=== PATIENT | male | born 1935 | race Caucasian/White ===

== ENCOUNTER → 2017-10-02 09:18 | Outpatient (CLI) | payer MEDICARE, BC, SELFPAY ==
--- NOTE | 2017-10-02 | CI_ITS ---
Cerebrovascular Exam Indications: Follow-up carotid 433.10. Occlusion noted on NATALIO for several years. IMPRESSIONS 1. The bilateral vertebral arteries are patent with normal antegrade flow. 2. Study suggests occlusion involving the right internal carotid artery. 3. Study suggests 50-69% stenosis involving the left internal carotid artery. Labs, prior tests, procedures, and surgery: Left endarterectomy (1993). Labs, prior tests, procedures, and surgery: Left endarterectomy (1993). Carotid duplex study. Complete study and Doppler flow study including spectral analysis, color and locke scale imaging. Height: Height: 175.3cm. Height: 69in. Weight: Weight: 74.8kg. Weight: 164.7lb. Body mass index: BMI: 24.4kg/m^2. Body surface area: BSA: 1.92m^2. Location: Vascular laboratory. Patient status: Outpatient. Tables: Arterial flow: + +--------+--------+ Location V sys V ed + +--------+--------+ Right CCA - proximal 136cm/s 0cm/s + +--------+--------+ Right CCA - distal 95.9cm/s 0.8cm/s + +--------+--------+ Right ECA 422cm/s -------- + +--------+--------+ Right vertebral 98.2cm/s -------- + +--------+--------+ Left CCA - proximal 146cm/s 21.3cm/s + +--------+--------+ Left CCA - distal 101cm/s 20.2cm/s + +--------+--------+ Left ECA 149cm/s -------- + +--------+--------+ Left ICA - proximal 275cm/s 56.6cm/s + +--------+--------+ Left ICA - mid 186cm/s 27.7cm/s + +--------+--------+ Left ICA - distal 155cm/s 39cm/s + +--------+--------+ Left vertebral 33.5cm/s -------- + +--------+--------+ Velocity ratios: + + + + Left, V sys Left, V ed + + + + Max ICA/dist CCA 2.72 2.8 + + + + (Report amended ) Electronically signed by: Romel Ball [id number]
== END ==
PROVIDERS: Family Provider Family Medicine; PCP Family Medicine; Visit Provider Thoracic Surgery (Cardiothoracic Vascular Surgery)
DX: I65.23 Occlusion and stenosis of bilateral carotid arteries (principal)
CPT/HCPCS: 93880

== ENCOUNTER → 2018-11-07 12:47 | Outpatient (CLI) | payer MEDICARE, BC, SELFPAY ==
--- NOTE | 2018-11-07 12:49 | CA_ITS ---
APPROVED REPORT Bracelet Form Coverer: DARIANA Laterality: Bilateral Study Quality: Good Indications: Carotid stenosis Risk Factors Hypertension: Hyperlipidemia Doppler Spectral Velocity Analysis ECA (R) 458.00/28.10 cm/s ECA (L) 147.00/10.60 cm/s dCCA (R) 33.60/6.62 cm/s dICA (L) 103.00/20.40 cm/s pCCA (R) 71.50/12.60 cm/s Rach (L) 204.00/29.10 cm/s pICA (L) 277.00/32.80 cm/s Vert (R) 82.90/19.70 cm/s dCCA (L) 92.70/15.70 cm/s pCCA (L) 124.00/19.70 cm/s Vert (L) 40.90/8.90 cm/s ICA/CCA 2.68 Findings Study suggests 100% occlusion involving the right internal carotid artery unchanged from the 10/02/17 study. Study suggests 50-69% stenosis involving the left internal carotid artery unchanged from the 10/02/17 study. Antegrade flow seen bilateral vertebral arteries. Conclusion Study suggests 100% occlusion involving the right internal carotid artery unchanged from the 10/02/17 study. Study suggests 50-69% stenosis involving the left internal carotid artery unchanged from the 10/02/17 study. Antegrade flow seen bilateral vertebral arteries. Electronically signed by : Romel Ball MD 11/07/2018 20:14:18
== END ==
PROVIDERS: PCP Family Medicine; Visit Provider Thoracic Surgery (Cardiothoracic Vascular Surgery)
DX: I65.23 Occlusion and stenosis of bilateral carotid arteries (principal)
CPT/HCPCS: 93880

== ENCOUNTER → 2020-03-23 09:18 | Outpatient (CLI) | payer MEDICARE, BC, SELFPAY ==
--- NOTE | 2020-03-23 09:22 | CA_ITS ---
APPROVED REPORT Casing Sewer: DARIANA Laterality: Bilateral Study Quality: Good Indications: rt ica total occlussion Risk Factors Hypertension: Hyperlipidemia CAD, Smoking Surgery/Intervention Carotid Stent: left Endarterectomy: right Doppler Spectral Velocity Analysis ECA (R) 543.20/49.70 cm/s ECA (L) 209.60/23.50 cm/s dCCA (R) 47.50/8.30 cm/s dICA (L) 248.00/47.20 cm/s pCCA (R) 120.80/11.80 cm/s Rach (L) 304.70/35.40 cm/s pICA (L) 248.00/52.00 cm/s Vert (R) 115.20/18.80 cm/s dCCA (L) 115.20/16.50 cm/s pCCA (L) 155.20/14.10 cm/s Vert (L) 29.70/7.70 cm/s ICA/CCA Findings Study suggest 100% occlussion involving the right internal carotid artery unchanged from previous 10/2018 study. Study suggest 50-69% stenosis of left internal carotid artery with increaesd velocities since last 10/2018 study. Antegrade flow observed in bilateral vertebral arteries. Conclusion Study suggest 100% occlussion involving the right internal carotid artery unchanged from previous 10/2018 study. Study suggest 50-69% stenosis of left internal carotid artery with increaesd velocities since last 10/2018 study. Antegrade flow observed in bilateral vertebral arteries. Electronically signed by : Romel Ball MD 03/24/2020 16:37:16
== END ==
PROVIDERS: PCP Family Medicine; Visit Provider Thoracic Surgery (Cardiothoracic Vascular Surgery)
DX: I25.10 Atherosclerotic heart disease of native coronary artery without angina pectoris (principal); I65.23 Occlusion and stenosis of bilateral carotid arteries
CPT/HCPCS: 93880

== ENCOUNTER → 2020-05-26 08:54 | Outpatient (POV) | payer MEDICARE, BC, SELFPAY | PROVIDERS: Visit Provider Dermatology | DX: Z00.00 Encounter for general adult medical examination without abnormal findings (principal) ==

== ENCOUNTER → 2020-08-25 11:28 | Outpatient (CLI) | payer MEDICARE, BC, SELFPAY ==
--- NOTE | 2020-08-25 | CA_ITS ---
APPROVED REPORT Left Lower Extremity Venous Study for DVT. Insurance Verifier: [employer] Indications Left lower extremity edema with pain, Hx vein removal in Left leg >20 years ago Risk Factors HTN, HLD Medications Plavix Aspirin Vein Imaging CFV (L): compressive, spontaneous, phasic, augmentation SFJ (L): compressive, spontaneous, phasic, augmentation FEM (L): compressive, spontaneous, phasic, augmentation POP (L): compressive, spontaneous, phasic, augmentation PTV (L): compressive, spontaneous, phasic, augmentation GSV (L): compressive, spontaneous, phasic, augmentation SSV (L): compressive, spontaneous, phasic, augmentation Peroneals (L):compressive, spontaneous, phasic, augmentation GAS (L): compressive, spontaneous, phasic, augmentation Findings Color flow duplex demonstrates no evidence of DVT of the following left lower extremity Veins:Common Femoral Vein, Femoral Vein, Popliteal Vein, Posterior Tibial Veins, Peroneal Veins. Negative for DVT. Edamatous tissue at area of pain in mid lateral medial calf. Conclusion Negative for DVT. Electronically signed by : Romel Ball MD 08/25/2020 16:59:06
== END ==
PROVIDERS: PCP Family Medicine; Visit Provider Family Medicine
DX: M79.605 Pain in left leg (principal); R60.0 Localized edema
CPT/HCPCS: 93971

== ENCOUNTER → 2021-04-29 12:55 | Outpatient (CLI) | payer MEDICARE, BC, SELFPAY ==
--- NOTE | 2021-04-29 13:01 | CA_ITS ---
FINAL REPORT TECHNIQUE: Color Doppler, duplex Doppler and locke scale sonography of the bilateral neck arterial vasculature was performed. Velocities were measured in the carotid arteries. Stenosis evaluation based on the validated velocity criteria. CLINICAL HISTORY: MARIO,HX NATALIO OCCLUISON,STENT LT SUBCLAVIAN,DIZZINESS,SMOKER,HTN,HLD COMPARISON: March 23, 2020 FINDINGS: The peak systolic velocity of the left common carotid artery is 77 cm/s. There is stable occlusion of the right ICA. The peak systolic velocity of the left common carotid artery is 128 cm/s. The peak systolic velocity of the left internal carotid artery is 309 cm/s and end diastolic velocity 24 cm/s. A moderate amount of plaque is visualized. ICA/CCA ratio: 2.9 IMPRESSION: Stable occlusion of the right ICA with findings consistent with greater than 70% stenosis of the left ICA. Bilateral patent vertebral arteries with antegrade flow. Consider CTA or catheter directed angiography to further evaluate. Reviewed, Interpreted and Dictated by Keanu Cho III, MD Transcribed by Rodger Gonsalez Authenticated by Keanu Cho III, MD on 04/29/2021 02:03:18 PM [facility]
== END ==
PROVIDERS: PCP Family Medicine; Visit Provider Thoracic Surgery (Cardiothoracic Vascular Surgery)
DX: R42 Dizziness and giddiness (principal)
CPT/HCPCS: 93880

== ENCOUNTER 2021-08-01 23:47 | Emergency (ER) | payer MEDICARE, BC, SELFPAY ==
[2021-08-01 23:50] VITALS: BP 178/71; PULSE 84; RESP 16; TEMP 36.6; O2SAT 94; BMI 24.3
--- NOTE | 2021-08-02 00:18 | CT_ITS ---
PROCEDURE INFORMATION: Exam: CT Lumbar Spine Without Contrast Exam date and time: 08/02/2021 12:55 AM Age: 85 years old Clinical indication: Injury or trauma; Fall; Blunt trauma (contusions or hematomas) TECHNIQUE: Imaging protocol: Computed tomography images of the lumbar spine without contrast. Radiation optimization: All CT scans at this facility use at least one of these dose optimization techniques: automated exposure control; mA and/or kV adjustment per patient size (includes targeted exams where dose is matched to clinical indication); or iterative reconstruction. COMPARISON: CT THORACIC SPINE WO CON 08/02/2021 12:51 AM FINDINGS: Bones/joints: Age-indeterminate L1 superior endplate fracture. Discs/Spinal canal/Neural foramina: Degenerative changes at L3-L4 producing moderate spinal stenosis. Degenerative changes at L4-L5 produce severe spinal stenosis. Stomach and bowel: Mild sigmoid diverticulosis without diverticulitis. Vasculature: Advanced atherosclerotic disease of the arteries. Soft tissues: Unremarkable. IMPRESSION: 1. Age-indeterminate L1 superior endplate fracture. Please correlate with point tenderness. 2. Degenerative changes at L4-L5 produce severe spinal stenosis.
--- NOTE | 2021-08-02 00:18 | CT_ITS ---
PROCEDURE INFORMATION: Exam: CT Thoracic Spine Without Contrast Exam date and time: 08/02/2021 12:51 AM Age: 85 years old Clinical indication: Injury or trauma; Fall; Blunt trauma (contusions or hematomas) TECHNIQUE: Imaging protocol: Computed tomography images of the thoracic spine without contrast. Radiation optimization: All CT scans at this facility use at least one of these dose optimization techniques: automated exposure control; mA and/or kV adjustment per patient size (includes targeted exams where dose is matched to clinical indication); or iterative reconstruction. COMPARISON: CT CERVICAL SPINE WO CON 08/02/2021 12:48 AM FINDINGS: Bones/joints: Age-indeterminate superior endplate fracture of T12. Discs/Spinal canal/Neural foramina: No significant disc protrusion. No severe spinal canal stenosis. No significant neural foraminal narrowing. Soft tissues: Unremarkable. Other findings: Please see separate report for CT chest. IMPRESSION: Age-indeterminate superior endplate fracture of T12. Please correlate with point tenderness.
--- NOTE | 2021-08-02 00:18 | CT_ITS ---
PROCEDURE INFORMATION: Exam: CT Cervical Spine Without Contrast Exam date and time: 08/02/2021 12:48 AM Age: 85 years old Clinical indication: Injury or trauma; Fall; Blunt trauma TECHNIQUE: Imaging protocol: Computed tomography images of the cervical spine without contrast. Radiation optimization: All CT scans at this facility use at least one of these dose optimization techniques: automated exposure control; mA and/or kV adjustment per patient size (includes targeted exams where dose is matched to clinical indication); or iterative reconstruction. COMPARISON: US CA CAROTID DUPLEX BI 04/29/2021 1:02 PM FINDINGS: Bones/joints: No acute fracture. Normal alignment. Discs/Spinal canal/Neural foramina: No significant disc protrusion. No severe spinal canal stenosis. No significant neural foraminal narrowing. Lungs: Lung apices are normal. Soft tissues: Unremarkable. IMPRESSION: No acute fracture or malalignment of the cervical spine.
--- NOTE | 2021-08-02 00:21 | CT_ITS ---
PROCEDURE INFORMATION: Exam: CT Chest Without Contrast; Diagnostic Exam date and time: 08/02/2021 1:00 AM Age: 85 years old Clinical indication: Injury or trauma; Fall; Blunt trauma (contusions or hematomas); Additional info: Fall bilateral rib pain TECHNIQUE: Imaging protocol: Diagnostic computed tomography of the chest without contrast. Radiation optimization: All CT scans at this facility use at least one of these dose optimization techniques: automated exposure control; mA and/or kV adjustment per patient size (includes targeted exams where dose is matched to clinical indication); or iterative reconstruction. COMPARISON: CT THORACIC SPINE WO CON 08/02/2021 12:51 AM FINDINGS: Lungs: Moderate centrilobular emphysema. Moderate scarring and atelectasis in the lower lungs. Multiple nonspecific pulmonary nodules. For follow-up purposes, examples include: 7 mm right upper lobe pulmonary nodule image 69 series 4, 4 mm lingula nodule image 69 series 4, 3 mm lingula nodule image 76 series 4. Pleural spaces: Unremarkable. No pneumothorax. No pleural effusion. Heart: Coronary artery calcifications. Lymph nodes: Unremarkable. No enlarged lymph nodes. Vasculature: Severe atherosclerotic disease of the aorta. Left subclavian arterial stent. Bones/joints: Status post median sternotomy. Soft tissues: Unremarkable. Other findings: Stigmata of old granulomatous disease. IMPRESSION: 1. No acute intrathoracic organ injury. 2. Pulmonary nodules measuring up to 7 mm.For patients at low risk (minimal or absent history of smoking and of other known risk factors), recommend CT Chest at 3-6 months, then consider CT Chest at 18-24 months. For patients at high risk (history of smoking or of other known risk factors), recommend CT Chest at 3-6 months, then CT Chest at 18-24 months. (Reference: Pablito) REFERENCES: Pablito Soria et al. Guidelines for Management of Incidental Pulmonary Nodules Detected on CT Images: From the Fleischner Society 2017. Radiology. 2017;284(1):228-243.
--- NOTE | 2021-08-02 00:21 | XR_ITS ---
PROCEDURE INFORMATION: Exam: XR Right Elbow Exam date and time: 08/02/2021 1:08 AM Age: 85 years old Clinical indication: Injury or trauma; Fall; Blunt trauma (contusions or hematomas); Elbow; Right TECHNIQUE: Imaging protocol: XR Right elbow. Views: 3 or more views. COMPARISON: No relevant prior studies available. FINDINGS: Bones/joints: No acute fracture or dislocation. Soft tissues: Normal. IMPRESSION: No acute fracture or dislocation.
--- NOTE | 2021-08-02 00:24 | XR_ITS ---
PROCEDURE INFORMATION: Exam: XR Pelvis Exam date and time: 08/02/2021 1:14 AM Age: 85 years old Clinical indication: Injury or trauma; Fall; Blunt trauma (contusions or hematomas); Bilateral; Pelvic region TECHNIQUE: Imaging protocol: XR pelvis. Views: 1 or 2 view. COMPARISON: CT LUMBAR SPINE WO CON 08/02/2021 12:55 AM FINDINGS: Bones/joints: No acute fracture or dislocation. Soft tissues: Unremarkable. Vasculature: Vascular calcifications. IMPRESSION: No acute fracture or dislocation.
[2021-08-02 00:33] LABS: Basophils # 0.2 K/mm3 (0-0.2); Basophils % 2.8 % (0.1-2.0); Eosinophils # 0.1 K/mm3 (0.0-0.4); Eosinophils % 1.4 % (0.1-12.0); Hematocrit 53.2 % (42.0-52.0); Hemoglobin 17.9 g/dL (14.1-18.0); Lymphocytes # 3.4 K/mm3 (0.7-4.5); Lymphocytes % 43.2 % (10-50); Mean Corpuscular HGB Conc 33.6 g/dL (31.8-35.4); Mean Corpuscular Hemoglobin 32.1 pg (27.0-31.2); Mean Corpuscular Volume 95.4 fl (80-94); Mean Platelet Volume 8.6 fl (7.4-10.4); Monocytes # 0.5 K/mm3 (0.1-1.0); Monocytes % 5.7 % (1.7-9.3); Neutrophils # 3.7 K/mm3 (1.8-7.8); Platelet Count 233 K/mm3 (142-424); Red Blood Count 5.57 M/mm3 (4.60-6.20); Red Cell Distribution Width 14.2 % (11.5-17.5); White Blood Count 7.9 K/mm3 (4.8-10.8)
[2021-08-02 00:39] LABS: Alanine Aminotransferase 25 U/L (12-78); Albumin Level 4.9 g/dl (3.5-5.0); Albumin/Globulin Ratio 1.1 (1.1-1.8); Alkaline Phosphatase 90 U/L (38-126); Anion Gap 15.8 mEq/L (5-15); Aspartate Amino Transferase 47 U/L (17-59); Bilirubin,Total 0.5 mg/dl (0.2-1.3); Blood Urea Nitrogen 21 mg/dl (9-20); Calcium 10.1 mg/dl (8.4-10.2); Carbon Dioxide 25 mmol/L (22.0-30.0); Chloride 101 mmol/L (98-107); Creatinine Clearance Estimated 59 mL/min (50-200); Estimated Glomerular Filt Rate 71 ml/min (>60); GFR (African American) 86 ML/MIN (>60); Globulin 4.3 g/dL (1.3-3.2); Glucose 130 mg/dl (74-100); Potassium 3.8 mmoL/L (3.5-5.1); Sodium 138 mmol/L (136-145); Total Protein,Serum 9.2 g/dl (6.3-8.2)
[2021-08-02 00:41] LABS: INR 0.97 (0.9-1.1)
--- NOTE | 2021-08-02 02:32 | HMH.EDFALL ---
ED Disposition Clinical Impression: Contusion of rib on right side Qualifiers: Encounter type: initial encounter Qualified Code(s): S20.211A - Contusion of right front wall of thorax, initial encounter Disposition: Home, Self-Care Condition on Discharge: Good Instructions: DI for Rib Contusion Additional Instructions: see pcp this week Referrals: Janis Sparks MD [Primary Care Provider] - - Critical Care Critical Care Time: No Attestation: On 08/01/21, the high probability of a clinically significant, sudden or life threatening deterioration of the following system(s) required my full and direct attention, intervention and personal management. The time I documented below is in addition to time spent performing reported procedures but includes the following listed in this critical care notation. Medical Decision Making - Medical Records Medical records reviewed: Yes: I reviewed the patient's medical records. - Jaden Inquiry Pt receiving controlled substance: No Vital Signs: 08/01/21 23:50 Temperature 97.8 F Temperature Source Oral Pulse Rate [Left Radial] 84 Respiratory Rate 16 Blood Pressure [Right Arm] 178/71 H Blood Pressure Mean [Right Arm] 106 Blood Pressure Source [Right Arm] Automatic Cuff Blood Pressure Position [Right Arm] Sitting 02 Sat by Pulse Oximetry 94 L Oxygen Delivery Method Room Air - Lab Data Lab results reviewed: Yes: I reviewed the patient's lab results. Lab Results 08/02/21 00:16: WBC 7.9, RBC 5.57, Hgb 17.9, Hct 53.2 H, MCV 95.4 H, MCH 32.1 H, MCHC 33.6, RDW 14.2, Plt Count 233, MPV 8.6, Neut % (Auto) 47.0, Lymph % (Auto) 43.2, [place] % (Auto) 5.7, Eos % (Auto) 1.4, Baso % (Auto) 2.8 H, Neut # (Auto) 3.7, Lymph # (Auto) 3.4, [place] # (Auto) 0.5, Eos # (Auto) 0.1, Baso # (Auto) 0.2 08/02/21 00:16: Sodium 138, Potassium 3.8, Chloride 101, Carbon Dioxide 25, Anion Gap 15.8 H, BUN 21 H, Creatinine 1.00, Estimated Creat Clear 59, Estimated GFR 71, Est GFR ( Amer) 86, Glucose 130 H, Calcium 10.1, Total Bilirubin 0.5, AST 47, ALT 25, Alkaline Phosphatase 90, Total Protein 9.2 H, Albumin 4.9, Globulin 4.3 H, Albumin/Globulin Ratio 1.1 08/02/21 00:16: PT 11.0, INR 0.97 Result diagrams: 08/02/21 00:16 08/02/21 00:16 - Radiology Data #1 Image(s): Elbow, Pelvis Image Reviewed: Yes I have reviewed radiologist's interpretation Preliminary Findings: No Fracture Seen - CT Data CT Scan: C-Spine, Chest, T-Spine, L-Spine Time Received: 02:[address] Reviewed: Yes: I have viewed the radiologist's interpretation Preliminary Findings: Abnormal (no def acute fx ) Medical Decision Narrative: pt with no acute fx Fall HPI - General Chief Complaint: Fall Stated Complaint: AO 07/30/21 Fell injury right rib cage Time Seen by Provider: 08/02/21 02:32 Mode of Arrival: Wheelchair Source of Information: Patient, Spouse, Medical Record Limitations: Physical Limitations Description of Symptoms (Recalled from ER Triage Doc. by RN): FALL 4 DAYS AGO- DID NOT SEE A PROVIDER AT THAT TIME. PT REPORTS HE IS NOT GETTING BETTER AND IS HAVING MORE PAIN. PT REPORTS PAIN TO RIGHT RIBS AND RIGHT ELBOW. PT DENIES LOC- DENIES PAIN IN ALL OTHER AREAS. PT IS ON BLOOD THINNERS. - History of Present Illness HPI Narrative: fell a few days ago and has rt rib pain - has had episodes of dizzyness - on plavix and asa MD complaint: fall Onset (ago): day(s) Fall from: standing Fall witnessed: yes, by family Place fall occurred: home Loss of consciousness: none Prolonged down time: no Symptoms prior to fall: dizziness Context: history of frequent falls Location of injury: chest Severity: moderate Associated symptoms (after fall): denies - Related Data Allergies Allergy/AdvReac Type Severity Reaction Status Date / Time No Known Drug Allergies - Allergy Unknown NA Uncoded 02/14/17 14:34 Nkda [facility] History - Hepatitis A Screen Attestation statement:: This patient has been screened for
[2021-08-02 03:16] VITALS: BP 143/69; PULSE 73; RESP 16; TEMP 36.6; O2SAT 95
== END 2021-08-02 03:18 | disposition home or self-care (01) ==
PROVIDERS: Emergency Provider Emergency Medicine; PCP Family Medicine
DX: S20.211A Contusion of right front wall of thorax, initial encounter (principal); W01.0XXA Fall on same level from slipping, tripping and stumbling without subsequent striking against object, initial encounter; Y92.019 Unspecified place in single-family (private) house as the place of occurrence of the external cause
CPT/HCPCS: 71250; 72125; 72128; 72131; 72170; 73080; 80053; 85025; 85610; 96374; 96375; 99284

== ENCOUNTER → 2021-10-20 09:57 | Outpatient (CLI) | payer MEDICARE, BC, SELFPAY ==
--- NOTE | 2021-10-20 10:03 | CT_ITS ---
FINAL REPORT TECHNIQUE: Axial images were performed through the lumbar spine by computed tomography. Sagittal reconstruction images were also performed. This study was performed with techniques to keep radiation doses as low as reasonably achievable, (ALARA). Individualized dose reduction techniques using automated exposure control or adjustment of mA and/or kV according to the patient''s size were employed. CLINICAL HISTORY: LOW BACK PAIN, no known injury, patient states central low back pain COMPARISON: 08/02/2021 FINDINGS: There is abnormal indentation at the superior endplate of L2 measuring 40%, new since previous. There is abnormal indentation at superior endplate of L1 also measuring about 40%, similar to previous. L3-L5 appear unremarkable. L1-2: Mild retropulsion is superior endplate of L2. L2-3. No significant disc bulge or protrusion. L3-4: Mild diffuse disc bulge is present with mild to moderate bilateral neural foraminal narrowing. L4-5: Mild to moderate diffuse disc bulge is present with mild to moderate bilateral neural foraminal narrowing. L5-S1: Mild diffuse disc bulge is present. IMPRESSION: Interval development of a compression deformity of L2. Please correlate with clinical symptoms. Stable compression deformity of L1. Stable diffuse disc bulges at L3-4 and L4-5. Reviewed, Interpreted and Dictated by Breezy Swenson MD Transcribed by Wen Domínguez Authenticated and [facility]
== END ==
PROVIDERS: PCP Family Medicine; Visit Provider Family Medicine
DX: M54.50 Low back pain, unspecified (principal)
CPT/HCPCS: 72131

== ENCOUNTER 2021-11-09 21:15 | Emergency (ER) | payer MEDICARE, BC, SELFPAY ==
--- NOTE | 2021-11-09 21:09 | ECG_ITS ---
APPROVED REPORT Exam: Resting ECG HR:89 bpm ECG Measurements Heart Rate 89 AXES QRSd 137 QRS 7 QT 383 T 57 QTc 430 Conclusion Rhythm appears to be first-degree AV block RIGHT BUNDLE BRANCH BLOCK [120+ ms QRS DURATION, UPRIGHT V1, 40+ ms S IN I/aVL/V4/V5/V6] ST DEPRESSION, CONSIDER SUBENDOCARDIAL INJURY [0.1+ mV ST DEPRESSION] ABNORMAL ECG UNCONFIRMED REPORT Electronically signed by : Luis Pascual MD 11/10/2021 17:38:06
[2021-11-09 21:13] VITALS: BP 189/88; PULSE 81; RESP 16; TEMP 36.9; O2SAT 94; BMI 25.0
--- NOTE | 2021-11-09 21:13 | XR_ITS ---
PROCEDURE INFORMATION: Exam: XR Chest Exam date and time: 11/09/2021 9:27 PM Age: 86 years old Clinical indication: Other: Chest pain TECHNIQUE: Imaging protocol: Radiologic exam of the chest. Views: 1 view. 2 images received. Portable AP exam 9:29 p.m. COMPARISON: CT CHEST WO CON 08/02/2021 1:00 AM FINDINGS: Tubes, catheters and devices: Overlying compliance monitor electrodes. Lungs: Hypoventilation on the 2nd image, the lower lungs are much better inflated on the 1st image. No focal consolidation. Chronic lower pulmonary interstitial prominence. Multiple tiny bilateral pulmonary nodules were better seen on the previous CT from 08/02/2021, although a dense 5 mm nodule projected over the left heart border likely corresponds with the calcified granuloma seen in the left lung on the prior CT. The pulmonary vessels do not appear significantly congested on series 1. Pleural spaces: Unremarkable. No significant pleural effusion. No pneumothorax. Heart/Mediastinum: The cardiac silhouette is normal. Mediastinal surgical clips. Bones/joints: Sternotomy wires. Osteopenia. There are spinal degenerative changes, with multilevel disc narrrowing and spondylosis. IMPRESSION: 1. No acute findings. 2. Chronic pulmonary views. Os interstitial prominence and granulomatous changes. No focal consolidation. 3. Chronic mediastinal surgical changes. No acute vascular congestion. 4. Additional nonemergency and chronic findings as above.
--- NOTE | 2021-11-09 21:13 | ECG_ITS ---
APPROVED REPORT Exam: Resting ECG HR:60 bpm ECG Measurements Heart Rate 60 AXES QRSd 150 QRS 10 QT 419 T 90 QTc 419 Conclusion SINUS RHYTHM WITH 2ND DEGREE AV BLOCK, MOBITZ TYPE I (WENCKEBACH) RIGHT BUNDLE BRANCH BLOCK ST/T wave depression is unchanged from 2014 UNCONFIRMED REPORT Electronically signed by : Luis Pascual MD 11/10/2021 07:14:36
--- NOTE | 2021-11-09 21:15 | HMH.EDGENADL ---
Discharge Plan Disposition Patient Disposition: Xfer Other Condition: Fair Referrals Follow up/Referrals: Janis Sparks MD [Primary Care Provider] - See instructions Clinical Impressions Clinical Impression: Non-ST elevation (NSTEMI) myocardial infarction Stand Alone Forms Stand Alone Forms: Transfer Record - ED Discharge ED Provider: Divina Hernandez Adult HPI General Chief complaint: PAIN Stated complaint: bilateral arm pain Time Seen by Provider: 11/09/21 21:15 Mode of Arrival: EMS Source of Information: Patient Limitations: No Limitations History of Present Illness HPI narrative: 86-year-old male presenting to the emergency department with chest pain. Pain started roughly 1 hour ago. It was described as an aching pain. Located in the front of his chest and radiating to his right arm. He tried taking nitroglycerin with some relief. Now the pain radiates to both arms. It is described as dull, achy. Seems to have gotten a little better since he arrived with EMS. He has had pain like this before, not in over 20 years. Had a heart attack, 5 vessel CABG. Says he is felt well over the last few days. Denies recent exertional chest pain. No current nausea, diaphoresis, radiation to the back or jaw. No recent illness, fevers, chills, cough, shortness of breath. Related Data Allergies Allergy/AdvReac Type Severity Reaction Status Date / Time No Known Drug Allergies - Allergy Unknown NA Uncoded 02/14/17 14:34 Nkda [facility] Social History Smoking Status: Former smoker ROS Obtained: Yes All systems reviewed & no additional complaints except as documented Constitutional Constitutional: Denies chills, Denies fever(s) and Denies headache(s) ENT Ears, Nose, Mouth, and Throat: Denies dizziness and Denies headache(s) Cardiovascular Cardiovascular: Reports chest pain, Denies diaphoresis, Denies dyspnea, Denies leg edema and Reports radiating jaw, neck or arm pain Respiratory Respiratory: Denies cough, Denies dyspnea and Denies wheezing Gastrointestinal Gastrointestingal: Denies abdominal pain, nausea or vomiting Musculoskeletal Musculoskeletal: Denies back pain Neurologic Neurologic: Denies dizziness and Denies headache(s) Allergic/Immunologic Allergic/Immunologic: Denies wheezing Physical Exam General General appearance: alert and in no apparent distress Head Head exam: atraumatic and normocephalic Eye Eye exam: Present normal appearance Chest Chest inspection: Present normal inspection, symmetric chest wall rise and other (Well-healed sternotomy scar.); Absent tenderness Respiratory Respiratory exam: Present normal lung sounds bilaterally; Absent respiratory distress or wheezes Cardiovascular Cardiovascular exam: Present regular rate and normal rhythm; Absent systolic murmur Abdominal Exam Abdominal exam: Present soft; Absent distention or tenderness Extremities Exam Extremities exam: Present normal inspection and full ROM Neurological Exam Neurological exam: Present alert and oriented X3 Psychiatric Psychiatric exam: Present normal affect and normal mood Skin Skin exam: Present warm and dry Medical Decision Making Medical Records Medical records reviewed: Yes I reviewed the patient's medical records. Jaden Inquiry Pt receiving controlled substance: No Vital Signs: 11/09/21 21:13 11/09/21 21:30 11/09/21 22:00 Temperature 98.4 F Temperature Source Oral Pulse Rate 78 Pulse Rate [Right] 81 Respiratory Rate 16 11 L Blood Pressure 168/75 H 156/80 H Blood Pressure [Right Arm] 189/88 H Blood Pressure Mean 116 113 Blood Pressure Mean [Right Arm] 121 02 Sat by Pulse Oximetry 94 L 92 L Oxygen Delivery Method 11/09/21 22:30 11/09/21 23:00 11/09/21 23:30 Temperature Temperature Source Pulse Rate 89 70 Pulse Rate [Right] Respiratory Rate 16 14 17 Blood Pressure 137/71 131/73 125/63 Blood Pressure [Right Arm] Blood Pressure Mean 97 87 Blood Pres
[2021-11-09 21:30] VITALS: BP 168/75
[2021-11-09 21:32] LABS: Basophils # 0.1 K/mm3 (0-0.2); Basophils % 0.8 % (0.1-2.0); Eosinophils # 0.1 K/mm3 (0.0-0.4); Eosinophils % 0.6 % (0.1-12.0); Hematocrit 48.7 % (42.0-52.0); Hemoglobin 16.2 g/dL (14.1-18.0); Lymphocytes # 4.4 K/mm3 (0.7-4.5); Lymphocytes % 40.1 % (10-50); Mean Corpuscular HGB Conc 33.3 g/dL (31.8-35.4); Mean Corpuscular Hemoglobin 31.4 pg (27.0-31.2); Mean Corpuscular Volume 94.3 fl (80-94); Mean Platelet Volume 8.4 fl (7.4-10.4); Monocytes # 0.7 K/mm3 (0.1-1.0); Monocytes % 6.2 % (1.7-9.3); Neutrophils # 5.7 K/mm3 (1.8-7.8); Neutrophils % 52.4 % (37.0-80.0); Platelet Count 244 K/mm3 (142-424); Red Blood Count 5.16 M/mm3 (4.60-6.20); Red Cell Distribution Width 14.1 % (11.5-17.5)
[2021-11-09 21:38] LABS: Alanine Aminotransferase 27 U/L (12-78); Albumin Level 4.8 g/dl (3.5-5.0); Albumin/Globulin Ratio 1.3 (1.1-1.8); Alkaline Phosphatase 102 U/L (38-126); Anion Gap 19.9 mEq/L (5-15); Aspartate Amino Transferase 39 U/L (17-59); Bilirubin,Total 0.5 mg/dl (0.2-1.3); Blood Urea Nitrogen 22 mg/dl (9-20); Carbon Dioxide 25 mmol/L (22.0-30.0); Chloride 95 mmol/L (98-107); Creatinine Clearance Estimated 56 mL/min (50-200); Estimated Glomerular Filt Rate 92 ml/min (>60); GFR (African American) 111 ML/MIN (>60); Globulin 3.6 g/dL (1.3-3.2); Glucose 140 mg/dl (74-100); Potassium 3.9 mmoL/L (3.5-5.1); Sodium 136 mmol/L (136-145); Total Protein,Serum 8.4 g/dl (6.3-8.2)
[2021-11-09 21:49] LABS: Troponin I 0.02 ng/ml (0.00-0.034)
[2021-11-09 22:00] VITALS: BP 156/80; PULSE 78; RESP 11; O2SAT 92
--- NOTE | 2021-11-09 22:07 | PC.NURSE ---
call to [facility] transfer center, patient wants to transfer there, extension work director cardiology to call back
--- NOTE | 2021-11-09 22:23 | PC.NURSE ---
Dr. Patel spoke with [facility], he has been accepted and will be transferred in the morning
[2021-11-09 22:30] VITALS: BP 137/71; PULSE 89; RESP 16; O2SAT 92
[2021-11-09 23:00] VITALS: BP 131/73; RESP 14; O2SAT 92
[2021-11-09 23:30] VITALS: BP 125/63; PULSE 70; RESP 17; O2SAT 92
--- NOTE | 2021-11-09 23:46 | PC.NURSE ---
pt moved to hospital bed @ this time
[2021-11-10] VITALS (10 sets, daily range): BP systolic 106–148; BP diastolic 45–82; PULSE 64–99; RESP 12–19; TEMP 36.8; O2SAT 91–95
[2021-11-10 00:43] LABS: Troponin I 0.52 ng/ml (0.00-0.034)
--- NOTE | 2021-11-10 00:55 | PC.NURSE ---
Spoke with Brandy at [facility] for Heparin gtt and bolus. She is to enter orders remotely.
[2021-11-10 01:10] LABS: Coronavirus 19, PCR Not Detected (NotDetected); Influenza A, PCR Not Detected (NotDetected); Influenza B, PCR Not Detected (NotDetected)
[2021-11-10 01:19] LABS: Activated Partial Thrombo Time 28.2 seconds (22.8-30.6); INR 1.01 (0.9-1.1); Prothrombin Time 10.9 seconds (10.1-12.5)
--- NOTE | 2021-11-10 03:30 | PC.NURSE ---
LABS DRAWN. PT ASSISTED WITH REPOSITIONING FOR COMFORT. FAMILY REMAINS AT BEDSIDE. NO COMPLAINTS VOICED. NO ACUTE DISTRESS NOTED.
[2021-11-10 03:48] LABS: Troponin I 2.02 ng/ml (0.00-0.034)
--- NOTE | 2021-11-10 03:50 | PC.NURSE ---
MADE AWARE OF TROP. RESULTS.
--- NOTE | 2021-11-10 03:57 | PC.NURSE ---
called and spoke with Sangita Moe @ [facility] to give update that pt trop had increased.
--- NOTE | 2021-11-10 05:47 | PC.NURSE ---
Kenan notified that patient needs to be at [facility] at 7 am.
== END 2021-11-10 06:18 | disposition other institution (70) ==
PROVIDERS: Emergency Provider Emergency Medicine; PCP Family Medicine
DX: R07.9 Chest pain, unspecified (principal); M79.602 Pain in left arm; M79.601 Pain in right arm; I25.2 Old myocardial infarction; Z95.1 Presence of aortocoronary bypass graft; Z20.822 Contact with and (suspected) exposure to COVID-19
CPT/HCPCS: 71045; 80053; 84484; 85025; 85610; 85730; 93005; 96374; 96376; 99285; C9803; U0003; U0005

== ENCOUNTER → 2021-12-28 09:28 | Outpatient (CLI) | payer MEDICARE, BC, SELFPAY ==
--- NOTE | 2021-12-28 09:35 | XR_ITS ---
FINAL REPORT CLINICAL HISTORY: LOW BACK PAIN COMPARISON: CT dated October 20, 2021 FINDINGS: LUMBAR SPINE 5 views of the lumbar spine were obtained. There are moderate compression fractures T12 through L4. The compression fractures at L3 and L4 are new since the CT. The vertebral alignment is normal. There is mild leftward curvature. There are moderate degenerative changes. There are diffuse vascular calcifications. IMPRESSION: Moderate compression fractures T12- L4 with compression fractures at L3 and L4 being new since the prior CT. Reviewed, Interpreted and Dictated by Keanu Cho III, MD Transcribed by Juliann Ewing Authenticated and [facility]
== END ==
PROVIDERS: PCP Family Medicine; Visit Provider Family Medicine
DX: M54.50 Low back pain, unspecified (principal)
CPT/HCPCS: 72110

== ENCOUNTER → 2022-01-07 11:19 | Outpatient (CLI) | payer MEDICARE, BC, SELFPAY ==
[2022-01-07 12:37] LABS: Blood Urea Nitrogen 22 mg/dl (9-20); Estimated Glomerular Filt Rate 80 ml/min (>60); GFR (African American) 97 ML/MIN (>60)
== END ==
PROVIDERS: PCP Family Medicine; Visit Provider Family Medicine
DX: Z01.812 Encounter for preprocedural laboratory examination (principal)
CPT/HCPCS: 36415; 82565; 84520

== ENCOUNTER → 2022-01-17 09:27 | Outpatient (CLI) | payer MEDICARE, BC, SELFPAY ==
--- NOTE | 2022-01-17 09:31 | MR_ITS ---
FINAL REPORT CLINICAL HISTORY: COMPRESSION FRACTURES SEVERE LOW BACK PAIN X6 MONTHS, NO INJURY COMPARISON: Prior CT dated October 20, 2021 FINDINGS: Multiplanar MR imaging of the lumbar spine was performed without and with contrast. On the sagittal T2-weighted images, disc degeneration is seen at multiple levels. The vertebral alignment is normal. There are chronic T12, L1 and L2 compression fractures. There is an acute or subacute moderate L3 compression fracture with 50% loss of central height. There is an acute to subacute L4 compression fracture with 70% loss of anterior height. The L3 and L4 compression fractures are new since the prior CT. The conus is seen at approximately the L1 level and has an unremarkable appearance. L12-L1: An annular disc bulge is present with mild bilateral neural foraminal narrowing. L1-2: There is an annular disc bulge with facet arthropathy. There is mild bilateral neural foraminal narrowing. No significant canal stenosis is seen. L2-3: There is an annular disc bulge with facet arthropathy and vertebral osteophytes. There is mild bilateral neural foraminal narrowing. No significant canal stenosis is seen. L3-4: There is an annular disc bulge with facet arthropathy and vertebral osteophytes. There is mild right and moderate left neural foraminal narrowing. No significant canal stenosis is seen. L4-5: There is an annular disc bulge with facet arthropathy. There is a small right posterolateral disc protrusion with moderate right and mild left neural foraminal narrowing. No significant canal stenosis is seen. L5-S1: There is an annular disc bulge with facet arthropathy. There is mild right and moderate left neural foraminal narrowing. No significant canal stenosis is seen. On the postcontrast images, there is enhancement of the L3 and L4 vertebral bodies as nonspecific finding and could be reactive. IMPRESSION: Multilevel mild degenerative disc disease and spondylosis with areas of neural foraminal narrowing as described. Chronic T12, L1 and L2 compression fractures with new compression fractures at L3 and L4 as above. Reviewed, Interpreted and Dictated by Keanu Cho III, MD Transcribed by Juliann Ewing Authenticated and [facility]
== END ==
PROVIDERS: PCP Family Medicine; Visit Provider Family Medicine
DX: M54.50 Low back pain, unspecified (principal); S32.010A Wedge compression fracture of first lumbar vertebra, initial encounter for closed fracture; S32.040A Wedge compression fracture of fourth lumbar vertebra, initial encounter for closed fracture; S32.050A Wedge compression fracture of fifth lumbar vertebra, initial encounter for closed fracture; S32.020A Wedge compression fracture of second lumbar vertebra, initial encounter for closed fracture; S32.030A Wedge compression fracture of third lumbar vertebra, initial encounter for closed fracture
CPT/HCPCS: 72158; 76376; A9576

== ENCOUNTER 2022-02-12 11:05 | Emergency (ER) | payer MEDICARE, BC, SELFPAY ==
[2022-02-12 11:07] VITALS: BP 138/64; PULSE 88; RESP 18; TEMP 36.6; O2SAT 95; BMI 25.7
--- NOTE | 2022-02-12 11:19 | HMH.EDGENADL ---
Discharge Plan Disposition Patient Disposition: Home, Self-Care Condition: Fair Referrals Follow up/Referrals: Janis Sparks MD [Primary Care Provider] - See instructions Activity Restrictions/Add. Instructions Additional Instructions/Restrictions: Continue taking Lortab 7.5 mg for pain. You may need to take a whole pill when the pain is more severe. For constipation, continue taking MiraLAX daily. You also may use an [id number] Dulcolax suppository daily until bowel movement achieved. Nxvg-[id number] magnesium citrate one half bottle daily until bowel movement achieved. Clinical Impressions Clinical Impression: Back pain, Spinal compression fracture, Acute constipation Discharge ED Provider: Ray Antonio General Adult HPI General Chief complaint: PAIN Stated complaint: compression x spine,pain Time Seen by Provider: 02/12/22 11:59 History of Present Illness HPI narrative: Patient has known spinal compression fractures. He says he was only having mild pain until this Monday when he started having severe paroxysms for spasms of pain. Paroxysms are induced or worsened by movement. No numbness or weakness. No loss of bowel or bladder control. Locates his pain at the lower thoracic and upper lumbar area. He has known compression fractures and has seen a neurosurgeon. states that they do not feel that kyphoplasty/vertebroplasty would be of benefit as the fractures appeared chronic, but recommended physical therapy. He had his first physical therapy on Monday, then started having pain on Monday. His says that he just did some stretches with an elastic band during physical therapy. She suspects that the physical therapy is what caused his pain to worsen. He feels like there is something slipping in his back and wonders whether his fractures have worsened. He takes Lortab 7.5 mg for pain, he took a half of a pill this morning. He has been constipated and is hesitant to take more pain medication. Declines any pain medication at this time. Patient has not had a bowel movement in over a week. He has been trying MiraLAX and prune juice and prunes without improvement. No enemas or laxatives or suppositories have been tried. He is not complaining of any rectal or abdominal pain. Related Data Allergies Allergy/AdvReac Type Severity Reaction Status Date / Time No Known Drug Allergies - Allergy Unknown NA Uncoded 02/14/17 14:34 Nkda [facility] Disclaimer: The information contained in this section may have been updated after the patient was seen, as this information can be updated by other users. Social History Smoking Status: Unknown if ever smoked ROS Obtained: Yes Systems reviewed as appropriate & no additional complaints except as documented Constitutional Constitutional: Denies fever(s) and Denies weakness Musculoskeletal Musculoskeletal: Reports back pain, Denies numbness and Denies radiating pain into limb Neurologic Neurologic: Denies numbness and Denies weakness Physical Exam General General appearance: alert and in no apparent distress Chest Chest inspection: Present normal inspection and symmetric chest wall rise Respiratory Respiratory exam: Absent respiratory distress Cardiovascular Cardiovascular exam: Present regular rate Back Exam Back exam: Present vertebral tenderness Back 1 view image: 1. Tenderness Neurological Exam Neurological exam: Present alert and oriented X3; Absent motor sensory deficit Psychiatric Psychiatric exam: Present normal affect and normal mood Skin Skin exam: Present warm and dry Medical Decision Making Medical Records Medical records reviewed: Yes I reviewed the patient's medical records. MR Comment: Reviewed previous lumbar spine x-ray and MRI results: Procedure(s): XR lumbar spine min 4V Accession Number(s): [id number] cc: Keanu Cho MD; Janis Sparks MD~ FINAL REPORT CLINICAL HISTORY: LOW BACK PAIN C
[2022-02-12 12:00] VITALS: BP 106/59; PULSE 68; O2SAT 93
--- NOTE | 2022-02-12 12:05 | CT_ITS ---
PROCEDURE INFORMATION: Exam: CT Lumbar Spine Without Contrast Exam date and time: 02/12/2022 12:37 PM Age: 86 years old Clinical indication: Low back pain; Additional info: Back pain, comp fxs TECHNIQUE: Imaging protocol: Computed tomography of the lumbar spine without contrast. Radiation optimization: All CT scans at this facility use at least one of these dose optimization techniques: automated exposure control; mA and/or kV adjustment per patient size (includes targeted exams where dose is matched to clinical indication); or iterative reconstruction. COMPARISON: MR LUMBAR SPINE WO/W CON 01/17/2022 9:49 AM FINDINGS: Bones/joints: Severe osteopenia with chronic L1, L2, L3, and L4 compression fractures, with 4 mm retropulsion at the L3 and L4 levels. Localized sclerosis in association with the L4 compression fracture. Multilevel lumbar spinal stenosis, of greatest severity at the L3-L4 and L4-L5 levels, in association with disc bulging, ligamentous hypertrophy, and facet arthropathy.Note that assessment of disc, spinal cord, and nerve root pathology is limited in the absence of intrathecal contrast. Vasculature: Prominent vascular calcification. Soft tissues: Unremarkable appearance of the paraspinous soft tissues. IMPRESSION: 1. Multilevel lumbar spinal stenosis, of greatest severity at the L3-L4 and L4-L5 levels, in association with disc bulging, ligamentous hypertrophy, and facet arthropathy. 2. Severe osteopenia with chronic L1, L2, L3, and L4 compression fractures, with 4 mm retropulsion at the L3 and L4 levels.
--- NOTE | 2022-02-12 12:05 | CT_ITS ---
PROCEDURE INFORMATION: Exam: CT Thoracic Spine Without Contrast Exam date and time: 02/12/2022 12:34 PM Age: 86 years old Clinical indication: Pain in thoracic spine; Additional info: Back pain, comp fxs TECHNIQUE: Imaging protocol: Computed tomography of the thoracic spine without contrast. Radiation optimization: All CT scans at this facility use at least one of these dose optimization techniques: automated exposure control; mA and/or kV adjustment per patient size (includes targeted exams where dose is matched to clinical indication); or iterative reconstruction. COMPARISON: CT THORACIC SPINE WO CON 08/02/2021 12:51 AM FINDINGS: Bones/joints: Osteopenia with stable chronic compression deformities, of greatest severity at the T12 level. Additional Schmorl's nodes and vertebral endplate irregularity. Degenerative change and mild scoliosis. Soft tissues: Normal caliber of the paraspinous soft tissues. Vasculature: Left subclavian artery stent. Calcification and ectasia of the thoracic aorta. Lymph nodes: Multiple calcified and noncalcified lymph nodes. Lungs: Severe COPD, interstitial disease, chronic granulomatous disease. Additional noncalcified nodules which were better visualized on previous chest CT. Mild dependent airspace disease. Coronary arteries: Coronary artery calcification. Other findings: Small hiatal hernia. When correlating with the previous study, no significant interval changes are present. IMPRESSION: 1. Osteopenia with stable chronic compression deformities in the thoracic spine, of greatest severity at the T12 level. 2. Additional findings as described above.
[2022-02-12 12:46] VITALS: BP 129/63; PULSE 95; RESP 18; O2SAT 97
[2022-02-12 13:01] VITALS: BP 94/49; PULSE 80; RESP 18; O2SAT 94
[2022-02-12 13:30] VITALS: BP 129/70; PULSE 86; RESP 16; O2SAT 88
[2022-02-12 14:36] VITALS: BP 129/70; PULSE 86; RESP 16; TEMP 36.6; O2SAT 94
== END 2022-02-12 14:40 | disposition home or self-care (01) ==
PROVIDERS: Emergency Provider Emergency Medicine; PCP Family Medicine
DX: M54.50 Low back pain, unspecified (principal); M51.46 Schmorl's nodes, lumbar region; S32.039A Unspecified fracture of third lumbar vertebra, initial encounter for closed fracture; S32.049A Unspecified fracture of fourth lumbar vertebra, initial encounter for closed fracture; I77.812 Thoracoabdominal aortic ectasia; M47.9 Spondylosis, unspecified; M62.838 Other muscle spasm; G89.29 Other chronic pain; D71 Functional disorders of polymorphonuclear neutrophils; J84.9 Interstitial pulmonary disease, unspecified; J44.9 Chronic obstructive pulmonary disease, unspecified; Z95.5 Presence of coronary angioplasty implant and graft
CPT/HCPCS: 72128; 72131; 99285

== ENCOUNTER → 2022-04-05 16:55 | Outpatient (CLI) | payer MEDICARE, BC, SELFPAY ==
--- NOTE | 2022-04-05 17:05 | XR_ITS ---
PROCEDURE INFORMATION: Exam: XR Chest Exam date and time: 04/05/2022 5:06 PM Age: 86 years old Clinical indication: Pain; Right-sided; Prior surgery; Surgery type: Open heart and kypho; Additional info: Chest pain, fever TECHNIQUE: Imaging protocol: Radiologic exam of the chest. Views: 2 views. COMPARISON: CR XR CHEST PORTABLE 11/09/2021 9:27 PM FINDINGS: Lungs: A few left lung calcified granulomas are noted. There is very mild chronic interstitial prominence. No consolidation or overt failure. Pleural spaces: Unremarkable. No pleural effusion. No pneumothorax. Heart/Mediastinum: Prior CABG. The heart is not enlarged. Vasculature: Unremarkable. Bones/joints: Evidence of prior median sternotomy. Vertebroplasty of what I believe is the L1 body. Other findings: Round artifactual opacity projects over the left heart border on 2 of the frontal views. IMPRESSION: No acute infiltrate or failure.
== END ==
PROVIDERS: PCP Family Medicine; Visit Provider Family Medicine
DX: R07.9 Chest pain, unspecified (principal); R50.9 Fever, unspecified
CPT/HCPCS: 71046

== ENCOUNTER → 2022-05-17 12:00 | Outpatient (CLI) | payer MEDICARE, BC, SELFPAY ==
--- NOTE | 2022-05-17 12:10 | XR_ITS ---
FINAL REPORT CLINICAL HISTORY: THORACIC BACK PAIN FINDINGS: THORACIC SPINE Three views were obtained. On the lateral view there is a compression deformity of a lower thoracic vertebrae with about 70% loss of height. This is believed to be T12. There are postoperative changes from prior kyphoplasty. There is indentation of the superior endplate of T10 which is stable. There is significant loss of height of the upper lumbar vertebrae. There is no malalignment. The disc spaces are preserved. There is no soft tissue abnormality. IMPRESSION: Stable multiple compression deformities. Reviewed, Interpreted and Dictated by Breezy Swenson MD Transcribed by Juliann Ewing Authenticated and [facility]
== END ==
PROVIDERS: PCP Family Medicine; Visit Provider Family Medicine
DX: M54.6 Pain in thoracic spine (principal)
CPT/HCPCS: 72072

== ENCOUNTER → 2022-05-27 14:30 | Outpatient (CLI) | payer MEDICARE, BC, SELFPAY ==
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
== END ==
PROVIDERS: PCP Family Medicine; Visit Provider Family Medicine
DX: R07.81 Pleurodynia (principal)
CPT/HCPCS: 71101

== ENCOUNTER 2022-10-11 11:00 | Outpatient (RCR) | payer MEDICARE, BC, SELFPAY | END 2022-10-11 11:05 | disposition home or self-care (01) | LOC: PT 11:00 | PROVIDERS: Visit Provider Radiology Diagnostic Radiology | DX: S32.010D Wedge compression fracture of first lumbar vertebra, subsequent encounter for fracture with routine healing (principal) | CPT/HCPCS: 97010; 97110; 97116; 97163; 97164; 97530 ==

== ENCOUNTER 2022-11-24 09:44 | Emergency (ER) | payer OTHER, MEDICARE, BC, SELFPAY ==
[2022-11-24 09:46] VITALS: BP 166/62; PULSE 78; RESP 16; TEMP 36.6; O2SAT 97; BMI 25.4
[2022-11-24 10:00] VITALS: BP 127/54; PULSE 68; O2SAT 96
--- NOTE | 2022-11-24 10:03 | PC.NURSE ---
dr martinez at bedside
--- NOTE | 2022-11-24 10:03 | PC.NURSE ---
Dr. Coburn at BS for pt eval
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
[2022-11-24 10:36] LABS: Basophils # 0.1 K/mm3 (0-0.2); Basophils % 0.6 % (0.1-2.0); Eosinophils % 0.3 % (0.1-12.0); Hematocrit 51.9 % (42.0-52.0); Hemoglobin 16.6 g/dL (14.1-18.0); Lymphocytes # 1.9 K/mm3 (0.7-4.5); Lymphocytes % 22.7 % (10-50); Mean Corpuscular HGB Conc 31.9 g/dL (31.8-35.4); Mean Corpuscular Hemoglobin 30.2 pg (27.0-31.2); Mean Corpuscular Volume 94.8 fl (80-94); Mean Platelet Volume 7.9 fl (7.4-10.4); Monocytes # 0.4 K/mm3 (0.1-1.0); Monocytes % 5.3 % (1.7-9.3); Neutrophils # 5.9 K/mm3 (1.8-7.8); Platelet Count 237 K/mm3 (142-424); Red Blood Count 5.48 M/mm3 (4.60-6.20); Red Cell Distribution Width 14.6 % (11.5-17.5); White Blood Count 8.3 K/mm3 (4.8-10.8)
[2022-11-24 10:40] LABS: Chloride 99 mmol/L (98-107); Potassium 4.1 mmoL/L (3.5-5.1); Sodium 138 mmol/L (136-145)
[2022-11-24 10:42] LABS: Blood Urea Nitrogen 15 mg/dl (9-20); Creatinine Clearance Estimated 51 mL/min (50-200); Estimated Glomerular Filt Rate 80 ml/min (>60); GFR (African American) 97 ML/MIN (>60)
[2022-11-24 10:43] LABS: Alanine Aminotransferase 24 U/L (12-78); Albumin Level 4.6 g/dl (3.5-5.0); Albumin/Globulin Ratio 1.1 (1.1-1.8); Alkaline Phosphatase 99 U/L (38-126); Anion Gap 15.1 mEq/L (5-15); Aspartate Amino Transferase 34 U/L (17-59); Bilirubin,Total 0.7 mg/dl (0.2-1.3); Calcium 9.8 mg/dl (8.4-10.2); Carbon Dioxide 28 mmol/L (22.0-30.0); Globulin 4.1 g/dL (1.3-3.2); Glucose 107 mg/dl (74-100); Total Protein,Serum 8.7 g/dl (6.3-8.2)
[2022-11-24 14:33] VITALS: BP 130/88; PULSE 61; RESP 20; TEMP 36.6; O2SAT 97
== END 2022-11-24 14:36 | disposition home or self-care (01) ==
PROVIDERS: Emergency Provider Emergency Medicine; PCP Family Medicine
DX: M54.9 Dorsalgia, unspecified (principal); I25.10 Atherosclerotic heart disease of native coronary artery without angina pectoris; K86.89 Other specified diseases of pancreas; R91.8 Other nonspecific abnormal finding of lung field; V49.49XA Driver injured in collision with other motor vehicles in traffic accident, initial encounter
CPT/HCPCS: 70450; 71275; 72125; 72128; 72131; 74174; 80053; 85025; 86850; 99285; Q9967

== ENCOUNTER 2022-12-03 15:21 | Inpatient (IN) | payer MEDICARE, BC, SELFPAY ==
[2022-12-03] VITALS (8 sets, daily range): BP systolic 110–142; BP diastolic 50–70; PULSE 66–74; RESP 16–20; TEMP 36.9; O2SAT 85–96; BMI 20.7; BMI 32.0
--- NOTE | 2022-12-03 15:28 | ECG_ITS ---
APPROVED REPORT Exam: Resting ECG HR:72 bpm ECG Measurements Heart Rate 72 AXES MS 262 P 72 QRSd 150 QRS -13 QT 400 T 61 QTc 424 Conclusion SINUS RHYTHM WITH FIRST DEGREE AV BLOCK RIGHT BUNDLE BRANCH BLOCK [120+ ms QRS DURATION, UPRIGHT V1, 40+ ms S IN I/aVL/V4/V5/V6] MODERATE VOLTAGE CRITERIA FOR LVH, CONSIDER NORMAL VARIANT [MEETS CRITERIA IN ONE OF: R(aVL), S(V1), R(V5), R(V5/V6)+S(V1)] ABNORMAL ECG UNCONFIRMED REPORT Electronically signed by : Luis Pascual MD 12/04/2022 07:34:00
--- NOTE | 2022-12-03 15:36 | PC.NURSE ---
Dr. Gar at [facility] for pt eval
--- NOTE | 2022-12-03 15:48 | CT_ITS ---
PROCEDURE INFORMATION: Exam: CT Abdomen And Pelvis With Contrast Exam date and time: 12/03/2022 4:28 PM Age: 87 years old Clinical indication: Abdominal pain; Prior surgery; Surgery date: Post-operative (0-2 days); Surgery type: Hernia repair; Additional info: Recent bilat ing sreedhar repair, diffuse pain TECHNIQUE: Imaging protocol: Computed tomography of the abdomen and pelvis with contrast. Radiation optimization: All CT scans at this facility use at least one of these dose optimization techniques: automated exposure control; mA and/or kV adjustment per patient size (includes targeted exams where dose is matched to clinical indication); or iterative reconstruction. Contrast material: ISOVUE; Contrast volume: 70 ml; Contrast route: IV; REPORTING DATA: Count of CT and Cardiac NM exams in prior 12 months: This patient has received 8 known CTs and 0 known cardiac nuclear medicine studies in the 12 months prior to the current study. COMPARISON: CT ANGIO ABDOMEN PELVIS 11/24/2022 11:32 AM FINDINGS: Liver: Normal. No mass. Gallbladder and bile ducts: Normal. No calcified stones. No ductal dilation. Pancreas: Fatty atrophy of the pancreas. Spleen: Normal. No splenomegaly. Adrenal glands: Normal. No mass. Kidneys and ureters: Mild bilateral renal cortical scarring. Mild bilateral perinephric inflammatory fat stranding, nonspecific, and can be seen in the setting of pyelonephritis versus diabetes. Stomach and bowel: Unremarkable. No obstruction. No mucosal thickening. Appendix: Post appendectomy changes. Intraperitoneal space: No ascites. No free air. No significant fluid collection. Vasculature: Severe aortoiliac atherosclerosis. No abdominal aortic aneurysm. Lymph nodes: Unremarkable. No enlarged lymph nodes. Urinary bladder: Unremarkable as visualized. Reproductive: Unremarkable as visualized. Bones/joints: Persistent L1 vertebral augmentation changes. Again seen are L2, L3, and L4 vertebral body compression fractures, grossly unchanged compared to CT 11/24/2022 and worst at the L4 vertebral body, with 90% height loss. Soft tissues: Post surgical changes of bilateral inguinal hernia repair, with no significant residual hernia present. There is subcutaneous gas within bilateral inguinal canals, and along bilateral anterolateral abdominal kumari, within normal limits for recent surgical repair. No abscess or abnormal fluid collection. IMPRESSION: 1. Post surgical changes of bilateral inguinal hernia repair, with no significant residual hernia present. There is subcutaneous gas within bilateral inguinal canals, and along bilateral anterolateral abdominal kumari, within normal limits for recent surgical repair. No abscess or abnormal fluid collection. 2. Persistent L1 vertebral augmentation changes. Again seen are L2, L3, and L4 vertebral body compression fractures, grossly unchanged compared to CT 11/24/2022 and worst at the L4 vertebral body, with 90% height loss. 3. Mild bilateral renal cortical scarring. Mild bilateral perinephric inflammatory fat stranding, nonspecific, and can be seen in the setting of pyelonephritis versus diabetes.
--- NOTE | 2022-12-03 15:49 | CT_ITS ---
PROCEDURE INFORMATION: Exam: CTA Chest With Contrast Exam date and time: 12/03/2022 4:28 PM Age: 87 years old Clinical indication: Shortness of breath; Additional info: Post operative hypoxemia, SOB TECHNIQUE: Imaging protocol: Computed tomographic angiography of the chest with contrast. Exam focused on the arteries. 3D rendering (Not supervised by radiologist): MIP and/or 3D reconstructed images were created by the technologist. Radiation optimization: All CT scans at this facility use at least one of these dose optimization techniques: automated exposure control; mA and/or kV adjustment per patient size (includes targeted exams where dose is matched to clinical indication); or iterative reconstruction. Contrast material: ISOVUE; Contrast volume: 70 ml; Contrast route: INTRAVENOUS (IV); REPORTING DATA: Count of CT and Cardiac NM exams in prior 12 months: This patient has received 8 known CTs and 0 known cardiac nuclear medicine studies in the 12 months prior to the current study. COMPARISON: CT ANGIO CHEST 11/24/2022 11:32 AM FINDINGS: Pulmonary arteries: No pulmonary embolism. Aorta: Coronary artery and aortic atherosclerosis. No aneurysm. Patent proximal left subclavian artery stent. Trachea: The central airways are patent. Lungs: Emphysematous changes throughout the lungs. Moderate bibasilar atelectasis. No dense pulmonary consolidation or suspicious pulmonary mass. Pleural spaces: No pleural effusion or pneumothorax. Heart: Post cardiac surgery changes. Sternotomy wires appear intact. Mild to moderate cardiomegaly. No pericardial effusion. Lymph nodes: Calcified mediastinal and hilar lymph nodes, likely related to prior granulomatous disease. Bones/joints: Stable vertebral augmentation changes in the L1 vertebral body. Unchanged L2 and L3 vertebral body superior endplate compression fractures, with approximately 20% height loss, present since CT dated 11/24/2022. Soft tissues: Partially visualized subcutaneous soft tissues emphysema along bilateral lateral abdominal kumari, better visualized on CT abdomen pelvis obtained on the same date, likely post surgical in etiology. IMPRESSION: 1. Emphysematous changes throughout the lungs. Moderate bibasilar atelectasis. No dense pulmonary consolidation or suspicious pulmonary mass. 2. Stable vertebral augmentation changes in the L1 vertebral body. Unchanged L2 and L3 vertebral body superior endplate compression fractures, with approximately 20% height loss, present since CT dated 11/24/2022. 3. Coronary artery and aortic atherosclerosis. No aneurysm. Patent proximal left subclavian artery stent. 4. No pulmonary embolism. 5. Partially visualized subcutaneous soft tissues emphysema along bilateral lateral abdominal kumari, better visualized on CT abdomen pelvis obtained on the same date, likely post surgical in etiology.
--- NOTE | 2022-12-03 15:51 | HMH.EDGENADL ---
Discharge Plan Disposition Patient Disposition: Admitted Prescriptions Prescriptions: No Action clopidogrel 75 mg tablet 75 mg PO DAILY oxycodone-acetaminophen 5-325 mg tablet See Rx Instructions .ROUTE .COMPLEX Rx Instructions: tab simvastatin 20 mg tablet 20 mg PO DAILY hydrochlorothiazide 12.5 mg capsule 25 mg PO DAILY Patient Comments: TAKE 2 CAPSULES BY MOUTH DAILY amlodipine-benazepril 10-20 mg capsule 1 cap PO DAILY Referrals Follow up/Referrals: Janis Sparks MD [Primary Care Provider] - See instructions Clinical Impressions Clinical Impression: Generalized weakness, Hypoxemia, History of recent surgery, Myocardial injury, Acute hyponatremia, Volume overload Discharge ED Provider: Brianne Gar General Adult HPI General Chief complaint: Shortness of Breath/Dyspnea Stated complaint: soa Time Seen by Provider: 12/03/22 15:32 Mode of Arrival: EMS Source of Information: Patient Limitations: No Limitations Description of Symptoms (Recalled from ER Triage Doc. by RN): Pt had hernia surgery on 12/01/2022 at [facility], and was d/c'd home 12/02/2022. He woke up and felt like he could not catch his breath. Was put on 3LNC via fire department. When triaged RA was 85 and was placed on NC 2 L. He stated that he was given a pain medication (percocet). Family stated that he took medication around 1200 and tried to get him out of the chair to go to the restroom was grogy and hard to get up. History of Present Illness HPI narrative: Patient is an 87-year-old male with a history of coronary artery disease status post 5 vessel CABG, questionable COPD, with recent bilateral inguinal hernia repair presenting today with multiple complaints. His who is at the bedside is also the historian and states that patient was doing okay after the surgery other than some abdominal discomfort and she try to get him up to go the bathroom and it took nearly 45 minutes to get him up as he was profoundly weak. He also states he had significant dyspnea during that time which is since improved. He has lower extremity edema which is at his baseline. No asymmetry to that. No fevers chills or cough. No hemoptysis. No history of pulmonary realism. He is on aspirin and Plavix and was continued on this even during surgery. Not on any further anticoagulation that he is aware of. Oxygen saturations were 82% on room air prior to my assessment. I discussed with his who states she had a pulse oximeter at home after COVID and took his oxygen which it is in the mid 80s and he is not normally on oxygen supplementation at home. His blood pressure was low at home 90 systolic he was brought in by EMS without any further intervention. Related Data Home Medications Medication Instructions Recorded Confirmed amlodipine 10 mg-benazepril 20 mg 1 cap PO DAILY 12/03/22 12/03/22 capsule clopidogrel 75 mg tablet 75 mg PO DAILY 12/03/22 12/03/22 hydrochlorothiazide 12.5 mg capsule 25 mg PO DAILY 12/03/22 12/03/22 oxycodone-acetaminophen 5 mg-325 See Rx Instructions .Route .COMPLEX 12/03/22 12/03/22 mg tablet simvastatin 20 mg tablet 20 mg PO DAILY 12/03/22 12/03/22 Allergies Allergy/AdvReac Type Severity Reaction Status Date / Time No Known Drug Allergies - Allergy Unknown NA Uncoded 02/14/17 14:34 Nkda [facility] Disclaimer: The information contained in this section may have been updated after the patient was seen, as this information can be updated by other users. Medical History (Updated 12/03/22 @ 17:44 by Brianne Gar MD) Hernia Social History (Updated 11/24/22 @ 14:51 by Lety Coburn DO) Smoking Status: Never smoker alcohol intake: never current occupational status: retired Travel in the last 8 weeks: None ROS Obtained: Yes All systems reviewed & no additional complaints except as documented Physical Exam General General appearance: alert Respiratory Resp
[2022-12-03 16:07] LABS: Alanine Aminotransferase 22 U/L (12-78); Albumin/Globulin Ratio 1.2 (1.1-1.8); Alkaline Phosphatase 70 U/L (38-126); Anion Gap 14.2 mEq/L (5-15); Aspartate Amino Transferase 41 U/L (17-59); Bilirubin,Total 1.5 mg/dl (0.2-1.3); Blood Urea Nitrogen 21 mg/dl (9-20); Carbon Dioxide 26 mmol/L (22.0-30.0); Chloride 92 mmol/L (98-107); Creatinine Clearance Estimated 49 mL/min (50-200); Estimated Glomerular Filt Rate 71 ml/min (>60); GFR (African American) 86 ML/MIN (>60); Globulin 3.3 g/dL (1.3-3.2); Glucose 131 mg/dl (74-100); Lipase 11 U/L (23-300); Magnesium 1.6 mg/dl (1.6-2.3); Phosphorous 2.9 mg/dl (2.5-4.5); Potassium 4.2 mmoL/L (3.5-5.1); Sodium 128 mmol/L (136-145); Total Protein,Serum 7.3 g/dl (6.3-8.2)
[2022-12-03 16:09] LABS: Basophils % 0.3 % (0.1-2.0); Eosinophils # 0.1 K/mm3 (0.0-0.4); Eosinophils % 0.6 % (0.1-12.0); Hematocrit 43.7 % (42.0-52.0); Hemoglobin 14.2 g/dL (14.1-18.0); Lymphocytes # 1.7 K/mm3 (0.7-4.5); Lymphocytes % 13.6 % (10-50); Mean Corpuscular HGB Conc 32.4 g/dL (31.8-35.4); Mean Corpuscular Hemoglobin 30.7 pg (27.0-31.2); Mean Corpuscular Volume 94.5 fl (80-94); Mean Platelet Volume 8.2 fl (7.4-10.4); Monocytes # 0.9 K/mm3 (0.1-1.0); Monocytes % 7.1 % (1.7-9.3); Neutrophils # 10.1 K/mm3 (1.8-7.8); Neutrophils % 78.4 % (37.0-80.0); Platelet Count 240 K/mm3 (142-424); Red Blood Count 4.62 M/mm3 (4.60-6.20); Red Cell Distribution Width 14.8 % (11.5-17.5); White Blood Count 12.8 K/mm3 (4.8-10.8)
--- NOTE | 2022-12-03 16:17 | PC.NURSE ---
Pt gone to RAD via stretcher
--- NOTE | 2022-12-03 16:17 | PC.NURSE ---
Pt to ct scan
[2022-12-03 16:19] LABS: NT Pro Brain Natriuretic Pep. 1830 pg/mL (0-450)
[2022-12-03 16:29] LABS: Lactic Acid 1.1 mmol/L (0.7-2.1)
[2022-12-03 16:32] LABS: Troponin I 1.02 ng/ml (0.00-0.034)
--- NOTE | 2022-12-03 16:32 | PC.NURSE ---
Dr. Gar notified of critical troponin
--- NOTE | 2022-12-03 16:36 | PC.NURSE ---
Pt returned from RAD
[2022-12-03 17:11] LABS: Appearance,Urine CLEAR (Clear); Bilirubin,Urine Negative (Negative); Blood, Urine Negative (Negative); Color,Urine YELLOW (Yellow); Glucose,Urine (UA) Negative (Negative); Ketones,Urine Negative (Negative); Leukocyte Esterase,Urine Negative (Negative); Microscopic, Urine URINE MICROSCOPIC (MICROSCOPIC); Nitrate,Urine Negative (Negative); Protein,Urine Negative (Negative); Specific Gravity, Urine <= 1.005 (1.005-1.030); Urobilinogen,Urine 0.2 EU/dl (0.2)
--- NOTE | 2022-12-03 17:29 | PC.NURSE ---
called [facility] for possible transfer
[2022-12-03 17:34] LABS: Squamous Epithelial Cell,Urine Occasional #/hpf (0-5); WBC,Urine Occasional #/hpf (0-3)
--- NOTE | 2022-12-03 18:06 | PC.NURSE ---
called for follow up on hospitalist calling they advised that she was busy in the ED and would call as soon as she could.
[2022-12-03 18:17] LABS: Troponin I 0.99 ng/ml (0.00-0.034)
--- NOTE | 2022-12-03 18:17 | PC.NURSE ---
notified dr. jj of critical troponin result
--- NOTE | 2022-12-03 18:26 | PC.NURSE ---
called [facility] and cancelled transfer, pt to be admitted here.
--- NOTE | 2022-12-03 18:28 | PC.NURSE ---
notified house painter of admission
--- NOTE | 2022-12-03 18:41 | PC.NURSE ---
josiahrn called report to second floor at this time
--- NOTE | 2022-12-03 18:47 | PC.NURSE ---
arrived to floor by stretcher from ED
--- NOTE | 2022-12-03 19:05 | EXP.HP ---
History of Present Illness *Admission Date: 12/03/22 *Reason for visit:: abd pain *History of present illness: This is an 87-year-old male with PMHx of coronary artery disease status post 5 vessel CABG, HLD, with recent bilateral inguinal hernia repair, brought in by EMS with abdominal pain and dyspnea on excerption. Spouse called after referred increased weakness and sob. He has lower extremity edema which is at his baseline. No asymmetry to that. No fevers chills or cough. No hemoptysis. No history of pulmonary realism. He is on aspirin and Plavix and was continued on this even during surgery. Admitted for management and treatment. [facility] Disclaimer: The information contained in this section may have been updated after the patient was seen, as this information can be updated by other users. Medical History (Updated 12/04/22 @ 12:18 by Kyler Paz MD) CVA (cerebral vascular accident) Hernia Hyperlipidemia Hypertension Macular degeneration Myocardial infarction Surgical History (Updated 12/03/22 @ 19:43 by Natasha Penaloza RN) History of appendectomy History of cardiac cath History of carotid endarterectomy Hx of CABG Hx of kyphoplasty Social History (Updated 11/24/22 @ 14:51 by Lety Coburn DO) Smoking Status: Never smoker alcohol intake: never current occupational status: retired Travel in the last 8 weeks: None Review of Systems Review of Systems Review of systems:: pertinent systems reviewed and negative unless documented below Meds Home Medications and Allergies Home Medications Medication Instructions Recorded Confirmed Type amlodipine 10 mg-benazepril 20 mg 1 cap PO DAILY 12/03/22 12/03/22 History capsule aspirin 81 mg chewable tablet 81 mg PO DAILY Blood Thinner 12/03/22 12/03/22 History bisacodyl 5 mg tablet,delayed 10 mg PO DAILY Constipation 12/03/22 12/03/22 History release clopidogrel 75 mg tablet 75 mg PO DAILY Blood Thinner 12/03/22 12/03/22 History docusate sodium 100 mg capsule 100 mg PO BID Constipation 12/03/22 12/03/22 History hydrochlorothiazide 12.5 mg capsule 25 mg PO DAILY Blood pressure/fluid 12/03/22 12/04/22 History nitroglycerin 0.4 mg sublingual 0.4 mg sublingual Q5M PRN Chest 12/03/22 12/03/22 History tablet Pain oxycodone-acetaminophen 5 mg-325 5 tab PO Q6HP PRN Pain (Scale 12/03/22 12/04/22 History mg tablet Score 4-6) simvastatin 20 mg tablet 20 mg PO DAILY Cholesterol 12/03/22 12/04/22 History New Prescriptions to Start Prescriptions: Allergies Allergy/AdvReac Type Severity Reaction Status Date / Time No Known Allergies Allergy Unverified 12/04/22 08:23 Exam Data for Last 24 hours Vital signs and Labs for Last 24 Hours: Temp Pulse Resp BP Pulse Ox O2 Del Method O2 Flow Rate 98.4 F 66 16 123/63 96 Nasal Cannula 3 12/03/22 18:53 12/03/22 18:53 12/03/22 18:53 12/03/22 18:53 12/03/22 18:53 12/03/22 18:53 12/03/22 18:53 Laboratory Results - last 24 hr 12/03/22 15:32: WBC 12.8 H, RBC 4.62, Hgb 14.2, Hct 43.7, MCV 94.5 H, MCH 30.7, MCHC 32.4, RDW 14.8, Plt Count 240, MPV 8.2, Neut % (Auto) 78.4, Lymph % (Auto) 13.6, [place] % (Auto) 7.1, Eos % (Auto) 0.6, Baso % (Auto) 0.3, Neut # (Auto) 10.1 H, Lymph # (Auto) 1.7, [place] # (Auto) 0.9, Eos # (Auto) 0.1, Baso # (Auto) 0.0, Sodium 128 L, Potassium 4.2, Chloride 92 L, Carbon Dioxide 26, Anion Gap 14.2, BUN 21 H, Creatinine 1.00, Estimated Creat Clear 49, Estimated GFR 71, Est GFR ( Amer) 86, Glucose 131 H, Calcium 9.0, Phosphorus 2.9, Magnesium 1.6, Total Bilirubin 1.5 H, AST 41, ALT 22, Alkaline Phosphatase 70, Troponin I 1.02 H, NT-Pro-B Natriuret Pep 1830 H, Total Protein 7.3, Albumin 4.0, Globulin 3.3 H, Albumin/Globulin Ratio 1.2, Lipase 11 L 12/03/22 16:13: Lactate 1.1 12/03/22 16:43: Urine Color Yellow, Urine Appearance Clear, Urine pH 6.0, Ur Specific [place] <= 1.005, Urine Protein Negative, Urine Glucose (UA) Negative, Urine Ketones Negative, Urine Blood
[2022-12-03 23:08] LABS: Troponin I 1.01 ng/ml (0.00-0.034)
[2022-12-04] VITALS (9 sets, daily range): BP systolic 101–122; BP diastolic 41–55; PULSE 60–80; RESP 16–18; TEMP 36.8–37.3; O2SAT 90–95; BMI 28.5
--- NOTE | 2022-12-04 05:32 | PC.NURSE ---
pt given iv lasix with adequate uop, pt reports abd pain from recent sx. morphine added for pain control, abd distended, firm, positive bowel sounds. pt resting off/on. remains on 2l/nc. pt turned and repositioned for chronic back pain.
[2022-12-04 07:22] LABS: Basophils % 0.3 % (0.1-2.0); Eosinophils # 0.1 K/mm3 (0.0-0.4); Eosinophils % 0.9 % (0.1-12.0); Hematocrit 40.5 % (42.0-52.0); Hemoglobin 13.3 g/dL (14.1-18.0); Lymphocytes # 1.9 K/mm3 (0.7-4.5); Lymphocytes % 18.7 % (10-50); Mean Corpuscular HGB Conc 32.7 g/dL (31.8-35.4); Mean Corpuscular Hemoglobin 30.5 pg (27.0-31.2); Mean Corpuscular Volume 93.1 fl (80-94); Mean Platelet Volume 8.2 fl (7.4-10.4); Monocytes # 0.7 K/mm3 (0.1-1.0); Monocytes % 7.5 % (1.7-9.3); Neutrophils # 7.2 K/mm3 (1.8-7.8); Neutrophils % 72.7 % (37.0-80.0); Platelet Count 207 K/mm3 (142-424); Red Blood Count 4.36 M/mm3 (4.60-6.20); Red Cell Distribution Width 14.7 % (11.5-17.5); White Blood Count 9.9 K/mm3 (4.8-10.8)
[2022-12-04 07:28] LABS: Chloride 98 mmol/L (98-107); Potassium 3.6 mmoL/L (3.5-5.1); Sodium 130 mmol/L (136-145)
[2022-12-04 07:31] LABS: Alanine Aminotransferase 16 U/L (12-78); Albumin Level 3.3 g/dl (3.5-5.0); Albumin/Globulin Ratio 1.2 (1.1-1.8); Alkaline Phosphatase 61 U/L (38-126); Anion Gap 9.6 mEq/L (5-15); Aspartate Amino Transferase 35 U/L (17-59); Blood Urea Nitrogen 18 mg/dl (9-20); Calcium 8.3 mg/dl (8.4-10.2); Carbon Dioxide 26 mmol/L (22.0-30.0); Creatinine Clearance Estimated 54 mL/min (50-200); Estimated Glomerular Filt Rate 92 ml/min (>60); GFR (African American) 111 ML/MIN (>60); Globulin 2.8 g/dL (1.3-3.2); Glucose 108 mg/dl (74-100); Total Protein,Serum 6.1 g/dl (6.3-8.2)
[2022-12-04 07:32] LABS: Magnesium 1.7 mg/dl (1.6-2.3)
--- NOTE | 2022-12-04 10:05 | EXP.ACUTE.PN ---
Subjective *Date: 12/04/22 *Time: 12:20 Interval history: Patient stable on 3 L oxygen this morning. Quite weak, needing 2 person assist to get out of bed. Tolerating p.o. intake. Has not had a bowel movement. Medical Exam Vital signs and Labs for Last 24 Hours: Vital Signs Temp Pulse Pulse Pulse Resp BP BP 12/04/22 07:17 98.6 F 70 16 112/45 L 12/04/22 07:00 12/04/22 05:00 12/04/22 04:00 99.1 F 60 18 101/45 L 12/04/22 03:00 12/04/22 02:46 102/59 L 12/04/22 01:00 12/04/22 00:00 98.4 F 72 18 114/41 L 12/03/22 23:00 12/03/22 21:00 12/03/22 20:00 12/03/22 21:52 67 116/50 L 12/03/22 20:16 73 20 142/64 H 12/03/22 18:47 98.4 F 70 18 133/70 12/03/22 18:53 98.4 F 66 16 123/63 12/03/22 16:00 67 16 110/62 12/03/22 15:30 72 18 134/70 12/03/22 15:22 98.4 F 74 18 110/59 L Pulse Ox O2 Del Method O2 Flow Rate 12/04/22 07:17 90 L Nasal Cannula 2 12/04/22 07:00 Nasal Cannula 2 12/04/22 05:00 Nasal Cannula 2 12/04/22 04:00 92 L 3 12/04/22 03:00 Nasal Cannula 2 12/04/22 02:46 12/04/22 01:00 Nasal Cannula 2 12/04/22 00:00 93 L Nasal Cannula 3 12/03/22 23:00 Nasal Cannula 2 12/03/22 21:00 Nasal Cannula 2 12/03/22 20:00 92 L Nasal Cannula 2 12/03/22 21:52 92 L Nasal Cannula 2 12/03/22 20:16 12/03/22 18:47 Room Air 12/03/22 18:53 96 Nasal Cannula 3 12/03/22 16:00 93 L Nasal Cannula 2 12/03/22 15:30 96 12/03/22 15:22 85 L Room Air Intake and Output 12/03/22 12/04/22 12/04/22 23:59 07:59 15:59 Intake Total 300 / 300 Output Total 800 / 800 400 / 600 200 / 600 Balance -800 / -800 -100 / -300 -200 / -300 Intake: Intake, Oral Amount 300 / 300 Output: Output, Urine Amount 800 / 800 400 / 600 200 / 600 Other: Number of Voids 1 Number of Unmeasured Voids 1 Weight 79.435 kg 70.505 kg Patient Weight 12/04/22 23:59 Weight 70.505 kg Laboratory Results - last 24 hr 12/03/22 15:32: WBC 12.8 H, RBC 4.62, Hgb 14.2, Hct 43.7, MCV 94.5 H, MCH 30.7, MCHC 32.4, RDW 14.8, Plt Count 240, MPV 8.2, Neut % (Auto) 78.4, Lymph % (Auto) 13.6, [place] % (Auto) 7.1, Eos % (Auto) 0.6, Baso % (Auto) 0.3, Neut # (Auto) 10.1 H, Lymph # (Auto) 1.7, [place] # (Auto) 0.9, Eos # (Auto) 0.1, Baso # (Auto) 0.0, Sodium 128 L, Potassium 4.2, Chloride 92 L, Carbon Dioxide 26, Anion Gap 14.2, BUN 21 H, Creatinine 1.00, Estimated Creat Clear 49, Estimated GFR 71, Est GFR ( Amer) 86, Glucose 131 H, Calcium 9.0, Phosphorus 2.9, Magnesium 1.6, Total Bilirubin 1.5 H, AST 41, ALT 22, Alkaline Phosphatase 70, Troponin I 1.02 H, NT-Pro-B Natriuret Pep 1830 H, Total Protein 7.3, Albumin 4.0, Globulin 3.3 H, Albumin/Globulin Ratio 1.2, Lipase 11 L 12/03/22 16:13: Lactate 1.1 12/03/22 16:43: Urine Color Yellow, Urine Appearance Clear, Urine pH 6.0, Ur Specific [place] <= 1.005, Urine Protein Negative, Urine Glucose (UA) Negative, Urine Ketones Negative, Urine Blood Negative, Urine Nitrate Negative, Urine Bilirubin Negative, Urine Urobilinogen 0.2, Ur Leukocyte Esterase Negative, Urine RBC None, Urine WBC Occasional, Ur Squamous Epith Cells Occasional, Urine Bacteria None 12/03/22 17:46: Troponin I 0.99 H 12/03/22 22:00: Troponin I 1.01 H 12/04/22 07:00: WBC 9.9, RBC 4.36 L, Hgb 13.3 L, Hct 40.5 L, MCV 93.1, MCH 30.5, MCHC 32.7, RDW 14.7, Plt Count 207, MPV 8.2, Neut % (Auto) 72.7, Lymph % (Auto) 18.7, Clinton % (Auto) 7.5, Eos % (Auto) 0.9, Baso % (Auto) 0.3, Neut # (Auto) 7.2, Lymph # (Auto) 1.9, [place] # (Auto) 0.7, Eos # (Auto) 0.1, Baso # (Auto) 0.0, Sodium 130 L, Potassium 3.6, Chloride 98, Carbon Dioxide 26, Anion Gap 9.6, BUN 18, Creatinine 0.80, Estimated Creat Clear 54, Estimated GFR 92, Est GFR ( Amer) 111 D, Glucose 108 H, Calcium 8.3 L, Magnesium 1.7, Total Bilirubin 1.0, AST 35, ALT 16 D, Alkaline Phosphatase 61, Total Protein 6.1 L, Albumin 3.3 L D,
--- NOTE | 2022-12-04 10:41 | PC.NURSE ---
pt is a max 2 assist to get up to bedside chair. he is alert and appropriate but has severe weakness in ble. is on oxygen at 3lnc due to low saturation. currently 91% on the 3. bs are good. no nausea. hypotensive. MD notified. stopped antihypertensive meds
--- NOTE | 2022-12-04 10:42 | PC.NURSE ---
family hopes to find placement for pt for a short term stay to get his strength back up. pt seems agreeable
--- NOTE | 2022-12-04 18:53 | PC.NURSE ---
pt tolerated enema well. bs are good. no bm yet
--- NOTE | 2022-12-04 19:15 | PC.NURSE ---
penis and scrotum are edematous. incision is c/d/i bruising noted
[2022-12-05] VITALS (10 sets, daily range): BP systolic 119–134; BP diastolic 45–56; PULSE 62–74; RESP 16–20; TEMP 36.9–37.9; O2SAT 90–97; BMI 28.7
--- NOTE | 2022-12-05 05:50 | PC.NURSE ---
pt had small amt of formed stool from enema, abd cont to be distended but softer and pt passing gas. pt remains on 2l/nc, pt weak, requires assistance x2 for repositioning. vss
[2022-12-05 06:56] LABS: Basophils % 0.2 % (0.1-2.0); Eosinophils # 0.2 K/mm3 (0.0-0.4); Hemoglobin 13.1 g/dL (14.1-18.0); Lymphocytes # 1.7 K/mm3 (0.7-4.5); Lymphocytes % 18.9 % (10-50); Mean Corpuscular HGB Conc 32.7 g/dL (31.8-35.4); Mean Corpuscular Hemoglobin 30.5 pg (27.0-31.2); Mean Corpuscular Volume 93.1 fl (80-94); Mean Platelet Volume 8.4 fl (7.4-10.4); Monocytes # 0.5 K/mm3 (0.1-1.0); Monocytes % 5.8 % (1.7-9.3); Neutrophils # 6.7 K/mm3 (1.8-7.8); Neutrophils % 73.2 % (37.0-80.0); Platelet Count 208 K/mm3 (142-424); Red Cell Distribution Width 14.5 % (11.5-17.5); White Blood Count 9.1 K/mm3 (4.8-10.8)
--- NOTE | 2022-12-05 07:00 | CA_ITS ---
APPROVED REPORT EXAM: Comprehensive 2D, Doppler, and color-flow Echocardiogram Strategy Analyst: Genevieve Romero CRT Ht: 5 ft 1 in Wt: 155lbs BSA: 1.69 BP: 110/62 mmHg Indications: COPD, Shortness of Breath, Hyperlipidemia, Hypertension/HDD, s/p bilateral hernia [id number]. all images obtained with pt flat on back due to recent surgery 2D Dimensions LVOT 2.01 cm (M/F) 1.5-2.5 LA Volume 47.20 mL LA Volume Index 27.10 mL/m2 (M/F) 16-34 M-Mode Dimensions RVDd 4.00 cm (0.9-2.6) LA Diam 3.62 cm (1.9-4.0) LVDd 5.07 cm (3.5-5.7) Ao Diam 4.30 cm (2.0-3.7) LVDs 2.64 cm (3.5-5.7) IVSd 1.32 cm (0.6-1.1) PWd 0.89 cm (0.6-1.1) EF (Teich) 79.00% FS 47.90% EDV (Teich) 122.10 mL TAPSE 1.56 (<1.7) ESV (Teich) 25.60 mL LV Diastology E Decel Time 203.00 (160-240 msec) E/A Ratio 0.87 MED E' 4.70 (< 7 cm/sec) MED A' 9.10 cm/s E'/MED E' Ratio 17.81 (>14) LAT E' 12.90 (<10 cm/sec) LAT A' 8.30 cm/s E/LAT E' Ratio 6.49 (>14) Aortic Valve AO Peak GR. 6.70 mmHg Mitral Valve MV E Max Abhilash. 84.00 (40-130 cm/s) MV A Velocity 96.00 (40-130 cm/s) E/A Ratio 0.87 MV Decel. Time 203.00 (160-240 ms) MV PHT 60.00 ms Pulmonary Valve PV Peak Velocity 205.00 (50-150 cm/s) Tricuspid Valve TR P. Velocity 307.00 cm/s RAP Estimate 10.00 mmHg RVSP 47.70 mmHg Left Ventricle The left ventricle is normal size. The left ventricular systolic function is normal. The left ventricular ejection fraction is within the normal range. There is normal left ventricular wall thickness. There is normal LV segmental wall motion. The left ventricular diastolic function is normal. LVEF is 55%. Right Ventricle Right ventricle is moderately dilated. Right ventricle is mildly hypokinetic. Atria The left atrium size is normal. The right atrium size is normal. Aortic Valve The aortic valve is mildly thickened. There is no aortic valvular stenosis. No aortic regurgitation is present. Mitral Valve The mitral valve is normal in structure. No evidence of mitral valve stenosis. Mitral regurgitation. Tricuspid Valve The tricuspid valve leaflets are thin and pliable. Tricuspid regurgitation. RVSP is 40-45 mmHg. Pulmonic Valve The pulmonary valve is normal in structure. Mild pulmonic regurgitation. Great Vessels The aortic root is normal in size. The ascending aorta is not well visualized. The IVC is not well visualized. Pericardium There is no pericardial effusion. Other Information Study Quality: Technically Difficult Conclusion This was a technically difficult study due to inability to position patient due to recent surgery. Normal LV systolic function. Moderately dilated RV with mild reduction in RV function. Mild MR, TR, and PI. Electronically signed by : Francine Qiu MD 12/05/2022 09:44:31
[2022-12-05 07:03] LABS: Chloride 97 mmol/L (98-107); Potassium 3.8 mmoL/L (3.5-5.1); Sodium 132 mmol/L (136-145)
[2022-12-05 07:05] LABS: Blood Urea Nitrogen 20 mg/dl (9-20); Creatinine Clearance Estimated 54 mL/min (50-200); Estimated Glomerular Filt Rate 92 ml/min (>60); GFR (African American) 111 ML/MIN (>60)
[2022-12-05 07:06] LABS: Alanine Aminotransferase 19 U/L (12-78); Albumin Level 3.5 g/dl (3.5-5.0); Albumin/Globulin Ratio 1.3 (1.1-1.8); Alkaline Phosphatase 64 U/L (38-126); Anion Gap 11.8 mEq/L (5-15); Aspartate Amino Transferase 35 U/L (17-59); Bilirubin,Total 1.4 mg/dl (0.2-1.3); Calcium 8.6 mg/dl (8.4-10.2); Carbon Dioxide 27 mmol/L (22.0-30.0); Globulin 2.8 g/dL (1.3-3.2); Glucose 111 mg/dl (74-100); Magnesium 1.6 mg/dl (1.6-2.3); Total Protein,Serum 6.3 g/dl (6.3-8.2)
[2022-12-05 07:14] LABS: NT Pro Brain Natriuretic Pep. 793 pg/mL (0-450)
--- NOTE | 2022-12-05 09:54 | HMH.OTEV ---
OT Inpatient Evaluation Rehab OT IP Evaluation Start: 12/04/22 08:40 Freq: ONCE Status: Active Protocol: Document 12/05/22 09:45 RUBYSUNNY (Rec: 12/05/22 09:53 RUBYSUNNY [id number]) Rehab OT IP Assessment Subjective History This is an 87-year-old male with PMHx of coronary artery disease status post 5 vessel CABG, HLD, with recent bilateral inguinal hernia repair, brought in by EMS with abdominal pain and dyspnea on excerption. Spouse called after referred increased weakness and sob. He has lower extremity edema which is at his baseline. No asymmetry to that. No fevers chills or cough. No hemoptysis. No history of pulmonary realism. He is on aspirin and Plavix and was continued on this even during surgery. Admitted for management and treatment. Patient lives at home with . Ambulates with rollator. Independent with transfers and ADLs except for bathing. assist with bathing. Subjective I need help to get up. Instructed Patient on proper hand and foot placement to complete supine->sit @ EOB requiring Max A x2. Once at EOB, Patient was able to sit up with SBA for safety. Instructed Patient on sit-> stand transfer with RW with Mod A x2. Patient ambulated ~ 20ft with usage of RW with Min A for safety. Assisted patient back to bed with needs met. Objective Patient Orientation Person,Place,Name,Age Upper Extremity Gross ROM WFL Bed Mobility bed mobility - supine/sit Assist Level Maximum x 2 (75% assist) Transfer Training Sit/Stand/Pivot Transfer Assist Level Moderate x 2 (50% assist) Chair Transfer Ability Moderate x 2 (50% assist) Chair Transfer Technique Sit to/from Ambulatory Chair
--- NOTE | 2022-12-05 10:11 | HMH.PTEV ---
Physical Therapy Evaluation Rehab PT IP Evaluation Start: 12/04/22 08:40 Freq: ONCE Status: Active Protocol: Document 12/05/22 10:06 GRETTA (Rec: 12/05/22 10:11 PHOANASTASIA [id number]) Subjective/History History History 87 yowm adm to [facility] with resp failure and hyponatremia. PMH of CAD with CABG x 5v, HLD, HTN, recent B inguinal hernia repair. He reports he lives with his , 3 steps to enter the home, he uses a RW for ambulation at baseline. His assists him with all ADLs except dressing at baseline. Subjective Subjective Pt c/o general weakness and B inguinal pain after surgery. New diagnosis of cancer in past 12 No months? Rehab PT IP Eval Objective Appearance Patient Behavior Appropriate Patient Orientation Person,Place,Time Difficulty following instructions none Speech Pattern Clear Ambulation Patient Able to Ambulate Yes Ambulation Observation IP General Gait Pattern Observation Wide Based Gait,Shuffling Step Ambulation Distance (feet) 10 Ambulation Assistive Device Rolling Walker Ambulation Ability Contact Guard/Hand Hold Balance Ability to Arise Unable Sitting Balance Leans or slides in chair Standing Balance Steady, wide stance Dynamic Sitting Balance Ability Fair Dynamic Standing Balance Ability Fair Transfers Bed Transfer Ability Moderate x 2 (50% assist) Chair Transfer Ability Minimal x 1 (25% assist) Sit to Stand Bed Transfer Ability Minimal x 1 (25% assist) Sit to Stand Chair Transfer Ability Minimal x 1 (25% assist) Rehab PT IP prob,goals,plan Problems Date of Evaluation: 12/05/22 PT IP Problems Bed Mobility,Transfers,Gait, Self care Rehab Potential Rehab Potential Good Plan PT Intervention Plan Bed Mobility,Transfers,Gait, Self care,Therapeutic Exercise PT Plan Frequency Daily Duration LOS Discharge Goals Bed Transfer Ability Minimal x 2 (25% assist) Sit to Stand Chair Transfer Ability Contact Guard/Hand Hold Ambulation Assistive Device Rolling Walker Ambulation Distance (feet) 25 Discharge Plan PT Discharge Plan Pt is currently most appropriate for rehab placement once medically
--- NOTE | 2022-12-05 10:23 | EXP.ACUTE.PN ---
Subjective *Date: 12/05/22 *Time: 11:32 Interval history: Patient feeling somewhat better this morning. Still short of breath and requiring oxygen. On 2 L on morning rounds. Requiring assistance to get up out of bed, PT working with patient on rounds. Diuresing well, -1.5 L for admission. Had 3 small bowel movements overnight. Feeling some better as far as his belly. Denied chest pain, nausea, vomiting. Has pain at incision sites of abdomen. Medical Exam Vital signs and Labs for Last 24 Hours: Vital Signs Temp Pulse Pulse Resp BP Pulse Ox O2 Del Method 12/05/22 08:00 94 L Nasal Cannula 12/05/22 09:00 Nasal Cannula 12/05/22 07:11 98.5 F 68 18 119/56 L 90 L Nasal Cannula 12/05/22 07:00 Nasal Cannula 12/05/22 05:00 Nasal Cannula 12/05/22 04:00 99.6 F 65 20 125/52 L 97 12/05/22 03:00 Nasal Cannula 12/05/22 01:00 Nasal Cannula 12/04/22 23:00 Nasal Cannula 12/05/22 00:00 99.2 F 68 20 124/55 L 95 Nasal Cannula 12/04/22 21:00 Nasal Cannula 12/04/22 20:00 Nasal Cannula 12/04/22 20:00 98.3 F 65 16 121/51 L 93 L Nasal Cannula 12/04/22 17:00 Nasal Cannula 12/04/22 15:43 98.2 F 67 16 101/50 L 94 L Nasal Cannula 12/04/22 15:00 Nasal Cannula 12/04/22 13:00 Nasal Cannula 12/04/22 11:39 98.2 F 80 17 111/54 L 95 Nasal Cannula 12/04/22 11:00 Nasal Cannula 12/04/22 11:29 77 122/55 L O2 Flow Rate 12/05/22 08:00 2 12/05/22 09:00 2 12/05/22 07:11 2.5 12/05/22 07:00 2 12/05/22 05:00 2 12/05/22 04:00 12/05/22 03:00 2 12/05/22 01:00 2 12/04/22 23:00 2 12/05/22 00:00 12/04/22 21:00 2 12/04/22 20:00 2 12/04/22 20:00 12/04/22 17:00 2 12/04/22 15:43 2 12/04/22 15:00 12/04/22 13:00 2 12/04/22 11:39 3 12/04/22 11:00 3 12/04/22 11:29 Intake and Output 12/04/22 12/05/22 12/05/22 23:59 07:59 15:59 Intake Total 120 / 690 Output Total 350 / 1450 Balance -230 / -760 Intake: Intake, Oral Amount 120 / 690 Output: Output, Urine Amount 350 / 1450 Other: Number of Bowel Movements 1 Weight 70.789 kg 70.78 kg Patient Weight 12/05/22 23:59 Weight 70.78 kg Laboratory Results - last 24 hr 12/05/22 06:41: WBC 9.1, RBC 4.30 L, Hgb 13.1 L, Hct 40.0 L, MCV 93.1, MCH 30.5, MCHC 32.7, RDW 14.5, Plt Count 208, MPV 8.4, Neut % (Auto) 73.2, Lymph % (Auto) 18.9, [place]ett % (Auto) 5.8, Eos % (Auto) 2.0, Baso % (Auto) 0.2, Neut # (Auto) 6.7, Lymph # (Auto) 1.7, [place]ett # (Auto) 0.5, Eos # (Auto) 0.2, Baso # (Auto) 0.0, Sodium 132 L, Potassium 3.8, Chloride 97 L, Carbon Dioxide 27, Anion Gap 11.8, BUN 20, Creatinine 0.80, Estimated Creat Clear 54, Estimated GFR 92, Est GFR ( Amer) 111, Glucose 111 H, Calcium 8.6, Magnesium 1.6, Total Bilirubin 1.4 H, AST 35, ALT 19, Alkaline Phosphatase 64, NT-Pro-B Natriuret Pep 793 H, Total Protein 6.3, Albumin 3.5, Globulin 2.8, Albumin/Globulin Ratio 1.3 I & O for Labs for Last 24 Hours: Intake & Output 12/02/22 12/03/22 12/04/22 12/05/22 23:59 23:59 23:59 23:59 Intake Total 690 / 690 Output Total 800 / 800 1450 / 1450 Balance -800 / -800 -760 / -760 Weight 79.435 kg 70.505 kg 70.78 kg Constitutional: Present no acute distress, average body habitus and chronically ill appearing Head: Present atraumatic and normocephalic ENT: Present normal exam Neck: Present normal inspection Respiratory: Present wheezes, crackles (bases) and normal respiratory effort; Absent accessory muscle use or rhonchi Cardiac: Present Reg Rate and Rhythm and No Murmur GI: Present soft, distention (Mild distention from yesterday somewhat improved.), tenderness (Over lower abdominal incisions from surgery last week.) and normal bowel sounds Rectal (male): Present deferred Extremities: Present normal inspection, full ROM and edema (2+ in ankles) Skin: Present intact; Absent erythema Neuro: Present Grossly Intact, alert, sophie
--- NOTE | 2022-12-05 10:42 | SW/DCPLANNER ---
Addendum entered by Alanis Barrientos 12/06/22 10:00: The plan for this patient is to discharge to [facility] level of care today. Per Luz Gonzales they will provide portable O2 tank for transportation to facility. Addendum entered by Alanis Barrientos 12/05/22 15:24: Luz Gonzales stated that she can accept this patient tomorrow. Addendum entered by Alanis Barrientos 12/05/22 12:42: Luz Gonzales will evaluate patient onsite this afternoon. Original Note: I spoke w/ this patient, his and daughter regarding plans once medically stable for discharge. Patient resides at home w/ his and was doing well at home prior to recent surgery. PT/OT evaluated patient this AM and recommended SNF level of care prior to discharge. Patient and his are interested in [facility] level of care once medically stable for discharge. I have faxed patient information to Luz Gonzales. Patient could be ready for discharge tomorrow. I will continue to follow up w/ patient and his , and Luz Gonzales.
--- NOTE | 2022-12-05 19:59 | XR_ITS ---
PROCEDURE INFORMATION: Exam: XR Chest Exam date and time: 12/05/2022 8:15 PM Age: 87 years old Clinical indication: Shortness of breath; Additional info: Increased SOB TECHNIQUE: Imaging protocol: Radiologic exam of the chest. Views: 1 view. Total images: 1 COMPARISON: CT ANGIO CHEST PE PROTOCOL 12/03/2022 4:28 PM FINDINGS: Lungs: Poor lung expansion. Moderate upper lobe centrilobular emphysema. Mild bibasilar atelectasis and/or infiltrate. No overt pulmonary vascular congestion. Pleural spaces: Left greater than right apical pleural thickening/scarring and calcification. No pleural effusion or pneumothorax. Heart/Mediastinum: Mild cardiomegaly. No mediastinal widening or hilar enlargement. Arterial stents within 1 of the great vessels. Bones/joints: Status post median sternotomy. Status post median sternotomy. Status post vertebroplasty L1. Osteopenia. Partially visualized mild degenerative changes thoracic spine and right shoulder/AC joint. IMPRESSION: 1. Mild bibasilar atelectasis versus infiltrate, similar to recent chest CT. 2. Moderate upper lobe emphysema. 3. Stable mild cardiomegaly without vascular congestion.
[2022-12-05 22:08] LABS: Adenovirus,PCR Not Detected (NotDetected); Coronavirus 19, PCR Not Detected (NotDetected); Coronavirus 229E Not Detected (NotDetected); Coronavirus NL63 Not Detected (NotDetected); Coronavirus OC43 Not Detected (NotDetected); Coronovirus HKU1,PCR Not Detected (NotDetected); Human Metapneumovirus Not Detected (NotDetected); Influenza A, PCR Not Detected (NotDetected); Influenza AH1, 2009 Not Detected (NotDetected); Influenza AH1, PCR Not Detected (NotDetected); Influenza AH3,PCR Not Detected (NotDetected); Influenza B, PCR Not Detected (NotDetected); Parainfluenza 1, PCR Not Detected (NotDetected); Parainfluenza 2, PCR Not Detected (NotDetected); Parainfluenza 3, PCR Not Detected (NotDetected); Parainfluenza 4, PCR Not Detected (NotDetected); Respiratory Syncytial Virus Not Detected (NotDetected); Rhinovirus/Enterovirus Not Detected (NotDetected)
[2022-12-06 04:00] VITALS: BP 127/54; PULSE 56; RESP 16; TEMP 36.9; O2SAT 93; BMI 28.3
--- NOTE | 2022-12-06 04:38 | PC.NURSE ---
pt had a low grade fever of 100.3, pt reports feeling fatigued and having new productive cough. ua, chest x-ray and covid resp panel done. fever came down without intervention. bp and hr wnl. pt remains on 2l/nc
[2022-12-06 06:27] VITALS: O2SAT 95
[2022-12-06 06:37] LABS: Eosinophils # 0.2 K/mm3 (0.0-0.4); Eosinophils % 2.2 % (0.1-12.0); Hematocrit 40.5 % (42.0-52.0); Hemoglobin 13.1 g/dL (14.1-18.0); Lymphocytes # 1.5 K/mm3 (0.7-4.5); Mean Corpuscular HGB Conc 32.4 g/dL (31.8-35.4); Mean Corpuscular Hemoglobin 30.6 pg (27.0-31.2); Mean Corpuscular Volume 94.6 fl (80-94); Mean Platelet Volume 8.5 fl (7.4-10.4); Monocytes # 0.5 K/mm3 (0.1-1.0); Neutrophils # 4.8 K/mm3 (1.8-7.8); Neutrophils % 68.8 % (37.0-80.0); Platelet Count 232 K/mm3 (142-424); Red Blood Count 4.28 M/mm3 (4.60-6.20); Red Cell Distribution Width 14.6 % (11.5-17.5); White Blood Count 6.9 K/mm3 (4.8-10.8)
[2022-12-06 06:44] LABS: Chloride 98 mmol/L (98-107); Potassium 3.5 mmoL/L (3.5-5.1); Sodium 132 mmol/L (136-145)
[2022-12-06 06:46] LABS: Blood Urea Nitrogen 19 mg/dl (9-20); Creatinine Clearance Estimated 53 mL/min (50-200); Estimated Glomerular Filt Rate 92 ml/min (>60); GFR (African American) 111 ML/MIN (>60)
[2022-12-06 06:47] LABS: Alanine Aminotransferase 22 U/L (12-78); Albumin Level 3.3 g/dl (3.5-5.0); Albumin/Globulin Ratio 1.1 (1.1-1.8); Alkaline Phosphatase 70 U/L (38-126); Anion Gap 8.5 mEq/L (5-15); Aspartate Amino Transferase 35 U/L (17-59); Bilirubin,Total 1.1 mg/dl (0.2-1.3); Calcium 8.5 mg/dl (8.4-10.2); Carbon Dioxide 29 mmol/L (22.0-30.0); Globulin 2.9 g/dL (1.3-3.2); Glucose 106 mg/dl (74-100); Total Protein,Serum 6.2 g/dl (6.3-8.2)
[2022-12-06 07:16] LABS: Magnesium 1.7 mg/dl (1.6-2.3)
[2022-12-06 07:26] VITALS: BP 139/51; PULSE 75; RESP 17; TEMP 36.8; O2SAT 92
[2022-12-06 08:00] VITALS: O2SAT 95
--- NOTE | 2022-12-06 10:40 | EXP.DC.SUM ---
General Admission date:: 12/03/22 Discharge date: 12/06/22 HPI HPI HPI: This is an 87-year-old male with PMHx of coronary artery disease status post 5 vessel CABG, HLD, with recent bilateral inguinal hernia repair, brought in by EMS with abdominal pain and dyspnea on excerption. Spouse called after referred increased weakness and sob. He has lower extremity edema which is at his baseline. No asymmetry to that. No fevers chills or cough. No hemoptysis. No history of pulmonary realism. He is on aspirin and Plavix and was continued on this even during surgery. Admitted for management and treatment. Hospital Course Hospital Course Hospital Course: The patient was admitted to the telemetry unit. Continuous pulse oximetry was provided and the patient maintained appropriate oxygen saturations on 2 L of oxygen via nasal cannula. He reported no home O2. An echocardiogram identified an ejection fraction of 55%. His imaging was concerning for COPD, cardiomegaly, previous CABG and lumbar compression fractures. A CTA of the chest identified a left subclavian arterial stent and COPD. His respiratory PCR panel came back negative. His laboratory studies and inflammatory markers were trended. The patient identified improvement and inquired about transition of care. His remained at bedside and she requested transition to [facility] facility. Case management assisted in identifying [place] for next site of care. I spent 35 minutes in [id number] time with the patient and nursing staff concerning the discharge process. We discussed the admitting diagnoses and hospital course. We discussed identified improvement and the patient's desire to be discharged. We reviewed inpatient studies and imaging. The patient voiced understanding on the importance of follow-up with his primary care provider and specialist(s). The patient plans to be compliant with the medication regimen prescribed and follow-up appointments. His care will be transition to [facility] nursing [facility]. Exam Data for Last 24 hours Vital signs and Labs for Last 24 Hours: Temp Pulse Resp BP Pulse Ox O2 Del Method O2 Flow Rate 98.2 F 75 17 139/51 L 95 Nasal Cannula 2 12/06/22 07:26 12/06/22 07:26 12/06/22 07:26 12/06/22 07:26 12/06/22 08:00 12/06/22 09:59 12/06/22 09:59 Laboratory Results - last 24 hr 12/05/22 22:00: Chlamy pneumoniae PCR TNP, Adenovirus (PCR) Not detected, B. pertussis DNA (PCR) TNP, Coronavirus OC43 (PCR) Not detected, Coronavirus HKU1 (PCR) Not detected, Coronavirus 229E (PCR) Not detected, SARS-CoV-2 (PCR) Not detected, Coronavirus NL63 (PCR) Not detected, Human Metapneumovir PCR Not detected, Influenza A (H1) PCR Not detected, Influ A (H1N1/09) PCR Not detected, Influenza A (H3) PCR Not detected, Influenza Type A (PCR) Not detected, Influenza Type B (PCR) Not detected, M. pneumoniae (PCR) TNP, Parainfluenza 1 (PCR) Not detected, Parainfluenza 2 (PCR) Not detected, Parainfluenza 3 (PCR) Not detected, Parainfluenza 4 (PCR) Not detected, RSV (PCR) Not detected, Entero/Rhino (PCR) Not detected 12/06/22 05:30: WBC 6.9, RBC 4.28 L, Hgb 13.1 L, Hct 40.5 L, MCV 94.6 H, MCH 30.6, MCHC 32.4, RDW 14.6, Plt Count 232, MPV 8.5, Neut % (Auto) 68.8, Lymph % (Auto) 22.0, Mclennan % (Auto) 7.0, Eos % (Auto) 2.2, Baso % (Auto) 0.0 L, Neut # (Auto) 4.8, Lymph # (Auto) 1.5, Mclennan # (Auto) 0.5, Eos # (Auto) 0.2, Baso # (Auto) 0.0, Sodium 132 L, Potassium 3.5, Chloride 98, Carbon Dioxide 29, Anion Gap 8.5, BUN 19, Creatinine 0.80, Estimated Creat Clear 53, Estimated GFR 92, Est GFR ( Amer) 111, Glucose 106 H, Calcium 8.5, Magnesium 1.7, Total Bilirubin 1.1, AST 35, ALT 22, Alkaline Phosphatase 70, Total Protein 6.2 L, Albumin 3.3 L, Globulin 2.9, Albumin/Globulin Ratio 1.1 I & O for Last 24 hours: Intake & Output 12/03/22 12/04/22 12/05/22 12/06/22 23:59 23:59 23:59 23:59 Intake Total 690 / 690 360 / 360 540 / 540 Output Total 800 / 800
[2022-12-06 11:58] VITALS: BP 139/56; PULSE 64; RESP 16; TEMP 36.6; O2SAT 93
--- NOTE | 2022-12-06 12:48 | PC.NURSE ---
Report called to Mike Gonzales and given to MARQUISE.
== END 2022-12-06 13:21 | DRG 291 ==
LOC: ER 15:56 → 2ND 18:33
PROVIDERS: Nurse Practitioner Family; Admitting Provider Internal Medicine Adolescent Medicine; Emergency Provider Student in an Organized Health Care Education/Training Program; PCP Family Medicine; Visit Provider Internal Medicine Adolescent Medicine
DX: I11.0 Hypertensive heart disease with heart failure (principal); J96.01 Acute respiratory failure with hypoxia; E87.1 Hypo-osmolality and hyponatremia; J98.11 Atelectasis; T79.7XXA Traumatic subcutaneous emphysema, initial encounter; I50.9 Heart failure, unspecified; I5A Non-ischemic myocardial injury (non-traumatic); J43.8 Other emphysema; I25.10 Atherosclerotic heart disease of native coronary artery without angina pectoris; Z95.1 Presence of aortocoronary bypass graft; Z86.73 Personal history of transient ischemic attack (TIA), and cerebral infarction without residual deficits; I25.2 Old myocardial infarction; X58.XXXA Exposure to other specified factors, initial encounter
CPT/HCPCS: 36415; 71045; 71275; 74177; 80053; 81001; 83605; 83690; 83735; 83880; 84100; 84484; 85025; 87040; 87086; 87581; 87632; 87635; 87798; 93005; 93306; 94640; 97110; 97163; 97165; 97530; 99291; Q9967

== ENCOUNTER 2023-05-29 07:37 | Emergency (ER) | payer MEDICARE, BC, SELFPAY ==
[2023-05-29] VITALS (7 sets, daily range): BP systolic 113–140; BP diastolic 50–66; PULSE 71–92; RESP 16–18; TEMP 36.7; O2SAT 92–98; BMI 25.0
--- NOTE | 2023-05-29 07:52 | XR_ITS ---
FINAL REPORT CLINICAL HISTORY: weakness, soa COMPARISON: 12/05/2022 FINDINGS: A single portable view of the chest was obtained. The patient has undergone a prior midline sternotomy. The heart size and pulmonary vascularity are within normal limits. The mediastinum is within normal limits. There is moderate interstitial fibrosis/scarring present. No acute pulmonary abnormality is identified. The bony thorax is intact. IMPRESSION: Moderate changes of interstitial fibrosis/scarring, stable since the prior chest x-ray. Reviewed, Interpreted and Dictated by Keanu Cho III, MD Transcribed by Hayde Tavares Authenticated and [facility]
--- NOTE | 2023-05-29 07:52 | CT_ITS ---
FINAL REPORT TECHNIQUE: Pre-and postcontrast images of the abdomen were performed by computed tomography. Extensive 3-D reconstruction images were performed. A CTA was performed. This study was performed with techniques to keep radiation doses as low as reasonably achievable (ALARA). Individualized dose reduction techniques using automated exposure control or adjustment of mA and/or kV according to the patient's size were employed. CLINICAL HISTORY: BRBPR, weakness COMPARISON: 12/05/2022, 11/04/2022 FINDINGS: ABDOMEN AND PELVIS: Mild changes of emphysema are present as well as mild scarring at the lung bases. Precontrast images demonstrate no evidence of nephrolithiasis. No adrenal masses are identified. The liver, spleen and pancreas are unremarkable. There is mild gallbladder wall thickening which is nonspecific. There is wall thickening of the splenic flexure, descending colon, and sigmoid colon consistent with colitis. 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 Diffuse vascular calcification is noted in the abdominal vessels. 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 The SMA, and BARRIE are patent without significant stenosis. There is no significant stenosis or calcification. There is calcified plaque in the proximal renal arteries bilaterally with probable mild stenosis, which is stable since the prior CTA. On the left side, there is reconstitution at the level of the external iliac artery. On the right side there is reconstitution via collaterals of the right common femoral artery. 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 These are stable since the prior exam. 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 On the left side there is reconstitution at the level of the external iliac artery, and on the right side there is reconstitution at the level of the common femoral artery. There is wall thickening of the splenic flexure, descending colon and sigmoid colon consistent with colitis. This is new since the prior CT. There is mild gallbladder wall thickening, nonspecific. 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 Dense calcification with patency of the SMA, BARRIE, and bilateral renal arteries. Reviewed, Interpreted and Dictated by Keanu Cho III, MD Transcribed by Hayde Tavares Authenticated and [facility]
--- NOTE | 2023-05-29 08:01 | HMH.EDGENADL ---
Discharge Plan Disposition Patient Disposition: Home, Self-Care Condition: Good Prescriptions Prescriptions: No Action clopidogrel 75 mg tablet 75 mg PO DAILY oxycodone-acetaminophen 5-325 mg tablet 5 tab PO Q6HP PRN (Reason: Pain (Scale Score 4-6)) Rx Instructions: tab simvastatin 20 mg tablet 20 mg PO DAILY amlodipine-benazepril 10-20 mg capsule 1 cap PO DAILY aspirin 81 mg Tablet,Chewable 81 mg PO DAILY nitroglycerin 0.4 mg Tablet, Sublingual 0.4 mg SUBLINGUAL Q5M PRN (Reason: Chest Pain) Rx Instructions: do not exceed 3 doses per episode docusate sodium 100 mg Capsule 100 mg PO BID bisacodyl 5 mg Tablet,Delayed Release (Dr/Ec) 10 mg PO DAILY bumetanide 1 mg Tablet 0.5 mg PO DAILY Qty: 30 0RF Trelegy Ellipta 100-62.5-25 mcg Blister With Device 1 inh inhalation DAILY Qty: 60 0RF ipratropium-albuterol 0.5 mg-3 mg(2.5 mg base)/3 mL Solution For Nebulization 3 ml inhalation Q6HP PRN (Reason: Shortness Of Breath) Qty: 120 0RF magnesium oxide 400 mg (241.3 mg magnesium) Tablet 400 mg PO BID Qty: 60 0RF Referrals Follow up/Referrals: Janis Sparks MD [Primary Care Provider] - See instructions Clayton Moe MD [Staff Physician] - See instructions Activity Restrictions/Add. Instructions Additional Instructions/Restrictions: Call Dr. Moe's office to follow-up colonoscopy. Call your family doctor to establish care for this visit to the emergency department and schedule follow-up within 48 hours to ensure improvement. If you have any worsening of your condition or any other concerning signs or symptoms, return to the emergency department or your primary care doctor for further evaluation. Due to blood vessels being narrowing your abdomen, talk your family doctor about scheduling follow-up with vascular (blood vessel) doctor in [place] to further evaluate your symptoms. You will be contacted if diarrhea results positive. Clinical Impressions Clinical Impression: Bloody stool, Abdominal cramping Instructions Patient Instructions: DI for Diarrhea and Traveler's Diarrhea -- Adult, DI for Diarrhea and Traveler's Diarrhea -- Child, DI for Nausea -- Adult, DI for Nausea -- Child Discharge ED Provider: Jarrod Keita General Adult HPI General Chief complaint: Nausea/Vomiting/Diarrhea Stated complaint: bloody diarrhea Time Seen by Provider: 05/29/23 07:39 Mode of Arrival: Wheelchair Source of Information: Patient Limitations: No Limitations Description of Symptoms (Recalled from ER Triage Doc. by RN): pt reports bloody diarrhea that started in the middle of the night last night, has had 2 episodes this am, states he has been constipated for a few days and took miralax last night and has had diarrhea since then, he takes miralax regularly for constipation and has never had this issue before, also reports LLQ abd pain that is intermittent and explains it as a dull cramp History of Present Illness HPI narrative: 87-year-old male history of hypertension, hyperlipidemia, CAD, [place] status post 5 vessel CABG currently on aspirin and Plavix, CHF, COPD (?, Not formally diagnosed) presenting with bright red blood per rectum. Patient states that he has been constipated recently. Sat on the toilet for 3 hours overnight, 05/27 to 05/28 and passed large, hard bowel movement. Shortly afterward, got lower abdominal cramping and had bright red blood per rectum. Had 2 separate episodes of mostly bright red stool, so came to the emergency permit for further evaluation. Abdominal cramping is left sided, does not radiate, made better with bowel movement. Associated symptoms include generalized weakness. Denies chest pain, shortness of breath, nausea or vomiting, flank pain, urinary symptoms, syncope, or any other concerns. Has had 1 episode of bright red blood per rectum in the past, self remitted without intervention. Please note that above description of symptoms, in this electronic medical record under categorization of recalled from ER triage doctor by RN are reflective of an initial nursing assessment, however, is not reflective of my full history and physical exam that was personally taken and clarified. Consequentially, this preceding description of symptoms, which may include the patient's categorized chief complaint in the EMR, do not reflect my personal clinical impression, and the ultimate description of history of present illness and patient stated complaints should be deferred to this section of the note. Unless stated otherwise or congruent with this section of the note, additional signs, symptoms, or incongruence should be interpreted as inaccurate with my clinical impression. Related Data Home Medications Medication Instructions Recorded Confirmed amlodipine 10 mg-benazepril 20 mg 1 cap PO DAILY 12/03/22 05/29/23 capsule aspirin 81 mg chewable tablet 81 mg PO DAILY Blood Thinner 12/03/22 05/29/23 bisacodyl 5 mg tablet,delayed 10 mg PO DAILY Constipation 12/03/22 05/29/23 release clopidogrel 75 mg tablet 75 mg PO DAILY Blood Thinner 12/03/22 05/29/23 docusate sodium 100 mg capsule 100 mg PO BID Constipation 12/03/22 05/29/23 nitroglycerin 0.4 mg sublingual 0.4 mg sublingual Q5M PRN Chest 12/03/22 05/29/23 tablet Pain oxycodone-acetaminophen 5 mg-325 5 tab PO Q6HP PRN Pain (Scale 12/03/22 05/29/23 mg tablet Score 4-6) simvastatin 20 mg tablet 20 mg PO DAILY Cholesterol 12/03/22 05/29/23 Previous Rx's Medication Instructions Recorded bumetanide 1 mg tablet 0.5 mg (1/2 x 1 mg) PO DAILY #30 12/06/22 tabs fluticasone fur. 100 mcg-umeclid 1 inh inhalation DAILY #60 ea 12/06/22 62.5 mcg-vilant 25 mcg inhalat.powder (Trelegy Ellipta) ipratropium 0.5 mg-albuterol 3 mg 3 ml inhalation Q6HP PRN Shortness 12/06/22 (2.5 mg base)/3 mL nebulization Of Breath #120 mL soln magnesium oxide 400 mg (241.3 mg 400 mg PO BID #60 tabs 12/06/22 magnesium) tablet Allergies Allergy/AdvReac Type Severity Reaction Status Date / Time No Known Allergies Allergy Verified 05/29/23 09:02 [facility] Disclaimer: The information contained in this section may have been updated after the patient was seen, as this information can be updated by other users. Medical History (Updated 05/29/23 @ 11:34 by Jarrod Keita MD) Macular degeneration CVA (cerebral vascular accident) Myocardial infarction Hyperlipidemia Hypertension Hernia Surgical History (Updated 12/10/22 @ 00:00 by Solomon Dewey) Hx of kyphoplasty History of cardiac cath Hx of CABG History of carotid endarterectomy History of appendectomy Social History (Updated 11/24/22 @ 14:51 by Lety Coburn DO) Smoking Status: Never smoker alcohol intake: never current occupational status: retired Travel in the last 8 weeks: None ROS Obtained: Yes All systems reviewed & no additional complaints except as documented Physical Exam General General appearance: alert and in no apparent distress Head Head exam: atraumatic and normocephalic Eye Eye exam: Present normal appearance, PERRL and EOMI ENT ENT exam: Present mucous membranes moist Neck Neck exam: Present normal inspection, full ROM and trachea midline Respiratory Respiratory exam: Absent respiratory distress, wheezes, stridor, accessory muscle use or prolonged expiratory phase Cardiovascular Cardiovascular exam: Present regular rate, normal rhythm and systolic murmur Abdominal Exam Abdominal exam: Present soft and distention; Absent tenderness, guarding, rebound or rigidity Extremities Exam Extremities exam: Present edema Neurological Exam Neurological exam: Present alert, oriented X3, CN II-XII intact and normal gait; Absent motor sensory deficit Skin Skin exam: Present warm and dry; Absent diaphoresis or erythema Medical Decision Making Medical Records Medical records reviewed: Yes I reviewed the patient's medical records. Jaden Inquiry Pt receiving controlled substance: No Jaden was queried for this patient: No Vital Signs: 05/29/23 07:38 05/29/23 08:30 05/29/23 09:00 Temperature 98.1 F Temperature Source Oral Pulse Rate 76 81 Pulse Rate [Left Radial] 92 H Respiratory Rate 16 18 Blood Pressure 119/52 L 133/54 L Blood Pressure [Right Arm] 113/66 Blood Pressure Mean 84 Blood Pressure Mean [Right Arm] 81 Blood Pressure Source Blood Pressure Source [Right Arm] Automatic Cuff Blood Pressure Position Blood Pressure Position [Right Arm] Sitting 02 Sat by Pulse Oximetry 94 L 92 L 97 Oxygen Delivery Method Room Air Room Air 05/29/23 09:30 05/29/23 10:15 05/29/23 10:30 Temperature Temperature Source Pulse Rate 76 71 Pulse Rate [Left Radial] Respiratory Rate Blood Pressure 126/50 L 133/55 L 137/54 L Blood Pressure [Right Arm] Blood Pressure Mean 83 81 Blood Pressure Mean [Right Arm] Blood Pressure Source Blood Pressure Source [Right Arm] Blood Pressure Position Blood Pressure Position [Right Arm] 02 Sat by Pulse Oximetry 94 L 92 L 93 L Oxygen Delivery Method Room Air 05/29/23 11:51 Temperature 98.1 F Temperature Source Oral Pulse Rate 74 Pulse Rate [Left Radial] Respiratory Rate 18 Blood Pressure 140/55 L Blood Pressure [Right Arm] Blood Pressure Mean Blood Pressure Mean [Right Arm] Blood Pressure Source Automatic Cuff Blood Pressure Source [Right Arm] Blood Pressure Position Sitting Blood Pressure Position [Right Arm] 02 Sat by Pulse Oximetry Oxygen Delivery Method Room Air Lab Data Lab Results 05/29/23 07:44: ESR 13, C-Reactive Protein 16.2 H 05/29/23 07:59: WBC 11.0 H, RBC 4.60, Hgb 14.5, Hct 45.2, MCV 98.3 H, MCH 31.5 H, MCHC 32.1, RDW 15.4, Plt Count 221, MPV 8.6, Neut % (Auto) 84.9 H, Lymph % (Auto) 10.1, [place] % (Auto) 4.2, Eos % (Auto) 0.3, Baso % (Auto) 0.5, Neut # (Auto) 9.4 H, Lymph # (Auto) 1.1, [place] # (Auto) 0.5, Eos # (Auto) 0.0, Baso # (Auto) 0.1, Sodium 139, Potassium 4.2, Chloride 106, Carbon Dioxide 25, Anion Gap 12.2, BUN 21 H, Creatinine 1.00, Estimated Creat Clear 52, Estimated GFR 71, Est GFR ( Amer) 86, Glucose 144 H, Calcium 9.8, Total Bilirubin 1.0, AST 36, ALT 29, Alkaline Phosphatase 110, Troponin I 0.02, NT-Pro-B Natriuret Pep 796 H, Total Protein 6.8, Albumin 4.1, Globulin 2.7, Albumin/Globulin Ratio 1.5, Blood Type A Positive, Antibody Screen Negative 05/29/23 11:00: Lactate 2.5 H, Troponin I 0.02 05/29/23 07:59 05/29/23 07:59 Orders (Tests/Meds): ED MEDICATIONS Discontinued Medications Generic Name Dose Route Start Last Admin Trade Name Freq PRN Reason Stop Dose Admin Iopamidol 100 ml 05/29/23 08:56 05/29/23 08:57 Iopamidol-370 (76%);100ml Bottle IV 05/29/23 08:57 100 ml ONCE ONE Administration Sodium Chloride 50 ml 05/29/23 08:56 05/29/23 08:56 0.9 % Sodium Chloride 50 Ml Vial IV 05/29/23 08:57 50 ml ONCE ONE Administration Sodium Chloride 10 ml 05/29/23 08:56 05/29/23 08:57 Sodium Chloride 0.9% 10ml Syr (Rad Only) IV 05/29/23 08:57 10 ml ONCE ONE Administration ORDERS Category Date Time Status Type and Screen Stat BBK 05/29/23 07:[address] angio abdomen pelvis Stat Cat Scan 05/29/23 07:52 Completed CXR --portable [XR chest portable] Stat Exams 05/29/23 07:52 Completed CBC w/Auto Diff [Complete Blood Count Auto Diff] Stat Lab 05/29/23 07:59 Completed CMP [Comprehensive Metabolic Panel] Stat Lab 05/29/23 07:59 Completed CRP [C-Reactive Protein] Stat Lab 05/29/23 07:44 Completed Diarrhea 6-11 Panel, Cdiff PCR Stat Lab 05/29/23 09:51 Received ESR [Erythrocyte Sedimentation Rate] Stat Lab 05/29/23 07:44 Completed Lactic Acid Stat Lab 05/29/23 11:00 Completed NT Pro Brain Natriuretic Pep. Stat Lab 05/29/23 07:59 Completed Trop I [Troponin I] Stat Lab 05/29/23 07:59 Completed Troponin I Q3H Lab 05/29/23 11:00 Completed Troponin I Q3H Lab 05/29/23 14:00 Ordered Medical Decision Narrative: 87-year-old male history of hypertension, hyperlipidemia, CAD, [place] status post 5 vessel CABG currently on aspirin and Plavix, CHF, COPD (?, Not formally diagnosed) presenting with bright red blood per rectum. Patient states that he has been constipated recently. Sat on the toilet for 3 hours overnight, 05/27 to 05/28 and passed large, hard bowel movement. Shortly afterward, got lower abdominal cramping and had bright red blood per rectum. Had 2 separate episodes of mostly bright red stool, so came to the emergency permit for further evaluation. Abdominal cramping is left sided, does not radiate, made better with bowel movement. Associated symptoms include generalized weakness. Denies chest pain, shortness of breath, nausea or vomiting, flank pain, urinary symptoms, syncope, or any other concerns. Has had 1 episode of bright red blood per rectum in the past, self remitted without intervention. History was obtained via conversation with patient and . On arrival, patient hemodynamically stable, alert, oriented x4, appropriate, GCS 15, moving all extremities spontaneously, pupils equal and reactive to light. Full physical exam performed and significant for well-appearing male in no acute distress. Not incredibly pale, answers questions appropriately and mentating appropriately. Patient normotensive with initial BP 113/66, pulse 92, breathing 16 times a minute, 94% on room air and afebrile. No increased work of breathing. Cardiac exam with systolic ejection murmur in right upper sternal border as well as lower extremity swelling. Pulses are equal and symmetric. Lungs are clear to auscultation bilaterally. Abdomen is soft, distended, nontender, no overlying skin changes. No pulsatile mass. Differential includes Diverticular bleed, internal hemorrhoid, polyp, malignancy, AVM, aortic pathology,Among others. Patient was given p.o. challenge for symptomatic management and correction of underlying abnormalities. workup independently interpreted and significant for normal hemoglobin, nonactionable CBC or chemistry. ESR negative, lactate 2.5, likely from mild dehydration and diarrhea. Troponin negative, BNP nonactionable. Lipase also negative. CTA of the abdomen and pelvis with chronic vascular occlusions, but acute colitis in the setting of patent SMA and BARRIE. See radiology read for full review of final results. Diarrhea panel was sent. Results were relayed to family, they feel comfortable going home and are opting out of discharge and monitoring at this time. I feel this is appropriate given patient's stability and lab/imaging findings. Because patient at baseline without signs or symptoms of clinical decompensation, deemed appropriate for discharge. Results were relayed to patient who voiced understanding and were agreeable to outpatient management and follow up. I discussed my clinical impression with patient and answered all questions. At this time, the evidence for any other entities in the differential is insufficient to warrant any further testing or ED observation. This was explained as well. Advisory was given that persistent or worsening symptoms require further evaluation. I confirmed the understanding of this discussion. Critical Care Critical Care Time Critical Care Time: No
--- NOTE | 2023-05-29 08:08 | PC.NURSE ---
provided pt with a warm blanket and discussed plan of care. verbalized understanding. no questions or concerns voiced. call light within reach. bed in lowest position. at bedside
[2023-05-29 08:11] LABS: Basophils # 0.1 K/mm3 (0-0.2); Basophils % 0.5 % (0.1-2.0); Eosinophils % 0.3 % (0.1-12.0); Hematocrit 45.2 % (42.0-52.0); Hemoglobin 14.5 g/dL (14.1-18.0); Lymphocytes # 1.1 K/mm3 (0.7-4.5); Lymphocytes % 10.1 % (10-50); Mean Corpuscular HGB Conc 32.1 g/dL (31.8-35.4); Mean Corpuscular Hemoglobin 31.5 pg (27.0-31.2); Mean Corpuscular Volume 98.3 fl (80-94); Mean Platelet Volume 8.6 fl (7.4-10.4); Monocytes # 0.5 K/mm3 (0.1-1.0); Monocytes % 4.2 % (1.7-9.3); Neutrophils # 9.4 K/mm3 (1.8-7.8); Neutrophils % 84.9 % (37.0-80.0); Platelet Count 221 K/mm3 (142-424); Red Cell Distribution Width 15.4 % (11.5-17.5)
[2023-05-29 08:15] LABS: Chloride 106 mmol/L (98-107); Sodium 139 mmol/L (136-145)
[2023-05-29 08:16] LABS: Potassium 4.2 mmoL/L (3.5-5.1)
[2023-05-29 08:18] LABS: Alanine Aminotransferase 29 U/L (12-78); Albumin Level 4.1 g/dl (3.5-5.0); Albumin/Globulin Ratio 1.5 (1.1-1.8); Alkaline Phosphatase 110 U/L (38-126); Anion Gap 12.2 mEq/L (5-15); Aspartate Amino Transferase 36 U/L (17-59); Blood Urea Nitrogen 21 mg/dl (9-20); Carbon Dioxide 25 mmol/L (22.0-30.0); Creatinine Clearance Estimated 52 mL/min (50-200); Estimated Glomerular Filt Rate 71 ml/min (>60); GFR (African American) 86 ML/MIN (>60); Globulin 2.7 g/dL (1.3-3.2); Total Protein,Serum 6.8 g/dl (6.3-8.2)
[2023-05-29 08:19] LABS: Calcium 9.8 mg/dl (8.4-10.2); Glucose 144 mg/dl (74-100)
[2023-05-29 08:29] LABS: NT Pro Brain Natriuretic Pep. 796 pg/mL (0-450)
[2023-05-29 08:31] LABS: Troponin I 0.02 ng/ml (0.00-0.034)
--- NOTE | 2023-05-29 08:32 | PC.NURSE ---
provided pt with a pillow
--- NOTE | 2023-05-29 08:41 | PC.NURSE ---
pt transported to radiology.
--- NOTE | 2023-05-29 08:50 | PC.NURSE ---
pt returned from radiology.
[2023-05-29] MEDS: 0.9 % SODIUM CHLORIDE 50 ML VIAL IV (08:56)
[2023-05-29] MEDS: SODIUM CHLORIDE 0.9% 10ML SYR (RAD ONLY) 10 ML IV (08:57)
[2023-05-29] MEDS: IOPAMIDOL-370 (76%);100ML BOTTLE 100 ML IV (08:57)
--- NOTE | 2023-05-29 08:57 | PC.NURSE ---
rounded on pt at this time. no needs. updated on POC
[2023-05-29 09:57] LABS: Adenovirus F 40/41, stool Not Detected (NotDetected); Astrovirus Not Detected (NotDetected); Campylobacter Not Detected (NotDetected); Clostridium Difficile A/B, PCR Not Detected (NotDetected); Cryptosporidium Not Detected (NotDetected); Cyclospora Cayetanesis Not Detected (NotDetected); Entamoeba histolytica Not Detected (NotDetected); Enteroaggregative E coli Not Detected (NotDetected); Enteropathogenic E coli Not Detected (NotDetected); Enterotoxigenic E coli Not Detected (NotDetected); Giardia lamblia Not Detected (NotDetected); Norovirus Not Detected (NotDetected); Plesimonas Shigalloides, PCR Not Detected (NotDetected); Rotavirus A Not Detected (NotDetected); Salmonella, PCR Not Detected (NotDetected); Shiga-like toxin E coli Not Detected (NotDetected); Shigella Enterovasive E coli Not Detected (NotDetected); Vibrio Cholerae Not Detected (NotDetected); Vibrio, PCR Not Detected (NotDetected); Yersinia Entercolitica, PCR Not Detected (NotDetected)
--- NOTE | 2023-05-29 10:07 | PC.NURSE ---
Dr. Keita at BS to update pt/visitor on results and POC
--- NOTE | 2023-05-29 10:12 | PC.NURSE ---
preliminary reports given to
--- NOTE | 2023-05-29 10:24 | PC.NURSE ---
rounded on pt. bed in lowest position. call light within reach. no questions or concerns voiced. updated on poc.
--- NOTE | 2023-05-29 11:07 | PC.NURSE ---
lactic and 2nd trop sent to lab
[2023-05-29 11:24] LABS: Lactic Acid 2.5 mmol/L (0.7-2.1)
[2023-05-29 11:34] LABS: Troponin I 0.02 ng/ml (0.00-0.034)
[2023-05-29 11:55] LABS: C-Reactive Protein 16.2 mg/L (0-4)
[2023-05-29 12:13] LABS: Erythrocyte Sedimentation Rate 13 mm/hr (0-20)
[2023-05-29 15:04] LABS: Reflex Lactic Add Lactic Reflex
[2023-06-01 09:36] LABS: Sapovirus Not Detected (NotDetected)
== END 2023-05-29 11:53 | disposition home or self-care (01) ==
PROVIDERS: Emergency Provider Emergency Medicine; PCP Family Medicine
DX: K92.1 Melena (principal); R10.31 Right lower quadrant pain; R53.1 Weakness; I10 Essential (primary) hypertension; E78.5 Hyperlipidemia, unspecified; Z86.73 Personal history of transient ischemic attack (TIA), and cerebral infarction without residual deficits; Z86.79 Personal history of other diseases of the circulatory system
CPT/HCPCS: 36415; 71045; 74174; 80053; 83605; 83880; 84484; 85025; 85651; 86140; 86850; 87506; 99284; Q9967

== ENCOUNTER 2023-06-07 14:15 | Outpatient (CLI) | payer MEDICARE, BC, SELFPAY ==
--- NOTE | 2023-06-07 | CA_ITS ---
FINAL REPORT TECHNIQUE: Color Doppler, duplex Doppler and locke scale sonography of the bilateral neck arterial vasculature was performed. Velocities were measured in the carotid arteries. Stenosis evaluation based on the validated velocity criteria. CLINICAL HISTORY: Known NATALIO occlusion Lt subclavian stent, HTN, HLD, smoker FINDINGS: No flow is seen in the right internal carotid artery, unchanged from prior exam. Right vertebral artery is patent with antegrade flow. The peak systolic velocity of the left common carotid artery is 119 cm/s. The peak systolic velocity of the left internal carotid artery is 400 cm/s and end diastolic velocity 67 cm/s.The left external carotid artery is patent.The left vertebral artery is patent with antegrade flow. 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 Marked elevated velocity of the right internal carotid artery measuring 400 cm/s, greater than 70% stenosis. Recommend CTA or catheter directed angiogram. Reviewed, Interpreted and Dictated by Keanu Cho III, MD Transcribed by Yuli Solano Authenticated and [facility]
== END 2023-06-07 23:59 | disposition home or self-care (01) ==
LOC: RT 14:15
PROVIDERS: PCP Family Medicine; Visit Provider Thoracic Surgery (Cardiothoracic Vascular Surgery)
DX: I65.23 Occlusion and stenosis of bilateral carotid arteries (principal)
CPT/HCPCS: 93880

== ENCOUNTER 2023-08-29 16:12 | Outpatient (POV) | payer MEDICARE, BC, SELFPAY | END 2023-08-29 23:59 | disposition home or self-care (01) | LOC: SC 16:13 | PROVIDERS: PCP Family Medicine; Visit Provider Dermatology | DX: Z00.00 Encounter for general adult medical examination without abnormal findings (principal) ==

== ENCOUNTER 2024-01-02 06:48 | Inpatient (IN) | payer MEDICARE, BC, SELFPAY ==
[2024-01-02] VITALS (16 sets, daily range): BP systolic 107–151; BP diastolic 40–74; PULSE 60–115; RESP 14–27; TEMP 36.7–38.2; O2SAT 88–96; BMI 23.3
--- NOTE | 2024-01-02 07:21 | PC.NURSE ---
Dr. Coburn at BS
--- NOTE | 2024-01-02 07:22 | CT_ITS ---
PROCEDURE INFORMATION: Exam: CTA Chest With Contrast Exam date and time: 01/02/2024 7:58 AM Age: 88 years old Clinical indication: Other: Hypoxia, tachycardia TECHNIQUE: Imaging protocol: Computed tomographic angiography of the chest with contrast. Exam focused on the arteries. 3D rendering (Not supervised by radiologist): MIP and/or 3D reconstructed images were created by the technologist. Radiation optimization: All CT scans at this facility use at least one of these dose optimization techniques: automated exposure control; mA and/or kV adjustment per patient size (includes targeted exams where dose is matched to clinical indication); or iterative reconstruction. Contrast material: ISOVUE 370; Contrast volume: 75 ml; Contrast route: INTRAVENOUS (IV); COMPARISON: CT ANGIO CHEST PE PROTOCOL 12/03/2022 4:28 PM FINDINGS: Limitations: Motion artifact does moderately limit the sensitivity of this examination. Pulmonary arteries: Suspected subocclusive pulmonary embolus in a lingular branch (series 5, image 59). Great vessels off aortic arch: There is a vascular stent in the left subclavian artery. No obvious intra stent stenoses. Aorta: The aorta demonstrates moderate atherosclerotic calcification. Lungs: There is redemonstration of left lower lobe ground-glass consolidation. 6 mm right middle lobe nodules noted (series 5, image 76) Pleural spaces: No pneumothorax. No pleural effusion. Heart: Unremarkable. No cardiomegaly. No pericardial effusion. Heart RV/LV ratio: RV LV ratio is less than 1 Coronary arteries: Postoperative changes from prior coronary artery bypass graft. Lymph nodes: Calcified mediastinal and hilar lymph nodes suggest prior granulomatous exposure. Intraperitoneal space: For findings in the abdomen and pelvis, please refer to the separately dictated abdomen and pelvis CT report under a separate accession number. Bones/joints: Sternotomy wires are intact. Sternotomy wires are intact. Soft tissues: Unremarkable. IMPRESSION: 1. Suspected subocclusive pulmonary embolus in a lingular branch (series 5, image 59). 2. Upper lobe predominant centrilobular emphysema. Left lower lobe pneumonia 3. 6 mm right middle lobe nodulesFor patients at low risk (minimal or absent history of smoking and of other known risk factors), recommend CT Chest at 3-6 months, then consider CT Chest at 18-24 months. For patients at high risk (history of smoking or of other known risk factors), recommend CT Chest at 3-6 months, then CT Chest at 18-24 months. (Reference: Pablito) REFERENCES: Pablito Soria, et al. Guidelines for Management of Incidental Pulmonary Nodules Detected on CT Images: From the Fleischner Society 2017. Radiology. 2017;284(1):228-243.
--- NOTE | 2024-01-02 07:22 | CT_ITS ---
PROCEDURE INFORMATION: Exam: CT Abdomen And Pelvis With Contrast Exam date and time: 01/02/2024 7:58 AM Age: 88 years old Clinical indication: Abdominal pain; Generalized; Additional info: No bm x 1 wk, nausea TECHNIQUE: Imaging protocol: Computed tomography of the abdomen and pelvis with contrast. 3D rendering (Not supervised by radiologist): MIP and/or 3D reconstructed images were created by the technologist. Radiation optimization: All CT scans at this facility use at least one of these dose optimization techniques: automated exposure control; mA and/or kV adjustment per patient size (includes targeted exams where dose is matched to clinical indication); or iterative reconstruction. Contrast material: ISOVUE; Contrast volume: 75 ml; Contrast route: IV; COMPARISON: CT ANGIO ABDOMEN PELVIS 05/29/2023 8:45 AM FINDINGS: Lungs: There is a consolidative left lower lobe ground-glass opacity. 6 mm right middle lobe nodule. Liver: No focal hepatic lesions. Gallbladder and biliary ducts: Gallbladder is distended without radiopaque cholelithiasis. No biliary ductal dilation. Pancreas: There is a 0.9 x 0.9 cm hypodensity in the proximal pancreas statistically a side branch IPMN. No peripancreatic fluid stranding. No main pancreatic ductal dilation. Spleen: No splenomegaly. Adrenal glands: The adrenal glands are normal. Kidneys and ureters: Nephrograms are symmetric. No nephrolithiasis or hydroureteronephrosis on either side. No solid lesions Stomach and bowel: The ascending and transverse colon are decompressed perceivable mucosal hyperenhancement attributed to collapsed lumen. Superimposed colitis is difficult to exclude. Appendix: There has been an appendectomy. Intraperitoneal space: There is no evidence of free intraperitoneal or pelvic fluid. Vasculature: Hyperattenuating material in the coronary tree likely a combination of vascular stents and atherosclerosis. Advanced calcifications along the abdominal aorta. 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 Severe narrowing of the celiac axis and superior mesenteric artery origins. Lymph nodes: No lymphadenopathy. Urinary bladder: Urinary bladder is unremarkable. Reproductive: Unremarkable as visualized. Bones/joints: Status post L1 kyphoplasty. Chronic compression deformities at T12-L2 L3-L4 vertebrae are re-identified. Soft tissues: Unremarkable. IMPRESSION: 1. Advanced aortoiliac atherosclerosis. Chronic occlusion of iliac branches with distal reconstitution. 2. The ascending and transverse colon are decompressed. Perceivable mucosal enhancement attributed to collapsed lumen. Superimposed colitis is difficult to exclude. 3. Left lower lobe pneumonia. 6 mm right middle lobe nodule. For patients at low risk (minimal or absent history of smoking and of other known risk factors), recommend CT Chest at 3-6 months, then consider CT Chest at 18-24 months. For patients at high risk (history of smoking or of other known risk factors), recommend CT Chest at 3-6 months, then CT Chest at 18-24 months. (Reference: Pablito) REFERENCES: Pablito Soria, et al. Guidelines for Management of Incidental Pulmonary Nodules Detected on CT Images: From the Fleischner Society 2017. Radiology. 2017;284(1):228-243.
--- NOTE | 2024-01-02 07:25 | [facility]H.EDGENADL ---
Discharge Plan Disposition Patient Disposition: Admitted Clinical Impressions Clinical Impression: Sepsis due to pneumonia, Respiratory failure, Elevated troponin Discharge ED Provider: Lety Coburn General Adult HPI General Chief complaint: Weakness Stated complaint: weakness Time Seen by Provider: 01/02/24 07:13 Mode of Arrival: EMS Source of Information: Patient Limitations: Physical Limitations Description of Symptoms (Recalled from ER Triage Doc. by RN): Patient complains of weakness starting this morning. Says he did not get any sleep at all last night because of problems with his feet. Denies vomiting, nausea, or diarrhea. History of Present Illness HPI narrative: This patient is an 88-year-old male with a history of hypertension, hyperlipidemia, COPD, prior CVA, prior appendectomy, CAD with TN status post CABG, and prior inguinal hernia repairs presenting to the emergency department for evaluation with concern for general weakness. Patient states that he started feeling bad yesterday and then this morning felt significantly worse. His notes that he has been compliant with his medications at home, but yesterday she can give him his blood pressure medications because his blood pressure was low. He states that he was unable to get out of bed this morning because he is generally weak overall. His notes that the last time this happened he was in acute heart failure. He also notes that he has not had a bowel movement in approximately 1 week and feels nauseated. He is having significant reflux. He denies any fevers, chills, focal weakness, headache, vision changes, chest pain, shortness of breath, vomiting, urinary symptoms, or other acute concerns. He arrives by EMS who noted that he was hypoxic upon their arrival so they did put him on supplemental oxygen. He was also tachycardic but otherwise vitals are reassuring. Related Data Home Medications ?Medication ?Instructions ?Recorded ?Confirmed amlodipine 10 mg-benazepril 20 mg 1 cap PO DAILY 12/03/22 01/02/24 capsule aspirin 81 mg chewable tablet 81 mg PO DAILY Blood Thinner 12/03/22 05/29/23 bisacodyl 5 mg tablet,delayed 10 mg PO DAILY Constipation 12/03/22 05/29/23 release clopidogrel 75 mg tablet 75 mg PO DAILY 12/03/22 01/02/24 docusate sodium 100 mg capsule 100 mg PO BID Constipation 12/03/22 05/29/23 nitroglycerin 0.4 mg sublingual 0.4 mg sublingual Q5M PRN Chest 12/03/22 05/29/23 tablet Pain oxycodone-acetaminophen 5 mg-325 5 tab PO Q6HP PRN Pain (Scale 12/03/22 05/29/23 mg tablet Score 4-6) simvastatin 20 mg tablet 20 mg PO HS 12/03/22 01/02/24 bumetanide 0.5 mg tablet 0.5 mg PO DAILY 01/02/24 01/02/24 Previous Rx's ?Medication ?Instructions ?Recorded fluticasone fur. 100 mcg-umeclid 1 inh inhalation DAILY #60 ea 12/06/22 62.5 mcg-vilant 25 mcg inhalat.powder (Trelegy Ellipta) ipratropium 0.5 mg-albuterol 3 mg 3 ml inhalation Q6HP PRN Shortness 12/06/22 (2.5 mg base)/3 mL nebulization Of Breath #120 mL soln magnesium oxide 400 mg (241.3 mg 400 mg PO BID #60 tabs 12/06/22 magnesium) tablet sod picosulf 10 mg-magnes 3.5 175 ml PO DAILY 2 doses #350 mL 06/27/23 gram-citric 12 gram/175 mL oral solution (Clenpiq) Allergies Allergy/AdvReac Type Severity Reaction Status Date / Time No Known Allergies Allergy Verified 05/29/23 09:02 [facility] Disclaimer: The information contained in this section may have been updated after the patient was seen, as this information can be updated by other users. Medical History Macular degeneration CVA (cerebral vascular accident) Myocardial infarction Hyperlipidemia Hypertension Hernia Surgical History Hx of kyphoplasty History of cardiac cath Hx of CABG History of carotid endarterectomy History of appendectomy Family History (Updated 01/02/24 @ 10:01 by Nori Smyth RN) Other No significant family history Social History (Updated 01/02/24 @ 10:02 by Nori Smyth RN) Smoking Status: Never smoker alcohol intake: never current occupational status: retired Travel in the last 8 weeks: None Other Medical History Have you received the Flu Vaccine for this season: No Have you received the Pneumonia Vaccine: No ROS Obtained: Yes All systems reviewed & no additional complaints except as documented Physical Exam General General appearance: alert and in no apparent distress Comment: Slightly ill-appearing, generally weak without focal deficits Head Head exam: atraumatic and normocephalic Eye Eye exam: Present normal appearance, PERRL and EOMI ENT ENT exam: Present normal exam, normal oropharynx, mucous membranes moist and normal external ear exam Neck Neck exam: Present normal inspection, full ROM and trachea midline; Absent tenderness Chest Chest inspection: Present normal inspection and symmetric chest wall rise; Absent tenderness Respiratory Respiratory exam: Present normal lung sounds bilaterally; Absent respiratory distress, wheezes, stridor or accessory muscle use Cardiovascular Cardiovascular exam: Present normal rhythm and tachycardia Abdominal Exam Abdominal exam: Present soft and distention; Absent tenderness, guarding, rebound or rigidity Extremities Exam Extremities exam: Present full ROM, normal capillary refill and edema (Bilateral lower extremity edema, which states is chronic. Left slightly greater than right, which also states is chronic); Absent tenderness Back Exam Back exam: Present normal inspection and full ROM; Absent tenderness Neurological Exam Neurological exam: Present alert, oriented X3, CN II-XII intact, normal gait and other (Generally weak without focal deficits); Absent motor sensory deficit Psychiatric Psychiatric exam: Present normal affect and normal mood Skin Skin exam: Present warm and dry Medical Decision Making Medical Records Medical records reviewed: Yes I reviewed the patient's medical records. Screening: Per USPSTF and CDC recommendations, given the prevalence of disease in our region, it is our hospital?s policy to screen for HIV and viral Hepatitis for all patients aged 18 and over and those with ongoing risk factors. Jaden Inquiry Pt receiving controlled substance: No Vital Signs: 01/02/24 06:48 01/02/24 07:09 01/02/24 07:30 Temperature 98.7 F Temperature Source Oral Pulse Rate 99 H Pulse Rate [Right Radial] 115 H Respiratory Rate 18 26 H 27 H Blood Pressure 132/62 133/59 L Blood Pressure [Right Arm] 145/74 H Blood Pressure Mean Blood Pressure Mean [Right Arm] 97 Blood Pressure Source [Right Arm] Automatic Cuff Blood Pressure Position [Right Arm] Supine 02 Sat by Pulse Oximetry 88 L 93 L 93 L Oxygen Delivery Method Room Air Oxygen Flow Rate (LPM) 01/02/24 08:09 01/02/24 08:30 01/02/24 09:00 Temperature Temperature Source Pulse Rate 99 H 90 84 Pulse Rate [Right Radial] Respiratory Rate Blood Pressure 151/66 H 144/59 H 142/64 H Blood Pressure [Right Arm] Blood Pressure Mean 87 90 Blood Pressure Mean [Right Arm] Blood Pressure Source [Right Arm] Blood Pressure Position [Right Arm] 02 Sat by Pulse Oximetry 95 96 96 Oxygen Delivery Method Room Air Nasal Cannula Nasal Cannula Oxygen Flow Rate (LPM) 3.5 3.5 01/02/24 09:30 01/02/24 10:06 01/02/24 10:09 Temperature 98.7 F Temperature Source Pulse Rate 92 H 87 87 Pulse Rate [Right Radial] Respiratory Rate 24 Blood Pressure 127/54 L 135/60 135/60 Blood Pressure [Right Arm] Blood Pressure Mean 78 85 Blood Pressure Mean [Right Arm] Blood Pressure Source [Right Arm] Blood Pressure Position [Right Arm] 02 Sat by Pulse Oximetry 95 95 Oxygen Delivery Method Nasal Cannula Nasal Cannula Nasal Cannula Oxygen Flow Rate (LPM) 3.5 3.5 3.5 Lab Data Lab results reviewed: Yes I reviewed the patient's lab results. Lab Results 01/02/24 07:00: WBC 12.8 H, RBC 5.30, Hgb 16.4, Hct 49.3, MCV 93.0, MCH 31.0, MCHC 33.3, RDW 15.2, Plt Count 200, MPV 8.4, Neut % (Auto) 87.6 H, Lymph % (Auto) 8.3 L, [place] % (Auto) 3.7, Eos % (Auto) 0.1, Baso % (Auto) 0.3, Neut # (Auto) 11.2 H, Lymph # (Auto) 1.1, [place] # (Auto) 0.5, Eos # (Auto) 0.0, Baso # (Auto) 0.0, Total Counted 100, Neutrophils % (Manual) 86 H, Lymphocytes % (Manual) 11, Monocytes % (Manual) 2, Eosinophils % (Manual) 1, Platelet Estimate Normal, RBC Morphology Normal, Sodium 141, Potassium 3.9, Chloride 104, Carbon Dioxide 22, Anion Gap 18.9 H, BUN 15, Creatinine 1.00, Estimated Creat Clear 49, Estimated GFR 71, Est GFR ( Amer) 86, Glucose 158 H, Calcium 9.6, Phosphorus 2.8, Magnesium 1.8, Total Bilirubin 1.3, AST 33, ALT 26, Alkaline Phosphatase 85, Troponin I 0.06 H, C-Reactive Protein 25.2 H, NT-Pro-B Natriuret Pep 909 H, Total Protein 8.0, Albumin 4.7, Globulin 3.3 H, Albumin/Globulin Ratio 1.4, Procalcitonin 0.066, TSH 4.46, Thyroxine (T4) 5.4 L 01/02/24 07:24: VBG pH 7.31, VBG pCO2 45.8, VBG pO2 29.5, VBG HCO3 22.6 L, VBG Total CO2 24.0, VBG O2 Saturation 58.4, VBG Base Excess -3.6 L, VBG Lactic Acid 4.6 H 01/02/24 07:35: SARS-CoV-2 (PCR) Not detected, Influenza A Untype (PCR) Not detected, Influenza Type B (PCR) Not detected 01/02/24 07:44: Lactate 2.5 H 01/02/24 07:50: Urine Color Yellow, Urine Appearance Clear, Urine pH 6.0, Ur Specific [place] 1.025, Urine Protein 3+ A, Urine Glucose (UA) Negative, Urine Ketones 1+, Urine Blood 1+ A, Urine Nitrate Negative, Urine Bilirubin Negative, Urine Urobilinogen 0.2, Ur Leukocyte Esterase Negative, Urine RBC Occasional, Urine WBC Occasional, Ur Squamous Epith Cells None, Urine Bacteria None 01/02/24 07:00 01/02/24 07:00 Orders (Tests/Meds): ED MEDICATIONS Generic Name Dose Route Start Last Admin Trade Name Oscarq PRN Reason Stop Dose Admin Albuterol/Ipratropium 3 ml 01/02/24 18:00 Ipratropium/Albuterol 3 Ml Neb 02/01/24 17:59 Q6RT ALANNA Aspirin 81 mg 01/03/24 09:00 Aspirin 81mg Chewable Tablet PO 02/02/24 08:59 DAILY ALANNA Bumetanide 0.5 mg 01/03/24 09:00 Bumetanide 1 Mg Tablet PO 02/02/24 08:59 DAILY [facility] Clopidogrel Bisulfate 75 mg 01/03/24 09:00 Clopidogrel 75mg Tab PO 02/02/24 08:59 DAILY ALANNA Docusate Sodium 100 mg 01/02/24 21:00 Docusate Sodium 100 Mg Capsule PO 02/01/24 20:59 BID ALANNA Fluticasone/Umeclidinium/Vilanterol 1 puff 01/03/24 09:00 Fluticasone/Umeclidin/Vilanter 100/62.5/25mcg Inhaler IH 02/02/24 08:59 DAILY ALANNA Ceftriaxone Sodium 2 gm/ 100 mls @ 200 mls/hr 01/03/24 08:00 Sodium Chloride IV 01/13/24 07:59 Q24H ALANNA Sodium Chloride 3 ml 01/02/24 07:37 01/02/24 10:38 Sodium Chloride 3% 15ml Neb IH 02/01/24 07:36 3 ml ONCE PRN Administration [employer] Discontinued Medications Generic Name Dose Route Start Last Admin Trade Name Freq PRN Reason Stop Dose Admin Bisacodyl 10 mg 01/02/24 14:11 01/02/24 14:47 Bisacodyl 10mg Supp RC 01/02/24 14:12 10 mg ONCE ONE Administration Ceftriaxone Sodium 2 gm/ 100 mls @ 200 mls/hr 01/02/24 08:47 01/02/24 09:42 Sodium Chloride IV 01/02/24 09:16 200 mls/hr ONCE ONE Administration Sodium Chloride 1,000 mls @ 999 mls/hr 01/02/24 09:00 01/02/24 09:43 Sod Chlor 0.9% 1000ml Bag IV 01/02/24 10:00 999 mls/hr .Q1H1M ONE Administration Iopamidol 75 ml 01/02/24 08:02 01/02/24 08:07 Iopamidol-370 (76%);100ml Bottle IV 01/02/24 08:03 75 ml ONCE ONE Administration Sodium Chloride 50 ml 01/02/24 08:02 01/02/24 08:07 0.9 % Sodium Chloride 50 Ml Vial IV 01/02/24 08:03 50 ml ONCE ONE Administration Sodium Chloride 10 ml 01/02/24 08:02 01/02/24 08:07 Sodium Chloride 0.9% 10ml Syr (Rad Only) IV 01/02/24 08:03 10 ml ONCE ONE Administration ORDERS Category Date Time Status CT abdomen pelvis w con Stat Cat Scan 01/02/24 07:[address] angio chest PE protocol Stat Cat Scan 01/02/24 07:22 Completed BNP [NT Pro Brain Natriuretic Pep.] Stat Lab 01/02/24 07:00 Completed CBC w/Auto Diff [Complete Blood Count Auto Diff] Stat Lab 01/02/24 07:00 Completed CMP [Comprehensive Metabolic Panel] Stat Lab 01/02/24 07:00 Completed CRP [C-Reactive Protein] Stat Lab 01/02/24 07:00 Completed Complete Blood Count Auto Diff AMLAB Lab 01/03/24 06:00 Ordered Comprehensive Metabolic Panel AMLAB Lab 01/03/24 06:00 Ordered Lactic Acid Stat Lab 01/02/24 07:44 Completed MAG [Magnesium] Stat Lab 01/02/24 07:00 Completed Magnesium AMLAB Lab 01/03/24 06:00 Ordered PHOS [Phosphorous] Stat Lab 01/02/24 07:00 Completed Procalcitonin Stat Lab 01/02/24 07:00 Completed Rapid PCR Covid and Flu A/B Stat Lab 01/02/24 07:35 Completed T4 (Thyroxine) Stat Lab 01/02/24 07:00 Completed TSH [Thyroid Stimulating Hormone] Stat Lab 01/02/24 07:00 Completed Trop I [Troponin I] Stat Lab 01/02/24 07:00 Completed Troponin I Q3H Lab 01/02/24 10:03 Completed Troponin I Q3H Lab 01/02/24 13:40 Completed UA [Urinalysis and Microscopic] Stat Lab 01/02/24 07:50 Completed Blood Culture Stat Micro 01/02/24 09:30 Received Sputum Culture & Gram Stain Stat Micro 01/02/24 12:10 Received VBG [Venous Blood Gas] Stat RT 01/02/24 07:24 Completed ECG Data Tracing #1: I reviewed this ECG and interpreted as documented below: Normal sinus rhythm with first-degree AV block. Right bundle branch block noted. ST depressions that are similar to prior EKG without significant changes. No acute STEMI. ECG initial impression date: 01/02/24 ECG initial impression time: 07:34 Medical Decision Narrative: In summary, this patient is a 88-year-old male presenting to the Emergency Department for evaluation of general weakness, nausea, reflux, constipation. He was also noted to be hypoxic and tachycardic by EMS. Differential diagnoses considered include but are not limited to dehydration, anemia, CHF exacerbation, COPD exacerbation, pulmonary edema, respiratory failure, pneumonia, thyroid abnormalities, electrolyte derangements, bowel obstruction, constipation. Ruling out the most morbid conditions drove assessment. It should be noted patient's history includes extensive cardiovascular history which may or may not be at goal therapy. This complicates all aspects of care by increasing patient's risk for morbidity. On exam, the patient is lying in bed in no acute distress, but he is slightly ill-appearing and generally weak. He is also tachycardic and hypoxic, requiring 3 L nasal cannula to maintain an oxygen saturation of 91%. His lungs are clear bilaterally and he does not have significantly increased work of breathing. He has some mild abdominal distention but no significant tenderness. Workup included broad lab evaluation to evaluate for infectious, metabolic, cardiac causes of his symptoms as well as CT chest, abdomen, and pelvis to evaluate his hypoxia and constipation/nausea. I independently interpreted CT scans prior to the radiologist read and noted pneumonia. Please see their read for final interpretation. Labs were obtained that demonstrated elevated troponin, leukocytosis, elevated lactic acid. I feel patient likely has sepsis secondary to pneumonia as well as possible NSTEMI in the setting of this acute illness. No acute STEMI noted on EKG. Patient was given IV Rocephin as well as a bolus of IV fluids. He was not given full sepsis bolus, as he has CHF and already has respiratory failure. On reassessment, patient had good improvement after administration of as above. He remains on 3 L nasal cannula.. Ultimately, I feel he would benefit for admission for treatment and continued monitoring. I had an interactive discussion with the hospitalist to admit the patient in stable condition Critical Care Critical Care Time Critical Care Time: No
[2024-01-02 07:31] LABS: VBG Base Excess -3.6 mmol/L (-2.4-2.3); VBG HCO3 22.6 mmol/L (23-30); VBG Oxygen Saturation 58.4 % (50-70); VBG PCO2 45.8 mmol/L (35-51); VBG PH 7.31 mmol/L (7.31-7.41); VBG PO2 29.5 mmol/L (28-40)
--- NOTE | 2024-01-02 07:31 | ECG_ITS ---
APPROVED REPORT Exam: Resting ECG HR:99 bpm ECG Measurements Heart Rate 99 AXES HI 223 P 241 QRSd 141 QRS 7 QT 411 T 76 QTc 467 Conclusion SINUS RHYTHM WITH FIRST DEGREE AV BLOCK RIGHT BUNDLE BRANCH BLOCK [120+ ms QRS DURATION, UPRIGHT V1, 40+ ms S IN I/aVL/V4/V5/V6] ST DEPRESSION, CONSIDER SUBENDOCARDIAL INJURY [0.1+ mV ST DEPRESSION] ABNORMAL ECG Unchanged from prior ECG Electronically signed by : YEYO GOMEZ, 01/02/2024 15:29:35
[2024-01-02 07:33] LABS: Basophils % 0.3 % (0.1-2.0); Eosinophils % 0.1 % (0.1-12.0); Hematocrit 49.3 % (42.0-52.0); Hemoglobin 16.4 g/dL (14.1-18.0); Lymphocytes # 1.1 K/mm3 (0.7-4.5); Lymphocytes % 8.3 % (10-50); Mean Corpuscular HGB Conc 33.3 g/dL (31.8-35.4); Mean Platelet Volume 8.4 fl (7.4-10.4); Monocytes # 0.5 K/mm3 (0.1-1.0); Monocytes % 3.7 % (1.7-9.3); Neutrophils # 11.2 K/mm3 (1.8-7.8); Neutrophils % 87.6 % (37.0-80.0); Platelet Count 200 K/mm3 (142-424); Red Cell Distribution Width 15.2 % (11.5-17.5); White Blood Count 12.8 K/mm3 (4.8-10.8)
[2024-01-02 07:35] LABS: MANUAL DIFFERENTIAL MANUAL DIFFERENTIAL (MANUAL DIFF)
[2024-01-02 07:38] LABS: Alanine Aminotransferase 26 U/L (12-78); Albumin Level 4.7 g/dl (3.5-5.0); Albumin/Globulin Ratio 1.4 (1.1-1.8); Alkaline Phosphatase 85 U/L (38-126); Anion Gap 18.9 mEq/L (5-15); Aspartate Amino Transferase 33 U/L (17-59); Bilirubin,Total 1.3 mg/dl (0.2-1.3); Blood Urea Nitrogen 15 mg/dl (9-20); Calcium 9.6 mg/dl (8.4-10.2); Carbon Dioxide 22 mmol/L (22.0-30.0); Chloride 104 mmol/L (98-107); Creatinine Clearance Estimated 49 mL/min (50-200); Estimated Glomerular Filt Rate 71 ml/min (>60); GFR (African American) 86 ML/MIN (>60); Globulin 3.3 g/dL (1.3-3.2); Glucose 158 mg/dl (74-100); Magnesium 1.8 mg/dl (1.6-2.3); Phosphorous 2.8 mg/dl (2.5-4.5); Potassium 3.9 mmoL/L (3.5-5.1); Sodium 141 mmol/L (136-145)
[2024-01-02 07:39] LABS: Coronavirus 19, PCR Not Detected (NotDetected); Influenza A, PCR Not Detected (NotDetected); Influenza B, PCR Not Detected (NotDetected)
[2024-01-02 07:42] LABS: Lactate Venous 4.6 mmol/L (0.4-2.0)
[2024-01-02 07:50] LABS: NT Pro Brain Natriuretic Pep. 909 pg/mL (0-450); Troponin I 0.06 ng/ml (0.00-0.034)
--- NOTE | 2024-01-02 07:51 | PC.NURSE ---
pt to CT via stretcher with data center technician
[2024-01-02 07:53] LABS: Microscopic, Urine URINE MICROSCOPIC (MICROSCOPIC)
--- NOTE | 2024-01-02 08:04 | PC.NURSE ---
pt back from CT via stretcher
[2024-01-02] MEDS: SODIUM CHLORIDE 0.9% 10ML SYR (RAD ONLY) 10 ML IV (08:07)
[2024-01-02] MEDS: IOPAMIDOL-370 (76%);100ML BOTTLE 75 ML IV (08:07)
[2024-01-02] MEDS: 0.9 % SODIUM CHLORIDE 50 ML VIAL IV (08:07)
[2024-01-02 08:08] LABS: C-Reactive Protein 25.2 mg/L (0-4); Thyroid Stimulating Hormone 4.46 uIU/mL (0.465-4.68)
--- NOTE | 2024-01-02 08:09 | PC.NURSE ---
Pt given a pillow
[2024-01-02 08:13] LABS: Appearance,Urine CLEAR (Clear); Bilirubin,Urine Negative (Negative); Blood, Urine 1+ (Negative); Color,Urine YELLOW (Yellow); Glucose,Urine (UA) Negative (Negative); Ketones,Urine 1+ (Negative); Leukocyte Esterase,Urine Negative (Negative); Nitrate,Urine Negative (Negative); Protein,Urine 3+ (Negative); Specific Gravity, Urine 1.025 (1.005-1.030); Urobilinogen,Urine 0.2 EU/dl (0.2)
[2024-01-02 08:14] LABS: Lactic Acid 2.5 mmol/L (0.7-2.1)
[2024-01-02 08:19] LABS: T4 (Thyroxine) 5.4 ug/dl (5.53-11.0)
[2024-01-02 08:21] LABS: Procalcitonin 0.066 ng/mL (0.0-2.0)
[2024-01-02 08:30] LABS: RBC,Urine Occasional #/hpf (0-3); WBC,Urine Occasional #/hpf (0-3)
[2024-01-02 08:32] LABS: Eosinophils % 1 % (0-3); Lymphocytes % 11 % (10-50); Monocytes % 2 % (2-9); Neutrophils % 86 % (42-76); Platelet Estimate Normal; RBC Morphology Normal; Total Cells Counted 100
--- NOTE | 2024-01-02 08:54 | PC.NURSE ---
Dr. Coburn at [facility] for update on POC
--- NOTE | 2024-01-02 09:29 | P.HP_ITS ---
History of Present Illness *Admission Date: 01/02/24 *Reason for visit:: Dyspnea *History of present illness: Mr. Awan is an 88-year-old male with significant history of hypertension, hyperlipidemia, COPD, prior CVA, CAD status post [place] with CABG, on room air at home. Who presented to the ER with complaint of general weakness. This is progressed over the past 24 to 48 hours. States he began feeling worse yesterday and having productive cough. held his blood pressure meds haylie use she was concerned about his weakness but otherwise has been taking his medications as prescribed. Denies any chest pain. Cough productive for thick yellow mucus. He got more weak this morning and was unable to get out of bed. She was concerned because last time he felt this bad he had acute heart failure. Also reports he has not had a bowel movement in almost a week workup in the ER concerning for left lower lobe pneumonia with new oxygen requirement.. Due to significance of symptoms and new oxygen requirement, medicine consulted for admission and further management. On my evaluation, patient states he came to the ER via EMS. Family at bedside. Reports he is feeling marginally better after getting fluids and antibiotics. Initially was tachycardic, tachypneic, elevated white count, and pneumonia. Meeting sepsis criteria. Has been having reflux but denies any shweta emesis. Alert and oriented x 3 on exam. [facility] Disclaimer: The information contained in this section may have been updated after the patient was seen, as this information can be updated by other users. Medical History Macular degeneration CVA (cerebral vascular accident) Myocardial infarction Hyperlipidemia Hypertension Hernia Surgical History Hx of kyphoplasty History of cardiac cath Hx of CABG History of carotid endarterectomy History of appendectomy Family History Other No significant family history Social History Smoking Status: Never smoker alcohol intake: never current occupational status: retired Travel in the last 8 weeks: None Other Medical History Have you received the Flu Vaccine for this season: No Have you received the Pneumonia Vaccine: No Review of Systems Review of Systems Review of systems (narrative): 14 point review of systems performed, pertinent positives and negatives as per [facility] Meds Home Medications and Allergies Home Medications ?Medication ?Instructions ?Recorded ?Confirmed ?Type amlodipine 10 mg-benazepril 20 mg 1 cap PO DAILY 12/03/22 01/02/24 History capsule aspirin 81 mg chewable tablet 81 mg PO DAILY Blood Thinner 12/03/22 05/29/23 History bisacodyl 5 mg tablet,delayed 10 mg PO DAILY Constipation 12/03/22 05/29/23 History release clopidogrel 75 mg tablet 75 mg PO DAILY 12/03/22 01/02/24 History docusate sodium 100 mg capsule 100 mg PO BID Constipation 12/03/22 05/29/23 History nitroglycerin 0.4 mg sublingual 0.4 mg sublingual Q5M PRN Chest 12/03/22 05/29/23 History tablet Pain oxycodone-acetaminophen 5 mg-325 5 tab PO Q6HP PRN Pain (Scale 12/03/22 05/29/23 History mg tablet Score 4-6) simvastatin 20 mg tablet 20 mg PO HS 12/03/22 01/02/24 History fluticasone fur. 100 mcg-umeclid 1 inh inhalation DAILY #60 ea 12/06/22 05/29/23 Rx 62.5 mcg-vilant 25 mcg inhalat.powder (Trelegy Ellipta) ipratropium 0.5 mg-albuterol 3 mg 3 ml inhalation Q6HP PRN Shortness 12/06/22 05/29/23 Rx (2.5 mg base)/3 mL nebulization Of Breath #120 mL soln magnesium oxide 400 mg (241.3 mg 400 mg PO BID #60 tabs 12/06/22 05/29/23 Rx magnesium) tablet sod picosulf 10 mg-magnes 3.5 175 ml PO DAILY 2 doses #350 mL 06/27/23 Rx gram-citric 12 gram/175 mL oral solution (Clenpiq) bumetanide 0.5 mg tablet 0.5 mg PO DAILY 01/02/24 01/02/24 History New Prescriptions to Start Prescriptions: Allergies Allergy/AdvReac Type Severity Reaction Status Date / Time No Known Allergies Allergy Verified 05/29/23 09:02 Exam Data for Last 24 hours Vital signs and Labs for Last 24 Hours: Temp Pulse Resp BP Pulse Ox O2 Del Method O2 Flow Rate 98.7 F 84 27 H 142/64 H 96 Nasal Cannula 3.5 01/02/24 06:48 01/02/24 09:00 01/02/24 07:30 01/02/24 09:00 01/02/24 09:00 01/02/24 09:00 01/02/24 09:00 Laboratory Results - last 24 hr 01/02/24 07:00: WBC 12.8 H, RBC 5.30, Hgb 16.4, Hct 49.3, MCV 93.0, MCH 31.0, MCHC 33.3, RDW 15.2, Plt Count 200, MPV 8.4, Neut % (Auto) 87.6 H, Lymph % (Auto) 8.3 L, [place] % (Auto) 3.7, Eos % (Auto) 0.1, Baso % (Auto) 0.3, Neut # (Auto) 11.2 H, Lymph # (Auto) 1.1, [place] # (Auto) 0.5, Eos # (Auto) 0.0, Baso # (Auto) 0.0, Total Counted 100, Neutrophils % (Manual) 86 H, Lymphocytes % (Manual) 11, Monocytes % (Manual) 2, Eosinophils % (Manual) 1, Platelet Estimate Normal, RBC Morphology Normal, Sodium 141, Potassium 3.9, Chloride 104, Carbon Dioxide 22, Anion Gap 18.9 H, BUN 15, Creatinine 1.00, Estimated Creat Clear 49, Estimated GFR 71, Est GFR ( Amer) 86, Glucose 158 H, Calcium 9.6, Phosphorus 2.8, Magnesium 1.8, Total Bilirubin 1.3, AST 33, ALT 26, Alkaline Phosphatase 85, Troponin I 0.06 H, C-Reactive Protein 25.2 H, NT-Pro-B Natriuret Pep 909 H, Total Protein 8.0, Albumin 4.7, Globulin 3.3 H, Albumin/Globulin Ratio 1.4, Procalcitonin 0.066, TSH 4.46, Thyroxine (T4) 5.4 L 01/02/24 07:24: VBG pH 7.31, VBG pCO2 45.8, VBG pO2 29.5, VBG HCO3 22.6 L, VBG Total CO2 24.0, VBG O2 Saturation 58.4, VBG Base Excess -3.6 L, VBG Lactic Acid 4.6 H 01/02/24 07:35: SARS-CoV-2 (PCR) Not detected, Influenza A Untype (PCR) Not detected, Influenza Type B (PCR) Not detected 01/02/24 07:44: Lactate 2.5 H 01/02/24 07:50: Urine Color Yellow, Urine Appearance Clear, Urine pH 6.0, Ur Specific [place] 1.025, Urine Protein 3+ A, Urine Glucose (UA) Negative, Urine Ketones 1+, Urine Blood 1+ A, Urine Nitrate Negative, Urine Bilirubin Negative, Urine Urobilinogen 0.2, Ur Leukocyte Esterase Negative, Urine RBC Occasional, Urine WBC Occasional, Ur Squamous Epith Cells None, Urine Bacteria None I & O for Last 24 hours: Intake & Output 12/30/23 12/31/23 01/01/24 01/02/24 23:59 22:59 23:59 23:59 Weight 65.771 kg Constitutional Constitutional: mild distress, average body habitus, chronically ill appearing and cooperative *Routine HEENT Exam Head: Present normocephalic and atraumatic Eye: Present EOMI, PERRL and normal accommodation ENT: Present mucous membranes moist *Routine Neck Exam Neck: Present supple, full ROM and trachea midline *Routine Respiratory Exam Respiratory: Present rhonchi, crackles (Left lower lobe), diminished air movement and symmetric chest movement; Absent wheezes *Routine Cardiovascular Exam Cardiovascular: Present RRR, Normal S1 and Normal S2 *Routine Abdominal Exam Abdominal: Present tenderness, distended and wound *Routine Rectal Exam Rectal:: other *Routine Genitalia Exam Genitalia:: other *Routine Extremities Exam Extremities: Present edema, full ROM and normal capillary refill *Routine Skin Exam Skin: Present dry, warm and wounds *Routine Neurological Exam Neurological: Present alert, oriented X3, normal reflexes, moving all extremities and normal speech Routine Psychiatric Exam Psychiatric: Present cooperative and good insight Assessment and Plan *Assessment and plan (1) Sepsis due to pneumonia: Status: Acute Category: Medical Code(s): J18.9 - Pneumonia, unspecified organism; A41.9 - Sepsis, unspecified organism (2) Respiratory failure: Status: Acute Category: Medical Code(s): J96.90 - Respiratory failure, unspecified, unspecified whether with hypoxia or hypercapnia (3) Emphysematous COPD: Status: Acute Qualifiers: Emphysema type: other Qualified Code(s): J43.8 - Other emphysema Category: Medical Code(s): J43.9 - Emphysema, unspecified (4) Hypertension: Status: Acute Category: Medical Code(s): I10 - Essential (primary) hypertension (5) Hyperlipidemia: Status: Acute Category: Medical Code(s): E78.5 - Hyperlipidemia, unspecified (6) Chronic back pain: Status: Acute Category: Medical Code(s): M54.9 - Dorsalgia, unspecified; G89.29 - Other chronic pain (7) Debility: Status: Acute Category: Medical Code(s): R53.81 - Other malaise Plan 88-year-old male with history of CABG, COPD, on room air at home. Presents with new oxygen requirement and finding of pneumonia. Meeting sepsis criteria on admission with tachycardia, tachypnea, leukocytosis, pneumonia on imaging. Discussed case with ER physician, request admission for antibiotics and further treatment of his pneumonia and respiratory failure. I agreed to admit for further care. Continues to require 3 L oxygen. PSI/port score of 126, class IV risk. Necessitates inpatient admission. Problems addressed as follows: Acute hypoxemic respiratory failure Sepsis Left lower lobe pneumonia -Sepsis and PSI/port score as above. Continue broad-spectrum antibiotics with Rocephin 2 g daily IV. -Sputum and blood cultures obtained and pending. -White count elevated at 12.8, repeat CBC, CMP, magnesium ordered for the morning. Kidney function normal with BUN 15, creatinine 1. Magnesium 1.8, potassium 3.9. -Continue supplemental oxygen for goal sats greater 90%. Currently on 3-1/2 L. - Per my review of chest CT, has left lower lobe consolidation. No effusion. Findings consistent with pneumonia. -COVID and flu negative. -CRP elevated at 25 -Having intermittent fevers above 100, continue Tylenol 650 mg as needed every 4-6 hours for fever or pain -Bumex 0.5 mg twice daily, DuoNebs every 6 hours scheduled. -On CT of chest, also noted to have subsegmental PE. Constipation: No bowel movement in a week. Bisacodyl suppository once with docusate/senna twice daily scheduled Elevated troponin -Denies any chest pain. Initial troponin 0.06, elevated to 0.2. In the setting of no chest pain and no ischemic changes on EKG, suspect supply/demand mismatch given severity of illness. CAD: Continue Plavix 75 mg daily, aspirin 80 g daily, hold blood pressure meds in the setting of sepsis and normotensive state. Full code Therapeutic Lovenox 65 mg subcu twice daily
[2024-01-02] MEDS: CEFTRIAXONE SODIUM 2 GM in 0.9 % SODIUM CHLORIDE 100 ML IV (09:42)
[2024-01-02] MEDS: 0.9 % SODIUM CHLORIDE 1000ML 1,000 ML 999 ML IV (09:43)
--- NOTE | 2024-01-02 10:02 | PC.NURSE ---
called report to Dominique
--- NOTE | 2024-01-02 10:04 | PC.NURSE ---
lab notified that 2nd troponin was sent up; spoke with selena
--- NOTE | 2024-01-02 10:05 | PC.NURSE ---
pt being transported to 2nd floor via stretcher with 2 floor techs
--- NOTE | 2024-01-02 10:13 | PC.NURSE ---
arrived to floor by stretcher from ED
[2024-01-02] MEDS: SODIUM CHLORIDE 3% 15ML NEB 3 ML IH (10:38)
--- NOTE | 2024-01-02 10:42 | PC.NURSE ---
hospitalist made aware of critical troponin of 0.2. no new orders at this time.
[2024-01-02 11:40] LABS: Reflex Lactic Add Lactic Reflex
[2024-01-02 12:34] LABS: Lactic Acid Follow Up (RFLX 1) 2.1 mmol/L (0.7-2.1)
[2024-01-02 14:08] LABS: Reflex Lactic (2 hrs) Add Lactic Reflex
[2024-01-02] MEDS: BISACODYL 10MG SUPP 10 MG RC (14:47)
[2024-01-02 14:55] LABS: Troponin I 0.28 ng/ml (0.00-0.034)
--- NOTE | 2024-01-02 15:01 | PC.NURSE ---
hosp[italiost notified of critical troponin of 0.28. no new orders at this time.
[2024-01-02] MEDS: ACETAMINOPHEN 325MG TAB 650 MG PO (16:58)
[2024-01-02] MEDS: IPRATROPIUM/ALBUTEROL 3 ML NEB IH ×2 (18:13→23:02)
[2024-01-02] MEDS: ENOXAPARIN 100MG/ML SYRINGE 65 MG SUBCUT (18:34)
[2024-01-02] MEDS: DOCUSATE SODIUM 100 MG CAPSULE PO (20:06)
[2024-01-03] VITALS (11 sets, daily range): BP systolic 125–142; BP diastolic 46–76; PULSE 63–100; RESP 16–19; TEMP 36.4–36.9; O2SAT 91–96; BMI 23.3
[2024-01-03] MEDS: ENOXAPARIN 100MG/ML SYRINGE 65 MG SUBCUT (05:57)
[2024-01-03] MEDS: IPRATROPIUM/ALBUTEROL 3 ML NEB IH ×3 (06:35→18:17)
[2024-01-03] MEDS: FLUTICASONE/UMECLIDIN/VILANTER 100/62.5/25MCG INHALER 1 PUFF IH (06:35)
[2024-01-03 07:44] LABS: Alanine Aminotransferase 17 U/L (12-78); Albumin Level 3.5 g/dl (3.5-5.0); Albumin/Globulin Ratio 1.2 (1.1-1.8); Alkaline Phosphatase 63 U/L (38-126); Anion Gap 11.5 mEq/L (5-15); Aspartate Amino Transferase 26 U/L (17-59); Bilirubin,Total 1.1 mg/dl (0.2-1.3); Blood Urea Nitrogen 14 mg/dl (9-20); Calcium 8.7 mg/dl (8.4-10.2); Carbon Dioxide 21 mmol/L (22.0-30.0); Chloride 107 mmol/L (98-107); Creatinine Clearance Estimated 49 mL/min (50-200); Estimated Glomerular Filt Rate 92 ml/min (>60); GFR (African American) 111 ML/MIN (>60); Globulin 2.9 g/dL (1.3-3.2); Glucose 102 mg/dl (74-100); Magnesium 1.9 mg/dl (1.6-2.3); Potassium 3.5 mmoL/L (3.5-5.1); Sodium 136 mmol/L (136-145); Total Protein,Serum 6.4 g/dl (6.3-8.2)
[2024-01-03 08:05] LABS: Basophils # 0.1 K/mm3 (0-0.2); Basophils % 0.5 % (0.1-2.0); Eosinophils % 0.2 % (0.1-12.0); Hematocrit 39.9 % (42.0-52.0); Lymphocytes # 1.8 K/mm3 (0.7-4.5); Lymphocytes % 16.5 % (10-50); Mean Corpuscular HGB Conc 35.1 g/dL (31.8-35.4); Mean Corpuscular Hemoglobin 32.7 pg (27.0-31.2); Mean Corpuscular Volume 93.3 fl (80-94); Mean Platelet Volume 8.9 fl (7.4-10.4); Monocytes # 0.6 K/mm3 (0.1-1.0); Monocytes % 5.4 % (1.7-9.3); Neutrophils # 8.4 K/mm3 (1.8-7.8); Neutrophils % 77.4 % (37.0-80.0); Platelet Count 163 K/mm3 (142-424); Red Blood Count 4.28 M/mm3 (4.60-6.20); Red Cell Distribution Width 15.2 % (11.5-17.5); White Blood Count 10.8 K/mm3 (4.8-10.8)
[2024-01-03] MEDS: CEFTRIAXONE SODIUM 2 GM in 0.9 % SODIUM CHLORIDE 100 ML IV (08:52)
[2024-01-03] MEDS: CLOPIDOGREL 75MG TAB 75 MG PO (08:52)
[2024-01-03] MEDS: ASPIRIN 81MG CHEWABLE TABLET 81 MG PO (08:52)
[2024-01-03] MEDS: DOCUSATE SODIUM 100 MG CAPSULE PO ×2 (08:52→21:12)
[2024-01-03] MEDS: BUMETANIDE 1 MG TABLET 0.5 MG PO (08:52)
--- NOTE | 2024-01-03 14:46 | HMH.PTEV ---
Physical Therapy Evaluation Rehab PT IP Evaluation Start: 01/03/24 11:11 Freq: ONCE Status: Active Protocol: Document 01/03/24 14:09 GRETTA (Rec: 01/03/24 14:46 GRETTA [id number]) Subjective/History History History Pt is an 88-year-old male with significant history of hypertension, hyperlipidemia, COPD, prior CVA, CAD status post [place] with CABG, on room air at home. He presents w/ chief c/o general weakness. Pt states he lives at home w/ his in a 1 story home. There are stairs to get into the home but pt states he is able to navigate them with use the handrails. He uses a rollator walker to ambulate at home. Reports balance difficulties and weakness. Subjective Subjective Pt presents supine in bed this afternoon. Pt is 3x oriented and denies any pain. Pt c/o general weakness and feelings of being unsteady when walking . He consents to PT services this date. New diagnosis of cancer in past 12 No months? Rehab PT IP Eval Objective Appearance Patient Behavior Appropriate,Cooperative Patient Orientation Person,Place,Birthday Difficulty following instructions none Speech Pattern Clear,Appropriate,Coherent Ambulation Patient Able to Ambulate Yes Ambulation Observation IP General Gait Pattern Observation Shuffling Step Ambulation Distance (feet) 40 Ambulation Assistive Device Rolling Walker Ambulation Ability Minimal x 1 (25% assist) Balance Ability to Arise Able, uses arms to help Sitting Balance Steady, safe Standing Balance Unsteady Dynamic Standing Balance Ability Fair Transfers Bed Transfer Ability Minimal x 1 (25% assist) Sit to Stand Bed Transfer Ability Minimal x 1 (25% assist) Rehab PT IP prob,goals,plan Problems Date of Evaluation: 01/03/24 PT IP Problems Bed Mobility,Transfers,Gait, Balance Rehab Potential Rehab Potential Good Plan PT Intervention Plan Bed Mobility,Transfers,Gait, Balance,Therapeutic Exercise PT Plan Frequency BID Duration LOS Discharge Goals Bed Transfer Ability Contact Guard/Hand Hold Sit to Stand Chair Transfer Ability Contact Guard/Hand Hold Ambulation Assistive Device Rolling Walker Ambulation Distance (feet) 75 Discharge Plan PT Discharge Plan Currently, pt is most appropriate for rehab placement once medically stable for d/c. Observable rigidity in pt posture when performing [id number] transfer. Pt demonstrates decreased strength, balance, and endurance contributing to decreased performance in bed mobility, transfers, and gait. Pt requires verbal cues during transfers and gait for increasing step length, foot clearance, and walker placement. Pt demonstrates a shuffling gait pattern and requires increased steps and time to complete turning task, w/ increased LOB concerns. Utilized portable O2 @ 2L for gait evaluation this date. Additionally, pt exhibits decreased activity tolerance following ambulation. Pt education on placement options and overall performance w/ gait and transfers provided. Eval Complexity Eval Charge Codes 09053 - High Complexity PHYSICIAN CERTIFICATION: I certify the specified therapy services for Junaid Awan are required, authorized, and reviewed every 30 days.
--- NOTE | 2024-01-03 15:15 | SW/DCPLANNER ---
Addendum entered by Anastasia Romano RN 01/05/24 12:44: Patient discharging to SNF bed at [facility] today. Addendum entered by Alanis Barrientos 01/04/24 10:49: Patient is agreeable to placement at [facility]. Plan is for discharge tomorrow SNF level of care. Addendum entered by Alanis Barrientos 01/04/24 07:40: [facility]/ [facility] stated that she can accept this patient on 01/04 for SNF level of care. I will update patient/family and MD. Original Note: I spoke w/ this patient and his daughter regarding plans once medically stable for discharge. PT/OT evaluated patient and recommended SNF level of care. Patient stated that he has been to [facility] in the past and prefers to go back to same facility. Patient information has been faxed to [facility]. Discharge date is unknown at this time.
--- NOTE | 2024-01-03 15:47 | EXP.ACUTE.PN ---
Subjective *Date: 01/03/24 *Time: 21:27 Interval history: Patient feeling somewhat better this morning. Still on 3 L oxygen. Denies any chest pain or worsening shortness of breath. No nausea or vomiting. Complains of feeling weak. Will have therapy evaluate today. Afebrile overnight. Medical Exam Vital signs and Labs for Last 24 Hours: Vital Signs Temp Pulse Pulse Resp BP Pulse Ox O2 Del Method 01/03/24 15:27 97.5 F L 88 16 142/74 H 95 Nasal Cannula 01/03/24 15:00 Nasal Cannula 01/03/24 13:00 Nasal Cannula 01/03/24 12:00 90 01/03/24 11:38 97.8 F 78 19 127/52 L 94 L 01/03/24 11:10 68 01/03/24 11:10 68 01/03/24 11:10 94 L Nasal Cannula 01/03/24 11:00 Nasal Cannula 01/03/24 09:00 Nasal Cannula 01/03/24 08:00 80 01/03/24 08:00 95 Nasal Cannula 01/03/24 08:00 Nasal Cannula 01/03/24 08:00 97.5 F L 78 18 133/65 95 Nasal Cannula 01/03/24 06:38 Nasal Cannula 01/03/24 06:36 65 01/03/24 06:36 69 01/03/24 06:36 92 L Nasal Cannula 01/03/24 05:00 Nasal Cannula 01/03/24 04:00 70 01/03/24 04:00 98.5 F 63 16 127/50 L 91 L Nasal Cannula 01/03/24 03:00 Nasal Cannula 01/03/24 01:00 Nasal Cannula 01/03/24 00:00 80 01/03/24 00:00 98.2 F 72 18 125/46 L 96 Nasal Cannula 01/02/24 23:43 70 01/02/24 23:00 Nasal Cannula 01/02/24 21:00 Nasal Cannula 01/02/24 20:00 60 01/02/24 20:00 Nasal Cannula 01/02/24 20:00 98.0 F 60 16 107/40 L 95 Nasal Cannula 01/02/24 19:05 Nasal Cannula 01/02/24 19:04 77 01/02/24 18:47 Nasal Cannula 01/02/24 16:55 Nasal Cannula 01/02/24 16:00 70 01/02/24 16:00 100.0 F H 73 14 130/54 L 91 L Nasal Cannula O2 Flow Rate FiO2 01/03/24 15:27 3 01/03/24 15:00 2 01/03/24 13:00 2 01/03/24 12:00 01/03/24 11:38 3 01/03/24 11:10 01/03/24 11:10 01/03/24 11:10 3 01/03/24 11:00 3 01/03/24 09:00 3 01/03/24 08:00 01/03/24 08:00 3 01/03/24 08:00 3 01/03/24 08:00 3 01/03/24 06:38 3 01/03/24 06:36 01/03/24 06:36 01/03/24 06:36 3 01/03/24 05:00 3 01/03/24 04:00 01/03/24 04:00 3 01/03/24 03:00 3 01/03/24 01:00 3 01/03/24 00:00 01/03/24 00:00 3 01/02/24 23:43 01/02/24 23:00 3 01/02/24 21:00 3 01/02/24 20:00 01/02/24 20:00 3 01/02/24 20:00 3 01/02/24 19:05 3 32 01/02/24 19:04 01/02/24 18:47 3 01/02/24 16:55 3 01/02/24 16:00 01/02/24 16:00 3 Intake and Output 01/02/24 01/03/24 01/03/24 23:59 07:59 15:59 Intake Total 120 / 630 240 / 510 270 / 510 Output Total 100 / 325 100 / 100 Balance 20 / 305 140 / 410 270 / 410 Intake: Intake, Oral Amount 120 / 630 240 / 510 270 / 510 Output: Output, Urine Amount 100 / 325 100 / 100 Other: Number of Voids 0 Number of Unmeasured Voids 1 0 1 Number of Bowel Movements 1 Weight 65.771 kg Patient Weight 01/03/24 23:59 Weight 65.771 kg Laboratory Results - last 24 hr 01/03/24 06:35: WBC 10.8, RBC 4.28 L, Hgb 14.0 L D, Hct 39.9 L, MCV 93.3, MCH 32.7 H, MCHC 35.1, RDW 15.2, Plt Count 163, MPV 8.9, Neut % (Auto) 77.4, Lymph % (Auto) 16.5, [place] % (Auto) 5.4, Eos % (Auto) 0.2, Baso % (Auto) 0.5, Neut # (Auto) 8.4 H, Lymph # (Auto) 1.8, [place] # (Auto) 0.6, Eos # (Auto) 0.0, Baso # (Auto) 0.1, Sodium 136, Potassium 3.5, Chloride 107, Carbon Dioxide 21 L, Anion Gap 11.5, BUN 14, Creatinine 0.80, Estimated Creat Clear 49, Estimated GFR 92, Est GFR ( Amer) 111 D, Glucose 102 H D, Calcium 8.7, Magnesium 1.9, Total Bilirubin 1.1, AST 26, ALT 17 D, Alkaline Phosphatase 63, Total Protein 6.4, Albumin 3.5 D, Globulin 2.9, Albumin/Globulin Ratio 1.2 I & O for Labs for Last 24 Hours: Intake & Output 12/31/23 01/01/24 01/02/24 01/03/24 22:59 23:59 23:59 23:59 Intake Total 390 / 630 510 / 510 Output Total 325 / 325 100 / 100 Balance 65 / 305 410 / 410 Weight 65.771 kg 65.771 kg Microbiology Reports for the Last 24 Hours: Microbiology 01/02/24 12:10 Sputum - Expectorated Sputum Gram Stain - Final 01/02/24 12:10 Sputum - Expectorated Sputum Sputum Culture - Preliminary 01/02/24 09:30 Blood Blood Culture - Preliminary NO GROWTH AFTER 24 HOURS 01/02/24 09:40 Blood Blood Culture - Preliminary NO GROWTH AFTER 24 HOURS Constitutional: Present no acute distress, average body habitus and chronically ill appearing Head: Present atraumatic and normocephalic ENT: Present normal exam Neck: Present normal inspection Respiratory: Present wheezes, crackles (bases) and normal respiratory effort; Absent accessory muscle use or rhonchi Cardiac: Present Reg Rate and Rhythm and No Murmur GI: Present soft and normal bowel sounds; Absent distention or tenderness Rectal (male): Present deferred Extremities: Present normal inspection and full ROM; Absent edema Skin: Present intact; Absent erythema Neuro: Present Grossly Intact, alert, awake, oriented x 3 and moves all extremities Assessment and Plan *Assessment and plan (1) Sepsis due to pneumonia: Status: Acute Category: Medical Code(s): J18.9 - Pneumonia, unspecified organism; A41.9 - Sepsis, unspecified organism (2) Respiratory failure: Status: Acute Category: Medical Code(s): J96.90 - Respiratory failure, unspecified, unspecified whether with hypoxia or hypercapnia (3) Emphysematous COPD: Status: Acute Qualifiers: Emphysema type: other Qualified Code(s): J43.8 - Other emphysema Category: Medical Code(s): J43.9 - Emphysema, unspecified (4) Hypertension: Status: Acute Category: Medical Code(s): I10 - Essential (primary) hypertension (5) Hyperlipidemia: Status: Acute Category: Medical Code(s): E78.5 - Hyperlipidemia, unspecified (6) Chronic back pain: Status: Acute Category: Medical Code(s): M54.9 - Dorsalgia, unspecified; G89.29 - Other chronic pain (7) Debility: Status: Acute Category: Medical Code(s): R53.81 - Other malaise Plan 88-year-old male with history of CABG, COPD, on room air at home. Presents with new oxygen requirement and finding of pneumonia. Meeting sepsis criteria on admission with tachycardia, tachypnea, leukocytosis, pneumonia on imaging. Discussed case with ER physician, request admission for antibiotics and further treatment of his pneumonia and respiratory failure. I agreed to admit for further care. Continues to require 3 L oxygen. PSI/port score of 126, class IV risk. Necessitates inpatient admission. Problems addressed as follows: Acute hypoxemic respiratory failure Sepsis Left lower lobe pneumonia -Sepsis and PSI/port score as above. Continue broad-spectrum antibiotics with Rocephin 2 g daily IV. -Sputum and blood cultures obtained and pending. -White count with some improvement at 10.8. repeat CBC, CMP, magnesium ordered for the morning. Kidney function normal with BUN 14, creatinine 0.8. Magnesium 1.9, potassium 3.5. -Continue supplemental oxygen for goal sats greater 90%. Currently on 3L. - Per my review of chest CT, has left lower lobe consolidation. No effusion. Findings consistent with pneumonia. -COVID and flu negative. - continue Tylenol 650 mg as needed every 4-6 hours for fever or pain -Budesonide0.5 mg twice daily, DuoNebs every 6 hours scheduled. -On CT of chest, also noted to have subsegmental PE. Continue Lovenox therapeutically 1 mg/kg twice daily. Transition to oral NOAC tomorrow Constipation: No bowel movement in a week. Bisacodyl suppository once with docusate/senna twice daily scheduled Elevated troponin -Denies any chest pain. Initial troponin 0.06, elevated to 0.2. In the setting of no chest pain and no ischemic changes on EKG, suspect supply/demand mismatch given severity of illness. CAD: Continue Plavix 75 mg daily, aspirin 80 g daily, hold blood pressure meds in the setting of sepsis and normotensive state. Full code Therapeutic Lovenox 65 mg subcu twice daily
[2024-01-03] MEDS: CALCIUM CARBONATE 500MG CHEWTAB 500 MG PO (16:58)
[2024-01-03] MEDS: ENOXAPARIN 80MG/0.8ML SYRINGE 65 MG SUBCUT (17:53)
--- NOTE | 2024-01-03 17:59 | PC.NURSE ---
A&OX4. [id number] AT THIS TIME, WILL CONTINUE TO WEAN TOLERATED. HAS HAD FAMILY AT BEDSIDE T/O SHIFT. THEY HELP WITH HIS CARE. PATIENT HAS BEEN UP TO THE BATHROOM WITH WALKER AND X1 ASSIST. TOLERATES WELL BUT IS UNSTEADY. ONLY COMPLAINT THIS SHIFT IS HEARTBURN, MEDICATED PER MAR-EFFECTIVENESS NOTED. ANTIBIOTIC RECEIVED THIS SHIFT. NO OTHER NEEDS OR C/O NOTED, PATIENT IS VERY PLEASANT. VSS.
[2024-01-03] MEDS: PANTOPRAZOLE 40MG VIAL 40 MG IV (21:12)
[2024-01-03] MEDS: SODIUM CHLORIDE 0.9% 10ML VIAL 10 ML IV (21:12)
--- NOTE | 2024-01-03 21:32 | PC.NURSE ---
Addendum entered by Harvinder Jj RN 01/04/24 06:41: patient is unable to tolerate RA sat testing Addendum entered by Harvinder Jj RN 01/04/24 05:49: 0255 patient increased to 2L NC maintaining at 90% Original Note: patient on 1.5L NC maintaining at 90%
--- OUTSIDE RECORDS SUMMARY | 2024-01-03 22:26 | XMS_ITS ---
Author Organization Unknown ALLERGIES AND ADVERSE REACTIONS No information ASSESSMENT No information CHIEF COMPLAINT No information Immunizations Date Vaccine Dateadministered Timeadministered Vaccinecode Dose Unit Duedate Cptcode Cvxcode Administeredby 11/14 00:00 :00 FLUZONE HD QUAD 11/15/2023 08:11:00 08:11:00 [id number] 0.5 mg 08/27/19 00:00:00 [id number] PHILIP REYES OBJECTIVE DATA No information PHYSICAL EXAMINATION No information TREATMENT PLAN No information PROBLEMS No information RESULTS No information REVIEW OF SYSTEMS No information SUBJECTIVE DATA No information VITAL SIGNS No information MEDICATIONS No information
--- OUTSIDE RECORDS SUMMARY | 2024-01-03 22:27 | XMS_ITS ---
Author Organization [facility] ALLERGIES AND ADVERSE REACTIONS No information ASSESSMENT No information CHIEF COMPLAINT No information Vital Signs Bpsitting Date Temperature Heartrate Weight Height Spo2 Bmi Fiel dcount Timerecorded 162/72 2023-0 6-19 98.0 78 152,0 5,7 92 23.8 7 08:00 122/60 2023-0 4-03 98.6 71 150,0 5,7 91 23.4 9 7 15:00 156/60 2023-0 3-19 97.8 72 150,0 5,7 91 23.4 9 7 09:45 102/58 2022-02 2-20 97.3 88 148,0 5,7 96 23.1 8 7 15:15 144/54 1 1-21 97.5 72 148,0 5,7 92 23.1 8 7 08:00 null 2022-1 0-25 null null 144,0 5,7 null 22.5 5 3 10:30 110/70 1 0-03 97.4 null 150,0 5,7 null 23.4 9 5 08:30 142/80 2022-0 8-23 98.0 null 148,0 5,7 null 23.1 8 5 08:00 OBJECTIVE DATA No information PHYSICAL EXAMINATION No information TREATMENT PLAN No information PROBLEMS No information RESULTS No information REVIEW OF SYSTEMS No information SUBJECTIVE DATA No information MEDICATIONS No information
[2024-01-04] VITALS (14 sets, daily range): BP systolic 128–158; BP diastolic 53–73; PULSE 70–104; RESP 16–18; TEMP 36.6–37.1; O2SAT 78–99; BMI 23.3
[2024-01-04] MEDS: IPRATROPIUM/ALBUTEROL 3 ML NEB IH ×4 (00:04→19:20)
[2024-01-04] MEDS: FLUTICASONE/UMECLIDIN/VILANTER 100/62.5/25MCG INHALER 1 PUFF IH (06:01)
[2024-01-04] MEDS: ENOXAPARIN 80MG/0.8ML SYRINGE 65 MG SUBCUT (06:14)
[2024-01-04 07:05] LABS: Basophils % 0.3 % (0.1-2.0); Eosinophils # 0.1 K/mm3 (0.0-0.4); Eosinophils % 0.9 % (0.1-12.0); Hematocrit 40.8 % (42.0-52.0); Lymphocytes # 1.3 K/mm3 (0.7-4.5); Lymphocytes % 15.9 % (10-50); Mean Corpuscular HGB Conc 34.3 g/dL (31.8-35.4); Mean Corpuscular Hemoglobin 31.6 pg (27.0-31.2); Mean Corpuscular Volume 92.1 fl (80-94); Mean Platelet Volume 8.6 fl (7.4-10.4); Monocytes # 0.4 K/mm3 (0.1-1.0); Monocytes % 4.6 % (1.7-9.3); Neutrophils # 6.5 K/mm3 (1.8-7.8); Neutrophils % 78.3 % (37.0-80.0); Platelet Count 164 K/mm3 (142-424); Red Blood Count 4.42 M/mm3 (4.60-6.20); Red Cell Distribution Width 15.3 % (11.5-17.5); White Blood Count 8.3 K/mm3 (4.8-10.8)
[2024-01-04 07:14] LABS: Alanine Aminotransferase 16 U/L (12-78); Albumin Level 3.6 g/dl (3.5-5.0); Albumin/Globulin Ratio 1.2 (1.1-1.8); Alkaline Phosphatase 64 U/L (38-126); Anion Gap 11.2 mEq/L (5-15); Aspartate Amino Transferase 29 U/L (17-59); Bilirubin,Total 0.9 mg/dl (0.2-1.3); Blood Urea Nitrogen 10 mg/dl (9-20); Calcium 8.8 mg/dl (8.4-10.2); Carbon Dioxide 24 mmol/L (22.0-30.0); Chloride 106 mmol/L (98-107); Creatinine Clearance Estimated 49 mL/min (50-200); Estimated Glomerular Filt Rate 107 ml/min (>60); GFR (African American) 129 ML/MIN (>60); Globulin 2.9 g/dL (1.3-3.2); Glucose 103 mg/dl (74-100); Magnesium 1.9 mg/dl (1.6-2.3); Potassium 3.2 mmoL/L (3.5-5.1); Sodium 138 mmol/L (136-145); Total Protein,Serum 6.5 g/dl (6.3-8.2)
[2024-01-04] MEDS: DOCUSATE SODIUM 100 MG CAPSULE PO ×2 (08:23→20:33)
[2024-01-04] MEDS: CLOPIDOGREL 75MG TAB 75 MG PO (08:23)
[2024-01-04] MEDS: BUMETANIDE 1 MG TABLET 0.5 MG PO (08:23)
[2024-01-04] MEDS: ASPIRIN 81MG CHEWABLE TABLET 81 MG PO (08:23)
[2024-01-04] MEDS: CEFTRIAXONE SODIUM 2 GM in 0.9 % SODIUM CHLORIDE 100 ML IV (08:24)
[2024-01-04] MEDS: POTASSIUM CHLORIDE 20MEQ TAB 40 MEQ PO ×3 (09:06→20:33)
--- NOTE | 2024-01-04 09:52 | HMH.OTEV ---
OT Inpatient Evaluation Rehab OT IP Evaluation Start: 01/03/24 11:11 Freq: ONCE Status: Active Protocol: Document 01/04/24 09:39 RUBYSUNNY (Rec: 01/04/24 09:51 BAHMAN [id number]) Rehab OT IP Assessment Subjective History Mr. Awan is an 88-year-old male with significant history of hypertension, hyperlipidemia, COPD, prior CVA, CAD status post ND with CABG, on room air at home. Who presented to the ER with complaint of general weakness. This is progressed over the past 24 to 48 hours. States he began feeling worse yesterday and having productive cough. held his blood pressure meds because she was concerned about his weakness but otherwise has been taking his medications as prescribed. Denies any chest pain. Cough productive for thick yellow mucus. He got more weak this morning and was unable to get out of bed. She was concerned because last time he felt this bad he had acute heart failure. Also reports he has not had a bowel movement in almost a week workup in the ER concerning for left lower lobe pneumonia with new oxygen requirement.. Due to significance of symptoms and new oxygen requirement, medicine consulted for admission and further management. On my evaluation, patient states he came to the ER via EMS. Family at bedside. Reports he is feeling marginally better after getting fluids and antibiotics . Initially was tachycardic, tachypneic, elevated white count, and pneumonia. Meeting sepsis criteria. Has been having reflux but denies any shweta emesis. Alert and oriented x 3 on exam. Patient lives with who assist with ADLs and fx'l mobility as needed. RW needed for fx'l mobility. Subjective I can get up. Instructed Patient on safety awareness to complete bed mobility, transfers, fx'l mobility requiring Min/Mod A due to unsteadiness on feet. Objective Patient Orientation Person,Name Right Upper Extremity Gross ROM WFL Left Upper Extremity Gross ROM WFL Bed Mobility bed mobility - supine/sit Assist Level Minimal x 1 (25% assist) Transfer Training Sit/Stand/Pivot Transfer Assist Level Minimal x 1 (25% assist) Chair Transfer Ability Minimal x 1 (25% assist) Chair Transfer Technique Sit to/from Ambulatory Rehab OT IP prob,goals,plan Problems Date of Evaluation: 01/04/24 OT IP Problems Bed Mobility,Transfers,Balance ,Self care,Safety Rehab Potential Rehab Potential Good Equipment Needs Assistive Devices Rolling / Wheeled Walker Plan OT intervention Plan Bed Mobility,Transfers,Balance ,Self care,Safety,Therapeutic Exercise OT Plan Frequency Daily Duration LOS Discharge Goals Bed Mobility Ability Standby Assistance Sit to Stand Chair Transfer Ability Contact Guard/Hand Hold Chair Transfer Ability Contact Guard/Hand Hold Chair Transfer Technique Sit to/from Ambulatory Chair Transfer Assistive Devices Rolling Walker Discharge Plan OT Discharge Plan Recommend placement in order for patient to improve fx'l mobility and ADLs prior to returning home. Eval Complexity Eval Charge Codes 13574 - Low Complexity PHYSICIAN CERTIFICATION: I certify the specified therapy services for Junaid Awan SR are required, authorized, and reviewed every 30 days.
--- NOTE | 2024-01-04 09:55 | HMH.OTEV ---
OT Inpatient Evaluation Rehab OT IP Evaluation Start: 01/03/24 11:11 Freq: ONCE Status: Active Protocol: Document 01/04/24 09:39 RUBYSUNNY (Rec: 01/04/24 09:51 BAHMAN [id number]) Rehab OT IP Assessment Subjective History Mr. Awan is an 88-year-old male with significant history of hypertension, hyperlipidemia, COPD, prior CVA, CAD status post [place] with CABG, on room air at home. Who presented to the ER with complaint of general weakness. This is progressed over the past 24 to 48 hours. States he began feeling worse yesterday and having productive cough. held his blood pressure meds because she was concerned about his weakness but otherwise has been taking his medications as prescribed. Denies any chest pain. Cough productive for thick yellow mucus. He got more weak this morning and was unable to get out of bed. She was concerned because last time he felt this bad he had acute heart failure. Also reports he has not had a bowel movement in almost a week workup in the ER concerning for left lower lobe pneumonia with new oxygen requirement.. Due to significance of symptoms and new oxygen requirement, medicine consulted for admission and further management. On my evaluation, patient states he came to the ER via EMS. Family at bedside. Reports he is feeling marginally better after getting fluids and antibiotics . Initially was tachycardic, tachypneic, elevated white count, and pneumonia. Meeting sepsis criteria. Has been having reflux but denies any shweta emesis. Alert and oriented x 3 on exam. Patient lives with who assist with ADLs and fx'l mobility as needed. RW needed for fx'l mobility. Subjective I can get up. Instructed Patient on safety awareness to complete bed mobility, transfers, fx'l mobility requiring Min/Mod A due to unsteadiness on feet. Objective Patient Orientation Person,Name Right Upper Extremity Gross ROM WFL Left Upper Extremity Gross ROM WFL Bed Mobility bed mobility - supine/sit Assist Level Minimal x 1 (25% assist) Transfer Training Sit/Stand/Pivot Transfer Assist Level Minimal x 1 (25% assist) Chair Transfer Ability Minimal x 1 (25% assist) Chair Transfer Technique Sit to/from Ambulatory Rehab OT IP prob,goals,plan Problems Date of Evaluation: 01/04/24 OT IP Problems Bed Mobility,Transfers,Balance ,Self care,Safety Rehab Potential Rehab Potential Good Equipment Needs Assistive Devices Rolling / Wheeled Walker Plan OT intervention Plan Bed Mobility,Transfers,Balance ,Self care,Safety,Therapeutic Exercise OT Plan Frequency Daily Duration LOS Discharge Goals Bed Mobility Ability Standby Assistance Sit to Stand Chair Transfer Ability Contact Guard/Hand Hold Chair Transfer Ability Contact Guard/Hand Hold Chair Transfer Technique Sit to/from Ambulatory Chair Transfer Assistive Devices Rolling Walker Discharge Plan OT Discharge Plan Recommend placement in order for patient to improve fx'l mobility and ADLs prior to returning home. Eval Complexity Eval Charge Codes 99975 - Low Complexity PHYSICIAN CERTIFICATION: I certify the specified therapy services for Junaid Awan SR are required, authorized, and reviewed every 30 days.
--- NOTE | 2024-01-04 13:38 | EXP.ACUTE.PN ---
Subjective *Date: 01/04/24 *Time: 19:49 Interval history: Feeling somewhat better. Patient unsure about placement but understands he is very weak. He is worried mainly about his being by herself. Denies any chest pain. Productive cough improving. No nausea or vomiting. Tolerating p.o. intake. Oxygen weaned to 2 L. Medical Exam Vital signs and Labs for Last 24 Hours: Vital Signs Temp Pulse Pulse Resp BP Pulse Ox O2 Del Method 01/04/24 11:26 98.2 F 83 18 158/69 H 99 Nasal Cannula 01/04/24 11:19 77 01/04/24 11:19 77 01/04/24 08:00 98.0 F 85 18 143/63 H 89 L Room Air 01/04/24 06:40 Nasal Cannula 01/04/24 06:03 70 01/04/24 06:03 70 01/04/24 06:03 90 L Nasal Cannula 01/04/24 05:00 Room Air 01/04/24 04:00 98.4 F 76 18 155/73 H 93 L Nasal Cannula 01/04/24 04:00 70 01/04/24 03:00 Nasal Cannula 01/04/24 02:55 90 L Nasal Cannula 01/04/24 02:53 86 L Nasal Cannula 01/04/24 01:00 Nasal Cannula 01/04/24 00:04 77 01/04/24 00:04 75 01/04/24 00:00 90 L Nasal Cannula 01/04/24 00:00 98.8 F 84 16 128/53 L 90 L Nasal Cannula 01/03/24 23:00 Nasal Cannula 01/03/24 21:00 Nasal Cannula 01/03/24 20:00 90 01/03/24 20:00 Nasal Cannula 01/03/24 20:00 98.5 F 85 16 140/76 93 L Nasal Cannula 01/03/24 18:31 Nasal Cannula 01/03/24 18:24 88 01/03/24 18:24 85 01/03/24 18:24 91 L Nasal Cannula 01/03/24 17:00 Nasal Cannula 01/03/24 16:00 95 Nasal Cannula 01/03/24 16:00 100 H 01/03/24 15:27 97.5 F L 88 16 142/74 H 95 Nasal Cannula 01/03/24 15:00 Nasal Cannula O2 Flow Rate 01/04/24 11:26 2 01/04/24 11:19 01/04/24 11:19 01/04/24 08:00 01/04/24 06:40 2 01/04/24 06:03 01/04/24 06:03 01/04/24 06:03 2 01/04/24 05:00 01/04/24 04:00 2 01/04/24 04:00 01/04/24 03:00 2 01/04/24 02:55 2 01/04/24 02:53 1.5 01/04/24 01:00 1.5 01/04/24 00:04 01/04/24 00:04 01/04/24 00:00 1.5 01/04/24 00:00 1.5 01/03/24 23:00 1.5 01/03/24 21:00 1.5 01/03/24 20:00 01/03/24 20:00 1.5 01/03/24 20:00 1.5 01/03/24 18:31 2 01/03/24 18:24 01/03/24 18:24 01/03/24 18:24 2 01/03/24 17:00 2 01/03/24 16:00 2 01/03/24 16:00 01/03/24 15:27 3 01/03/24 15:00 2 Intake and Output 01/03/24 01/04/24 01/04/24 23:59 07:59 15:59 Intake Total 500 / 1590 240 / 660 420 / 660 Output Total 200 / 300 500 / 500 Balance 300 / 1290 -260 / 160 420 / 160 Intake: Intake, Oral Amount 400 / 1490 240 / 660 420 / 660 Intake, Total IV Amount 100 / 100 Ceftriaxone Sodium 2 gm In 0.9 100 / 100 % Sodium Chloride 100 ml @ 200 mls/hr IV Q24H [facility] Rx#:[id number] Output: Output, Urine Amount 200 / 300 500 / 500 Other: Number of Unmeasured Voids 1 Weight 65.862 kg Patient Weight 01/04/24 23:59 Weight 65.862 kg Laboratory Results - last 24 hr 01/04/24 06:09: WBC 8.3, RBC 4.42 L, Hgb 14.0 L, Hct 40.8 L, MCV 92.1, MCH 31.6 H, MCHC 34.3, RDW 15.3, Plt Count 164, MPV 8.6, Neut % (Auto) 78.3, Lymph % (Auto) 15.9, [place] % (Auto) 4.6, Eos % (Auto) 0.9, Baso % (Auto) 0.3, Neut # (Auto) 6.5, Lymph # (Auto) 1.3, [place] # (Auto) 0.4, Eos # (Auto) 0.1, Baso # (Auto) 0.0, Sodium 138, Potassium 3.2 L, Chloride 106, Carbon Dioxide 24, Anion Gap 11.2, BUN 10 D, Creatinine 0.70, Estimated Creat Clear 49, Estimated GFR 107, Est GFR ( Amer) 129, Glucose 103 H, Calcium 8.8, Magnesium 1.9, Total Bilirubin 0.9, AST 29, ALT 16, Alkaline Phosphatase 64, Total Protein 6.5, Albumin 3.6, Globulin 2.9, Albumin/Globulin Ratio 1.2 I & O for Labs for Last 24 Hours: Intake & Output 01/01/24 01/02/24 01/03/24 01/04/24 23:59 23:59 23:59 23:59 Intake Total 390 / 630 1350 / 1590 660 / 660 Output Total 325 / 325 300 / 300 500 / 500 Balance 65 / 305 1050 / 1290 160 / 160 Weight 65.771 kg 65.771 kg 65.862 kg Microbiology Reports for the Last 24 Hours: Microbiology 01/02/24 09:40 Blood Blood Culture - Preliminary NO GROWTH AFTER 48 HOURS 01/02/24 09:30 Blood Blood Culture - Preliminary NO GROWTH AFTER 48 HOURS 01/02/24 12:10 Sputum - Expectorated Sputum Gram Stain - Final 01/02/24 12:10 Sputum - Expectorated Sputum Sputum Culture - Final Constitutional: Present no acute distress, average body habitus and chronically ill appearing Head: Present atraumatic and normocephalic ENT: Present normal exam Neck: Present normal inspection Respiratory: Present wheezes, crackles (bases) and normal respiratory effort; Absent accessory muscle use or rhonchi Cardiac: Present Reg Rate and Rhythm and No Murmur GI: Present soft and normal bowel sounds; Absent distention or tenderness Rectal (male): Present deferred Extremities: Present normal inspection and full ROM; Absent edema Skin: Present intact; Absent erythema Neuro: Present Grossly Intact, alert, awake, oriented x 3 and moves all extremities Assessment and Plan *Assessment and plan (1) Sepsis due to pneumonia: Status: Acute Category: Medical Code(s): J18.9 - Pneumonia, unspecified organism; A41.9 - Sepsis, unspecified organism (2) Respiratory failure: Status: Acute Category: Medical Code(s): J96.90 - Respiratory failure, unspecified, unspecified whether with hypoxia or hypercapnia (3) Emphysematous COPD: Status: Acute Qualifiers: Emphysema type: other Qualified Code(s): J43.8 - Other emphysema Category: Medical Code(s): J43.9 - Emphysema, unspecified (4) Hypertension: Status: Acute Category: Medical Code(s): I10 - Essential (primary) hypertension (5) Hyperlipidemia: Status: Acute Category: Medical Code(s): E78.5 - Hyperlipidemia, unspecified (6) Chronic back pain: Status: Acute Category: Medical Code(s): M54.9 - Dorsalgia, unspecified; G89.29 - Other chronic pain (7) Debility: Status: Acute Category: Medical Code(s): R53.81 - Other malaise Plan 88-year-old male with history of CABG, COPD, on room air at home. Presents with new oxygen requirement and finding of pneumonia. Meeting sepsis criteria on admission with tachycardia, tachypnea, leukocytosis, pneumonia on imaging. Discussed case with ER physician, request admission for antibiotics and further treatment of his pneumonia and respiratory failure. I agreed to admit for further care. Continues to require 3 L oxygen. PSI/port score of 126, class IV risk. Necessitates inpatient admission. Showing improvement. Has been evaluated for placement, would benefit from rehab. Problems addressed as follows: Acute hypoxemic respiratory failure Sepsis Left lower lobe pneumonia -Sepsis and PSI/port score as above. Continue broad-spectrum antibiotics with Rocephin 2 g daily IV. -Sputum culture with gram-positive cocci, blood cultures negative to date. -White count remains normal at 8.3. Repeat CBC, CMP, magnesium ordered for the morning. Kidney function normal with BUN 10, creatinine 0.7. -Room air saturation of 78% at rest. Will necessitate supplemental oxygen at discharge. - Continue supplemental oxygen for goal sats greater 90%. Currently on 2L. - continue Tylenol 650 mg as needed every 4-6 hours for fever or pain -Budesonide 0.5 mg twice daily, DuoNebs every 6 hours scheduled. -On CT of chest, also noted to have subsegmental PE. Transition to Eliquis today, discontinue Lovenox Constipation: No bowel movement in a week. Bisacodyl suppository once with docusate/senna twice daily scheduled Elevated troponin -Denies any chest pain. Initial troponin 0.06, elevated to 0.2. In the setting of no chest pain and no ischemic changes on EKG, suspect supply/demand mismatch given severity of illness. CAD: Continue Plavix 75 mg daily, discontinue aspirin daily, hold blood pressure meds in the setting of sepsis and normotensive state. Full code Eliquis regular diet
[2024-01-04] MEDS: APIXABAN 5MG TABLET 10 MG PO (18:44)
[2024-01-04] MEDS: PANTOPRAZOLE 40MG VIAL 40 MG IV (20:33)
[2024-01-04] MEDS: SODIUM CHLORIDE 0.9% 10ML VIAL 10 ML IV (20:33)
--- NOTE | 2024-01-04 23:07 | ECG_ITS ---
APPROVED REPORT Exam: Resting ECG HR:88 bpm ECG Measurements Heart Rate 88 AXES WV 289 P 79 QRSd 133 QRS -2 QT 380 T 69 QTc 425 Conclusion SINUS RHYTHM WITH FIRST DEGREE AV BLOCK RIGHT BUNDLE BRANCH BLOCK [120+ ms QRS DURATION, UPRIGHT V1, 40+ ms S IN I/aVL/V4/V5/V6] ST DEVIATION AND MARKED T-WAVE ABNORMALITY, CONSIDER ANTERIOR ISCHEMIA [-0.5+ mV T-WAVE IN V3/V4] ABNORMAL ECG INTERPRETATION BASED ON A DEFAULT AGE OF 40 YEARS UNCONFIRMED REPORT Electronically signed by : Luis Pascual MD 01/07/2024 12:51:32
--- NOTE | 2024-01-04 23:27 | P.PN_ITS ---
Subjective *Date: 01/05/24 *Time: 00:36 Interval history: Nursing notified me that her been a change in the patient's mentation.. Nursing said he is usually more bright alert answering everything well has been sleeping got up out of bed going to go to the bathroom then peed on himself. Nursing noting that he A6 experiencing what appears to be great fatigue, kind of hard to stay awake.. Patient noted no chest pain or no increased shortness of breath.. There are no significant vital sign changes. Exam Data for Last 24 hours Vital signs and Labs for Last 24 Hours: Temp Pulse Resp BP Pulse Ox O2 Del Method O2 Flow Rate 97.9 F 102 H 18 136/63 92 L Nasal Cannula 2 01/04/24 20:00 01/04/24 20:00 01/04/24 20:00 01/04/24 20:00 01/04/24 20:00 01/04/24 21:00 01/04/24 21:00 FiO2 32 01/02/24 19:05 Laboratory Results - last 24 hr 01/04/24 06:09: WBC 8.3, RBC 4.42 L, Hgb 14.0 L, Hct 40.8 L, MCV 92.1, MCH 31.6 H, MCHC 34.3, RDW 15.3, Plt Count 164, MPV 8.6, Neut % (Auto) 78.3, Lymph % (Auto) 15.9, [place] % (Auto) 4.6, Eos % (Auto) 0.9, Baso % (Auto) 0.3, Neut # (Auto) 6.5, Lymph # (Auto) 1.3, [place] # (Auto) 0.4, Eos # (Auto) 0.1, Baso # (Auto) 0.0, Sodium 138, Potassium 3.2 L, Chloride 106, Carbon Dioxide 24, Anion Gap 11.2, BUN 10 D, Creatinine 0.70, Estimated Creat Clear 49, Estimated GFR 107, Est GFR ( Amer) 129, Glucose 103 H, Calcium 8.8, Magnesium 1.9, Total Bilirubin 0.9, AST 29, ALT 16, Alkaline Phosphatase 64, Total Protein 6.5, Albumin 3.6, Globulin 2.9, Albumin/Globulin Ratio 1.2 I & O for Last 24 hours: Intake & Output 01/01/24 01/02/24 01/03/24 01/04/24 23:59 23:59 23:59 23:59 Intake Total 390 / 630 1350 / 1590 1020 / 1020 Output Total 325 / 325 300 / 300 600 / 600 Balance 65 / 305 1050 / 1290 420 / 420 Weight 65.771 kg 65.771 kg 65.862 kg Microbiology Reports for the Last 24 Hours: Microbiology 01/02/24 09:40 Blood Blood Culture - Preliminary NO GROWTH AFTER 48 HOURS 01/02/24 09:30 Blood Blood Culture - Preliminary NO GROWTH AFTER 48 HOURS 01/02/24 12:10 Sputum - Expectorated Sputum Gram Stain - Final 01/02/24 12:10 Sputum - Expectorated Sputum Sputum Culture - Final Constitutional Constitutional: mild distress, thin and chronically ill appearing *Routine HEENT Exam Head: Present normocephalic and atraumatic Eye: Present EOMI and PERRL *Routine Neck Exam Neck: Present supple Routine Chest/Breast/Axilla Exam Comments: Equal expansion bilaterally on chest no signs of injury no sign of pain *Routine Respiratory Exam Respiratory: Present accessory muscle use, decreased breath sounds, able to speak in complete sentences and symmetric chest movement *Routine Cardiovascular Exam Cardiovascular: Present RRR Comments: Twelve-lead done showing right bundle branch block and 1st degree AV block *Routine Abdominal Exam Abdominal: Present soft and normoactive bowel sounds Comments: No nausea no signs of pain on exam *Routine Extremities Exam Comments: Able to move all extremities well Routine Back/Spine/Pelvis Exam Back/Spine: Present full ROM Comments: Patient was standing and walking without difficulty before being put back to bed *Routine Skin Exam Skin: Present intact and warm Comments: Slightly pale but with brisk capillary refill in both hands nailbeds, no edema in the lower extremities *Routine Neurological Exam Neurological: Present alert Comments: Patient appears to be somnolent but does follow commands well knows who he is and where he is at. Besides being terribly fatigued he has expressed no signs of pain or shortness of breath Routine Psychiatric Exam Psychiatric: Present cooperative Assessment and Plan *Assessment and plan (1) Altered mental status, unspecified: Status: Acute Category: Medical Code(s): R41.82 - Altered mental status, unspecified (2) Unusual change in behavior: Status: Acute Category: Medical Code(s): R46.89 - Other symptoms and signs involving appearance and behavior (3) Hypoxemia: Status: Acute Category: Medical Code(s): R09.02 - Hypoxemia (4) Weakness: Status: Acute Category: Medical Code(s): R53.1 - Weakness (5) Urinary incontinence: Status: Acute Category: Medical Code(s): R32 - Unspecified urinary incontinence Plan plan: I examined the patient he does appear to be somnolent keeping his eyes closed most of the time but does follow commands with no sign of any weakness to limbs , no acute signs of CVA. [employer] Maker strength normal in both upper extremities. Will order ABG due to his respiratory problems making sure there is no pH discrepancies. .He continues to be on 2 L sats have been running 92 %. Did examine EKG no acute findings will await for ABG findings and then decide if labs need to be drawn. ABG showed,. low O2 sats with increased p I question whether the patient became hypoxic while sleeping that is why there was a change in behavior and mentation . Respiratory have started CPAP at low level . Patient appears to be sleeping well without any discomfort at this time. . Will repeat ABG in the morning. Then reevaluate if transfer can continue or whether patient will need to be monitored because of this event and see if CPAP would be appropriate to keep pH and O2 saturations at acceptable levels .
[2024-01-04 23:39] LABS: ABG Base Excess -0.4 mmol/L (-2.4-2.3); ABG HCO3 22.7 mmhg (22.0-26.0); ABG Oxygen Saturation 87 % (90-100); ABG PCO2 29.6 mmhg (35.0-45.0); ABG TCO2 23.6 mmhg (23-27); Allen's Test Non Applicable; Oxygen 2LNC %
[2024-01-04 23:40] LABS: Source Left Brachial
[2024-01-04 23:44] LABS: ABG PO2 44.5 mmhg (80-100)
[2024-01-05] VITALS: BP 150/68; PULSE 81; PULSE 92; RESP 18; TEMP 38.1; O2SAT 96
--- NOTE | 2024-01-05 00:18 | PC.NURSE ---
SRNA informed this RN that patient seemed disoriented . upon assessment, pt answered orientation questions correctly. BUNG DRIVER was notified of pt change in status. EKG,ABG, and assessment performed. vital signs had no changes noted. EKG had no changes noted. pt denied chest pain. no facial droop or extremity weakness noted. respiratory was called to place pt on cpap per BUNG DRIVER. BUNG DRIVER said to believe this was a hypoxic episode . no new orders at this time.
[2024-01-05] MEDS: IPRATROPIUM/ALBUTEROL 3 ML NEB IH ×2 (00:21→06:35)
[2024-01-05 00:22] VITALS: PULSE 86; PULSE 89; RESP 22
[2024-01-05 00:45] VITALS: O2SAT 92
[2024-01-05] MEDS: POTASSIUM CHLORIDE 20MEQ TAB 40 MEQ PO ×2 (01:09→04:21)
[2024-01-05] MEDS: MAGNESIUM SULFATE IN WATER 2 GM/50 ML PIGGYBACK IV (01:09)
[2024-01-05] MEDS: ACETAMINOPHEN 325MG TAB 650 MG PO (01:32)
[2024-01-05 02:02] VITALS: TEMP 37.2
[2024-01-05 04:00] VITALS: BP 109/62; PULSE 60; RESP 18; TEMP 37.1; O2SAT 93
[2024-01-05] MEDS: FLUTICASONE/UMECLIDIN/VILANTER 100/62.5/25MCG INHALER 1 PUFF IH (06:37)
[2024-01-05 06:48] LABS: Alanine Aminotransferase 19 U/L (12-78); Albumin Level 3.3 g/dl (3.5-5.0); Albumin/Globulin Ratio 1.1 (1.1-1.8); Alkaline Phosphatase 59 U/L (38-126); Anion Gap 12.4 mEq/L (5-15); Aspartate Amino Transferase 33 U/L (17-59); Bilirubin,Total 0.8 mg/dl (0.2-1.3); Blood Urea Nitrogen 14 mg/dl (9-20); Calcium 8.5 mg/dl (8.4-10.2); Carbon Dioxide 21 mmol/L (22.0-30.0); Chloride 108 mmol/L (98-107); Creatinine Clearance Estimated 17 mL/min (50-200); Estimated Glomerular Filt Rate 92 ml/min (>60); GFR (African American) 111 ML/MIN (>60); Glucose 101 mg/dl (74-100); Magnesium 2.3 mg/dl (1.6-2.3); Potassium 4.4 mmoL/L (3.5-5.1); Sodium 137 mmol/L (136-145); Total Protein,Serum 6.3 g/dl (6.3-8.2)
[2024-01-05 06:53] LABS: Basophils % 0.4 % (0.1-2.0); Eosinophils # 0.1 K/mm3 (0.0-0.4); Hematocrit 43.2 % (42.0-52.0); Hemoglobin 14.8 g/dL (14.1-18.0); Lymphocytes # 1.1 K/mm3 (0.7-4.5); Lymphocytes % 15.4 % (10-50); Mean Corpuscular HGB Conc 34.2 g/dL (31.8-35.4); Mean Corpuscular Hemoglobin 31.7 pg (27.0-31.2); Mean Corpuscular Volume 92.6 fl (80-94); Mean Platelet Volume 8.5 fl (7.4-10.4); Monocytes # 0.3 K/mm3 (0.1-1.0); Monocytes % 3.4 % (1.7-9.3); Neutrophils # 5.7 K/mm3 (1.8-7.8); Neutrophils % 79.7 % (37.0-80.0); Platelet Count 164 K/mm3 (142-424); Red Blood Count 4.66 M/mm3 (4.60-6.20); Red Cell Distribution Width 15.3 % (11.5-17.5); White Blood Count 7.1 K/mm3 (4.8-10.8)
--- NOTE | 2024-01-05 07:51 | P.DS_ITS ---
General Admission date:: 01/02/24 Discharge date: 01/05/24 HPI HPI HPI: Mr. Awan is an 88-year-old male with significant history of hypertension, hyperlipidemia, COPD, prior CVA, CAD status post KS with CABG, on room air at home. Who presented to the ER with complaint of general weakness. This is progressed over the past 24 to 48 hours. States he began feeling worse yesterday and having productive cough. held his blood pressure meds because she was concerned about his weakness but otherwise has been taking his medications as prescribed. Denies any chest pain. Cough productive for thick yellow mucus. He got more weak this morning and was unable to get out of bed. She was concerned because last time he felt this bad he had acute heart failure. Also reports he has not had a bowel movement in almost a week workup in the ER concerning for left lower lobe pneumonia with new oxygen requirement.. Due to significance of symptoms and new oxygen requirement, medicine consulted for admission and further management. On my evaluation, patient states he came to the ER via EMS. Family at bedside. Reports he is feeling marginally better after getting fluids and antibiotics. Initially was tachycardic, tachypneic, elevated white count, and pneumonia. Meeting sepsis criteria. Has been having reflux but denies any shweta emesis. Alert and oriented x 3 on exam. Hospital Course Hospital Course Hospital Course: 88-year-old male with history of CABG, COPD, on room air at home. Presents with new oxygen requirement and finding of pneumonia. Meeting sepsis criteria on admission with tachycardia, tachypnea, leukocytosis, pneumonia on imaging. Discussed case with ER physician, request admission for antibiotics and further treatment of his pneumonia and respiratory failure. I agreed to admit for further care. Continues to require 3 L oxygen. PSI/port score of 126, class IV risk. Necessitating inpatient admission. Evaluated by therapy, would benefit from rehab. Patient gradual improvement during admission. Weaned to 3 L oxygen by day of discharge. Continue supplemental oxygen, may necessitate increasing it at night due to overnight hypoxia/sleep apnea concern. Given his improvement, stable to discharge to rehab for further management and completion of antibiotic course. Problems addressed as follows Acute hypoxemic respiratory failure Sepsis Left lower lobe pneumonia -Sepsis and PSI/port score as above. Initiated on broad-spectrum antibiotics with ceftriaxone 2 g daily. Showed gradual improvement throughout course of admission. Blood cultures remained negative. Sputum culture showed gram- positive cocci. Will wean antibiotics to cefdinir and azithromycin to complete 5 more days at time of discharge. White count has normalized during admission. 7.1 on day of discharge. Afebrile for over 48 hours. Tolerating 3 L nasal cannula during the day, will necessitate 4 to 5 L at night as he has what is suspected to be sleep apnea. Patient intolerant of CPAP during admission. Would benefit from outpatient sleep study to evaluate for sleep apnea however he is clear that he does not want to wear a mask. Continue oxygen as needed for sats greater 90%. Would benefit from repeat CBC, CMP, magnesium in 1 week to monitor kidney function and electrolytes. -Continue DuoNebs every 6 hours as needed for dyspnea. Stable to discharge to rehab for further management - On CT of chest, also noted to have subsegmental PE. Eliquis prior to discharge to complete 3 months of therapy for PE Constipation: Having small bowel movements. Continue bowel regimen as ordered. Elevated troponin: Denies any chest pain. Initial troponin 0.06, elevated to 0.2. In the setting of no chest pain and no ischemic changes on EKG, suspect supply/demand mismatch given severity of illness. CAD: Continue Plavix 75 mg daily, discontinue aspirin daily, hold blood pressure meds in the setting of sepsis and normotensive state. Total time spent on discharge 32 minutes in counseling, documentation, chart review, and direct care with patient. Exam Data for Last 24 hours Vital signs and Labs for Last 24 Hours: Temp Pulse Resp BP Pulse Ox O2 Del Method O2 Flow Rate 98.8 F 60 18 109/62 L 93 L Nasal Cannula 3.5 01/05/24 04:00 01/05/24 04:00 01/05/24 04:00 01/05/24 04:00 01/05/24 04:00 01/05/24 04:00 01/05/24 04:00 FiO2 35 01/05/24 00:22 Laboratory Results - last 24 hr 01/04/24 23:37: Specimen Source Left brachial, O2 % 2lnc, ABG pH 7.50 H, ABG pCO2 29.6 L, ABG pO2 44.5 L, ABG HCO3 22.7, ABG Total CO2 23.6, ABG O2 Saturation 87 L*, ABG Base Excess -0.4, Romel Test Non applicable 01/05/24 06:00: WBC 7.1, RBC 4.66, Hgb 14.8, Hct 43.2, MCV 92.6, MCH 31.7 H, MCHC 34.2, RDW 15.3, Plt Count 164, MPV 8.5, Neut % (Auto) 79.7, Lymph % (Auto) 15.4, Arroyo % (Auto) 3.4, Eos % (Auto) 1.0, Baso % (Auto) 0.4, Neut # (Auto) 5.7, Lymph # (Auto) 1.1, Arroyo # (Auto) 0.3, Eos # (Auto) 0.1, Baso # (Auto) 0.0, Sodium 137, Potassium 4.4 D, Chloride 108 H, Carbon Dioxide 21 L, Anion Gap 12.4, BUN 14 D, Creatinine 0.80, Estimated Creat Clear 17, Estimated GFR 92, Est GFR ( Amer) 111, Glucose 101 H, Calcium 8.5, Magnesium 2.3 D, Total Bilirubin 0.8, AST 33, ALT 19, Alkaline Phosphatase 59, Total Protein 6.3, Albumin 3.3 L, Globulin 3.0, Albumin/Globulin Ratio 1.1 I & O for Last 24 hours: Intake & Output 01/02/24 01/03/24 01/04/24 01/05/24 23:59 23:59 23:59 23:59 Intake Total 390 / 630 1350 / 1590 1020 / 1260 240 / 240 Output Total 325 / 325 300 / 300 600 / 600 50 / 50 Balance 65 / 305 1050 / 1290 420 / 660 190 / 190 Weight 65.771 kg 65.771 kg 65.862 kg 22.181 kg Microbiology Reports for the Last 24 Hours: Microbiology 01/02/24 09:40 Blood Blood Culture - Preliminary NO GROWTH AFTER 48 HOURS 01/02/24 09:30 Blood Blood Culture - Preliminary NO GROWTH AFTER 48 HOURS 01/02/24 12:10 Sputum - Expectorated Sputum Gram Stain - Final 01/02/24 12:10 Sputum - Expectorated Sputum Sputum Culture - Final Constitutional Constitutional: no acute distress, thin, chronically ill appearing and cooperative *Routine HEENT Exam Head: Present normocephalic and atraumatic Eye: Present EOMI and PERRL ENT: Present mucous membranes moist *Routine Neck Exam Neck: Present supple Routine Chest/Breast/Axilla Exam Comments: Equal expansion bilaterally on chest no signs of injury no sign of pain *Routine Respiratory Exam Respiratory: Present decreased breath sounds, crackles (Left lower base), able to speak in complete sentences and symmetric chest movement; Absent rhonchi or wheezes *Routine Cardiovascular Exam Cardiovascular: Present RRR *Routine Abdominal Exam Abdominal: Present soft and normoactive bowel sounds; Absent tenderness *Routine Rectal Exam Patient deferred: visual exam *Routine Exam Patient deferred: penile exam *Routine Extremities Exam Extremities: Present cyanosis Comments: Able to move all extremities well Routine Back/Spine/Pelvis Exam Back/Spine: Present full ROM Comments: Patient was standing and walking without difficulty before being put back to bed *Routine Skin Exam Skin: Present intact and warm Comments: Slightly pale but with brisk capillary refill in both hands nailbeds, no edema in the lower extremities *Routine Neurological Exam Neurological: Present alert, oriented X3 and moving all extremities; Absent altered mental status Routine Psychiatric Exam Psychiatric: Present cooperative Results Data Completed and Pending Labs on day of discharge: Labs from last 24 hours 01/05/24 01/04/24 06:00 23:37 WBC 7.1 RBC 4.66 Hgb 14.8 Hct 43.2 MCV 92.6 MCH 31.7 H MCHC 34.2 RDW 15.3 Plt Count 164 MPV 8.5 Neut % (Auto) 79.7 Lymph % (Auto) 15.4 Arroyo % (Auto) 3.4 Eos % (Auto) 1.0 Baso % (Auto) 0.4 Neut # (Auto) 5.7 Lymph # (Auto) 1.1 Arroyo # (Auto) 0.3 Eos # (Auto) 0.1 Baso # (Auto) 0.0 Specimen Source Left brachial O2 % 2lnc ABG pH 7.50 H ABG pCO2 29.6 L ABG pO2 44.5 L ABG HCO3 22.7 ABG Total CO2 23.6 ABG O2 Saturation 87 L* ABG Base Excess -0.4 Romel Test Non applicable Sodium 137 Potassium 4.4 D Chloride 108 H Carbon Dioxide 21 L Anion Gap 12.4 BUN 14 D Creatinine 0.80 Estimated Creat Clear 17 Estimated GFR 92 Est GFR ( Amer) 111 Glucose 101 H Calcium 8.5 Magnesium 2.3 D Total Bilirubin 0.8 AST 33 ALT 19 Alkaline Phosphatase 59 Total Protein 6.3 Albumin 3.3 L Globulin 3.0 Albumin/Globulin Ratio 1.1 Preliminary micro results at discharge 01/02/24 09:40 Blood Culture - Preliminary Blood NO GROWTH AFTER 48 HOURS 01/02/24 09:30 Blood Culture - Preliminary Blood NO GROWTH AFTER 48 HOURS DS: Diagnosis Discharge Diagnosis (1) Sepsis due to pneumonia: Status: Acute Code(s): J18.9 - Pneumonia, unspecified organism; A41.9 - Sepsis, unspecified organism (2) Hypoxemia: Status: Acute Code(s): R09.02 - Hypoxemia (3) Weakness: Status: Acute Code(s): R53.1 - Weakness (4) Debility: Status: Acute Code(s): R53.81 - Other malaise (5) Emphysematous COPD: Status: Acute Code(s): J43.9 - Emphysema, unspecified Qualifiers: Emphysema type: other Qualified Code(s): J43.8 - Other emphysema (6) Hypertension: Status: Acute Code(s): I10 - Essential (primary) hypertension (7) Hyperlipidemia: Status: Acute Code(s): E78.5 - Hyperlipidemia, unspecified (8) Chronic back pain: Status: Acute Code(s): M54.9 - Dorsalgia, unspecified; G89.29 - Other chronic pain (9) Macular degeneration: Status: Chronic Code(s): H35.30 - Unspecified macular degeneration Meds Home Medications and Allergies Home Medications ?Medication ?Instructions ?Recorded ?Confirmed ?Type bisacodyl 5 mg tablet,delayed 10 mg PO DAILY Constipation 12/03/22 01/03/24 History release clopidogrel 75 mg tablet 75 mg PO DAILY 12/03/22 01/02/24 History docusate sodium 100 mg capsule 100 mg PO BID Constipation 12/03/22 01/03/24 History nitroglycerin 0.4 mg sublingual 0.4 mg sublingual Q5M PRN Chest 12/03/22 01/03/24 History tablet Pain simvastatin 20 mg tablet 20 mg PO HS 12/03/22 01/02/24 History fluticasone fur. 100 mcg-umeclid 1 inh inhalation DAILY #60 ea 12/06/22 01/03/24 Rx 62.5 mcg-vilant 25 mcg inhalat.powder (Trelegy Ellipta) ipratropium 0.5 mg-albuterol 3 mg 3 ml inhalation Q6HP PRN Shortness 12/06/22 01/03/24 Rx (2.5 mg base)/3 mL nebulization Of Breath #120 mL soln magnesium oxide 400 mg (241.3 mg 400 mg PO BID #60 tabs 12/06/22 01/03/24 Rx magnesium) tablet bumetanide 0.5 mg tablet 0.5 mg PO DAILY 01/02/24 01/02/24 History apixaban 5 mg tablet (Eliquis) 10 mg (2 x 5 mg) PO BID 30 days 01/05/24 Rx #70 tabs azithromycin 250 mg tablet 250 mg PO DAILY 5 days #6 tabs 01/05/24 Rx cefdinir 300 mg capsule 300 mg PO BID 5 days #10 caps 01/05/24 Rx New Prescriptions to Start Prescriptions: apixaban [Eliquis] Kyler Paz James cefdinir Kyler Paz Allergies Allergy/AdvReac Type Severity Reaction Status Date / Time No Known Allergies Allergy Verified 05/29/23 09:02 Discharge Plan Disposition Patient Disposition: [facility] Condition: Fair Discharge Order Discharge Orders: Discharge Order (Routine); Ordered 01/05/24 Ordered By: Kyler Paz Follow up Plan Prescriptions/Medication Reconciliation: New Eliquis 5 mg Tablet 10 mg PO BID 30 Days Qty: 70 0RF Rx Instructions: 10 mg twice daily through 01/09. Transition to 5 mg twice daily thereafter. cefdinir 300 mg capsule 300 mg PO BID 5 Days Qty: 10 0RF Rx Instructions: First dose due 01/06/2024 azithromycin 250 mg tablet 250 mg PO DAILY 5 Days Qty: 6 0RF Rx Instructions: 2 tablets on 01/05, 1 tablet daily thereafter Continued clopidogrel 75 mg tablet 75 mg PO DAILY simvastatin 20 mg tablet 20 mg PO HS nitroglycerin 0.4 mg Tablet, Sublingual 0.4 mg SUBLINGUAL Q5M PRN (Reason: Chest Pain) Rx Instructions: do not exceed 3 doses per episode docusate sodium 100 mg Capsule 100 mg PO BID bisacodyl 5 mg Tablet,Delayed Release (Dr/Ec) 10 mg PO DAILY Trelegy Ellipta 100-62.5-25 mcg Blister With Device 1 inh inhalation DAILY Qty: 60 0RF ipratropium-albuterol 0.5 mg-3 mg(2.5 mg base)/3 mL Solution For Nebulization 3 ml inhalation Q6HP PRN (Reason: Shortness Of Breath) Qty: 120 0RF magnesium oxide 400 mg (241.3 mg magnesium) Tablet 400 mg PO BID Qty: 60 0RF bumetanide 0.5 mg tablet 0.5 mg PO DAILY Patient Comments: TAKE 1 TABLET BY MOUTH DAILY Discontinued oxycodone-acetaminophen 5-325 mg tablet 5 tab PO Q6HP PRN (Reason: Pain (Scale Score 4-6)) Rx Instructions: tab amlodipine-benazepril 10-20 mg capsule 1 cap PO DAILY aspirin 81 mg Tablet,Chewable 81 mg PO DAILY Problem Reconciliation Problems Reviewed?: Yes Patient Discharge Instructions ACTIVITY: Continue current activity DIET: continue same diet Patient Instructions: DI for Pneumonia -- Adult, DI for Sepsis -- Adult Print Language: [place] Providers Primary Care Provider: Provider,Referral Admit Provider: Kyler Paz Attending Provider: Kyler Paz
[2024-01-05 08:00] VITALS: BP 121/53; PULSE 63; RESP 16; TEMP 36.9; O2SAT 95; O2SAT 97
[2024-01-05] MEDS: BUMETANIDE 1 MG TABLET 0.5 MG PO (08:20)
[2024-01-05] MEDS: CEFTRIAXONE SODIUM 2 GM in 0.9 % SODIUM CHLORIDE 100 ML IV (08:20)
[2024-01-05] MEDS: APIXABAN 5MG TABLET 10 MG PO (08:20)
[2024-01-05] MEDS: CLOPIDOGREL 75MG TAB 75 MG PO (08:20)
[2024-01-05] MEDS: DOCUSATE SODIUM 100 MG CAPSULE PO (08:20)
--- NOTE | 2024-01-05 08:26 | PC.NURSE ---
RA sat 85% o
[2024-01-05 10:00] LABS: VBG Base Excess -6.6 mmol/L (-2.4-2.3); VBG HCO3 18.9 mmol/L (23-30); VBG Oxygen Saturation 90.2 % (50-70); VBG PCO2 34.6 mmol/L (35-51); VBG PH 7.36 mmol/L (7.31-7.41); VBG PO2 54.6 mmol/L (28-40)
== END 2024-01-05 13:55 | DRG 871 ==
LOC: ER 09:28 → 2ND 10:01
PROVIDERS: Nurse Practitioner Family; Admitting Provider Internal Medicine Adolescent Medicine; Emergency Provider Emergency Medicine; Visit Provider Internal Medicine Adolescent Medicine
DX: A41.9 Sepsis, unspecified organism (principal); J18.9 Pneumonia, unspecified organism; J96.01 Acute respiratory failure with hypoxia; I10 Essential (primary) hypertension; E78.5 Hyperlipidemia, unspecified; J44.9 Chronic obstructive pulmonary disease, unspecified; Z86.73 Personal history of transient ischemic attack (TIA), and cerebral infarction without residual deficits; I25.10 Atherosclerotic heart disease of native coronary artery without angina pectoris; I25.2 Old myocardial infarction; J43.8 Other emphysema; G89.29 Other chronic pain; Z20.822 Contact with and (suspected) exposure to COVID-19; K59.00 Constipation, unspecified; M54.89 Other dorsalgia; R77.8 Other specified abnormalities of plasma proteins
CPT/HCPCS: 36415; 71275; 74177; 80053; 81001; 82803; 83605; 83735; 83880; 84100; 84145; 84436; 84443; 84484; 85007; 85025; 86140; 87040; 87070; 87205; 87636; 93005; 94640; 94660; 94760; 94761; 97110; 97116; 97163; 97165; 97530; 99285; J0696; J1650; J3475; J7030; J7620; Q9967

== ENCOUNTER 2024-03-28 11:48 | Outpatient (CLI) | payer MEDICARE, BC, SELFPAY ==
[2024-03-28 12:21] LABS: Basophils % 0.6 % (0.1-2.0); Eosinophils % 0.6 % (0.1-12.0); Hematocrit 44.5 % (42.0-52.0); Hemoglobin 14.8 g/dL (14.1-18.0); Lymphocytes # 2.3 K/mm3 (0.7-4.5); Lymphocytes % 33.9 % (10-50); Mean Corpuscular HGB Conc 33.3 g/dL (31.8-35.4); Mean Corpuscular Hemoglobin 31.2 pg (27.0-31.2); Mean Corpuscular Volume 93.7 fl (80-94); Mean Platelet Volume 10.4 fl (7.4-10.4); Monocytes # 0.5 K/mm3 (0.1-1.0); Monocytes % 6.8 % (1.7-9.3); Neutrophils # 3.9 K/mm3 (1.8-7.8); Neutrophils % 57.7 % (37.0-80.0); Platelet Count 187 K/mm3 (142-424); Red Blood Count 4.75 M/mm3 (4.60-6.20); Red Cell Distribution Width 14.6 % (11.5-17.5); White Blood Count 6.8 K/mm3 (4.8-10.8)
[2024-03-28 12:33] LABS: D-Dimer 0.51 ug/mL (0.0-0.5)
== END 2024-03-28 23:59 | disposition home or self-care (01) ==
LOC: LAB 11:49
PROVIDERS: PCP Family Medicine; Visit Provider Internal Medicine Pulmonary Disease
DX: I26.92 Saddle embolus of pulmonary artery without acute cor pulmonale (principal); J45.909 Unspecified asthma, uncomplicated; Z87.891 Personal history of nicotine dependence
CPT/HCPCS: 36415; 85025; 85378

== ENCOUNTER 2024-04-12 09:49 | Outpatient (CLI) | payer MEDICARE, BC, SELFPAY ==
[2024-04-12] MEDS: ALBUTEROL 0.083% 2.5 MG/3 ML NEB IH (11:23)
== END 2024-04-12 23:59 | disposition home or self-care (01) ==
LOC: RT 09:50
PROVIDERS: PCP Family Medicine; Visit Provider Internal Medicine Pulmonary Disease
DX: R06.09 Other forms of dyspnea (principal); J43.8 Other emphysema
CPT/HCPCS: 94060; 94726; 94729; 94762; J7613

== ENCOUNTER 2024-06-01 13:54 | Inpatient (IN) | payer MEDICARE, BC, SELFPAY ==
[2024-06-01] VITALS (11 sets, daily range): BP systolic 109–207; BP diastolic 47–97; PULSE 38–94; RESP 13–19; TEMP 36.5–36.7; O2SAT 91–96; BMI 25.7
--- NOTE | 2024-06-01 14:17 | XR_ITS ---
PROCEDURE INFORMATION: Exam: XR Chest Exam date and time: 06/01/2024 2:25 PM Age: 88 years old Clinical indication: Other: Weakness TECHNIQUE: Imaging protocol: Radiologic exam of the chest. Views: 1 view. COMPARISON: CT ANGIO CHEST PE PROTOCOL 01/02/2024 7:58 AM FINDINGS: Lungs: Opacities in both bases may represent atelectasis or pneumonia. . Pleural spaces: Unremarkable. No pleural effusion. No pneumothorax. Heart/Mediastinum: Cardiomegaly and vascular prominence may represent interstitial edema.. Bones/joints: Median sternotomy. Vertebroplasty in the lumbar spine IMPRESSION: 1. Cardiomegaly and vascular prominence may represent interstitial edema.. 2. Opacities in both bases may represent atelectasis or pneumonia. .
--- NOTE | 2024-06-01 14:17 | ECG_ITS ---
APPROVED REPORT Exam: Resting ECG HR:75 bpm ECG Measurements Heart Rate 75 AXES QRSd 148 QRS -18 QT 408 T 87 QTc 436 Conclusion Irregularly irregular with ectopy, difficult to ascertain underlying rhythm. No STEMI Electronically signed by : YEYO GOMEZ, 06/01/2024 16:03:36
[2024-06-01 14:24] LABS: MANUAL DIFFERENTIAL MANUAL DIFFERENTIAL (MANUAL DIFF)
[2024-06-01 14:29] LABS: Basophils # 0.1 K/mm3 (0-0.2); Basophils % 0.7 % (0.1-2.0); Eosinophils # 0.1 K/mm3 (0.0-0.4); Eosinophils % 0.8 % (0.1-12.0); Hematocrit 45.4 % (42.0-52.0); Hemoglobin 15.2 g/dL (14.1-18.0); Lymphocytes # 2.6 K/mm3 (0.7-4.5); Lymphocytes % 33.9 % (10-50); Mean Corpuscular HGB Conc 33.5 g/dL (31.8-35.4); Mean Corpuscular Hemoglobin 31.4 pg (27.0-31.2); Mean Corpuscular Volume 93.8 fl (80-94); Mean Platelet Volume 10.2 fl (7.4-10.4); Monocytes # 0.6 K/mm3 (0.1-1.0); Monocytes % 7.8 % (1.7-9.3); Neutrophils # 4.2 K/mm3 (1.8-7.8); Neutrophils % 56.4 % (37.0-80.0); Platelet Count 258 K/mm3 (142-424); Red Blood Count 4.84 M/mm3 (4.60-6.20); Red Cell Distribution Width 14.4 % (11.5-17.5); White Blood Count 7.5 K/mm3 (4.8-10.8)
[2024-06-01 14:31] LABS: Albumin Level 4.7 g/dl (3.5-5.0); Chloride 103 mmol/L (98-107); Sodium 141 mmol/L (136-145)
[2024-06-01 14:34] LABS: Alanine Aminotransferase 22 U/L (12-78); Albumin/Globulin Ratio 1.3 (1.1-1.8); Alkaline Phosphatase 84 U/L (38-126); Aspartate Amino Transferase 34 U/L (17-59); Bilirubin,Total 0.6 mg/dl (0.2-1.3); Blood Urea Nitrogen 20 mg/dl (9-20); Carbon Dioxide 28 mmol/L (22.0-30.0); Creatinine Clearance Estimated 53 mL/min (50-200); Estimated Glomerular Filt Rate 80 ml/min (>60); GFR (African American) 97 ML/MIN (>60); Globulin 3.7 g/dL (1.3-3.2); Total Protein,Serum 8.4 g/dl (6.3-8.2)
[2024-06-01 14:35] LABS: Calcium 9.7 mg/dl (8.4-10.2); Glucose 124 mg/dl (74-100)
--- NOTE | 2024-06-01 14:37 | ED_ITS ---
<Statement entered by Lety Coburn DO - 06/01/24 16:12> I was consulted by the UNA, and we discussed the complexity of the problems being addressed. I approved the treatment and management plan for this patient's care in the emergency department, thus performing a substantive portion of the medical decision making. I personally evaluated the patient. I independently interpreted chest x-ray prior to radiology read and noted no large focal consolidation or pneumonia. Labs obtained interpreted by myself concerning for normal initial troponin, no significant electrolyte derangements to explain dysrhythmia. Reassuring CBC, reassuring chemistry. He has an irregularly irregular heartbeat and initially was difficult to ascertain his underlying rhythm given the degree of ectopy and irregularity noted on EKGs and cardiac telemetry. His heart rate ranges from 90s to the low 30s at rest. He is, however, hypertensive. Eventually, third EKG was concerning for 2-1 AV block. He has a known right bundle branch block, but this appears to be new. I had interactive discussion with Dr. Blanton with cardiology here who advised that he felt the patient likely needed a pacemaker placement and also recommended dopamine and nipride for his low heart rate and hypertension. Patient has historically followed at [facility] for cardiology, so family does not want to pursue cardiac intervention or evaluation here. They request transfer to [facility] where his tours captain Dr. Heath is. Given this, I called and had an interactive discussion with Dr. Avila at [facility] with cardiology who advised they would be happy to except the patient for transfer, however he will be waitlisted for a bed as they do not have beds currently. She recommended initiation of Cardene drip for blood pressure control with a goal systolic less than 140, does not recommend medication to increase heart rate at this time since he is not hypotensive. Ultimately given need for potential pacemaker placement per cardiology, symptomatic bradycardia with a 2-1 AV block, I feel the patient would benefit from admission. The hospitalist admitted the patient here in stable condition pending potential transfer to [facility] at patient request. Lety Coburn DO Discharge Plan Disposition Patient Disposition: Still a Patient Discharge ED Provider: Jarrod Keita General Adult HPI <Xu Aguiar ([facility]), MAIL TECHNICIAN - Last Filed: 06/01/24 15:44> General Chief complaint: Weakness Stated complaint: stroke like systems Time Seen by Provider: 06/01/24 14:09 Mode of Arrival: Wheelchair Source of Information: Patient Description of Symptoms (Recalled from ER Triage Doc. by RN): Patient reports having a carotid stent placed at the end of April. Came to er today stating that his pulse is weak and thready. Complaint also of generalized weakness. History of Present Illness HPI narrative: 88-year-old male presents for complaints of weakness and erratic heart rate. Patient states he had a carotid stent placed on 20 May. Patient states he felt fine until 2 days ago when he noticed he was becoming weak. Patient states he usually gets around with a rollator walker and states over the last 2 days it is getting more difficult for him to get around. Patient denies any chest pain or any chest pressure. Patient states he did have an episode prior to coming to the ER where his heart rate would start in the 90s and then dropped to the 30s. Related Data Home Medications ?Medication ?Instructions ?Recorded ?Confirmed clopidogrel 75 mg tablet 75 mg PO DAILY 12/03/22 06/01/24 nitroglycerin 0.4 mg sublingual 0.4 mg sublingual Q5M PRN Chest 12/03/22 06/01/24 tablet Pain simvastatin 20 mg tablet 20 mg PO HS 12/03/22 06/01/24 bumetanide 0.5 mg tablet 0.5 mg PO DAILY 01/02/24 06/01/24 lansoprazole 30 mg capsule,delayed 30 mg PO DAILY 02/29/24 06/01/24 release lisinopril 20 mg tablet 20 mg PO DAILY 06/01/24 06/01/24 Previous Rx's ?Medication ?Instructions ?Recorded apixaban 5 mg tablet (Eliquis) 5 mg PO BID 30 days #60 tabs 02/29/24 Allergies Allergy/AdvReac Type Severity Reaction Status Date / Time No Known Allergies Allergy Verified 04/12/24 11:51 [facility] <Xu Aguiar ([facility]), MAIL TECHNICIAN - Last Filed: 06/01/24 15:44> [facility] Disclaimer: The information contained in this section may have been updated after the patient was seen, as this information can be updated by other users. Medical History , MAIL TECHNICIAN) Pulmonary embolism Paraseptal emphysema Spinal compression fracture Macular degeneration CVA (cerebral vascular accident) Myocardial infarction Hyperlipidemia Hypertension Hernia Surgical History , MAIL TECHNICIAN) Hx of kyphoplasty History of cardiac cath Hx of CABG History of carotid endarterectomy History of appendectomy Family History , MAIL TECHNICIAN) No significant family history Social History , MAIL TECHNICIAN) Smoking Status: Former smoker how long ago did patient quit smokin years ago alcohol intake: never current occupational status: retired Travel in the last 8 weeks: None Have you lived/traveled outside [place] in past 30 days?: No Contact w/someone who lives/traveled outside US past 30 days?: No Exposure to someone with infectious disease in past 14 days?: No Do you have a fever (greater than 100.4 F or 38 C)?: No Have you tested positive for COVID-19: No Exposed to someone with COVID-19 in past 14 days?: No Do you have a sore throat?: No Do you have a cough?: No Do you have any weakness?: No Do you have any diarrhea?: No Are you experiencing any unusual bleeding?: No Do you have any muscle aches/pain?: No Do you have any abdominal pain?: No Are you experiencing loss of taste or smell?: No Other Medical History Have you received the Flu Vaccine for this season: No Have you received the Pneumonia Vaccine: Yes <[facility] MAIL TECHNICIAN - Last Filed: 06/01/24 15:44> ROS Obtained: Yes Systems reviewed as appropriate & no additional complaints except as documented Constitutional Constitutional: Reports system reviewed and no additional complaints, except as documented, Reports as per HPI and Reports weakness Cardiovascular Cardiovascular: Reports system reviewed and no additional complaints, except as documented, Reports as per HPI, Reports slow heart rate and Reports other Neurologic Neurologic: Reports system reviewed and no additional complaints, except as documented, Reports as per HPI and Reports weakness Physical Exam <[facility] Cast[facility]eda[facility] - Last Filed: 06/01/24 15:44> General General appearance: alert and in no apparent distress Eye Eye exam: Present normal appearance and PERRL ENT ENT exam: Present normal exam, normal oropharynx and mucous membranes moist Respiratory Respiratory exam: Present normal lung sounds bilaterally Cardiovascular Cardiovascular exam: Present irregular rhythm Abdominal Exam Abdominal exam: Present soft and normal bowel sounds; Absent distention, tenderness or guarding Extremities Exam Extremities exam: Present full ROM and normal capillary refill; Absent tenderness or edema Neurological Exam Neurological exam: Present alert, oriented X3 and CN II-XII intact Skin Skin exam: Present warm and intact Medical Decision Making <Xu Aguiar ([facility]), MAIL TECHNICIAN - Last Filed: 06/01/24 15:44> Medical Records Medical records reviewed: Yes I reviewed the patient's medical records. Screening: Per USPSTF and CDC recommendations, given the prevalence of disease in our region, it is our hospital?s policy to screen for HIV and viral Hepatitis for all patients aged 18 and over and those with ongoing risk factors. Jaden Inquiry Pt receiving controlled substance: No Jaden was queried for this patient: No Vital Signs: 06/01/24 13:55 06/01/24 14:01 06/01/24 14:30 Temperature 97.9 F Temperature Source Oral Pulse Rate 94 H Pulse Rate [Radial] 91 H Respiratory Rate 18 17 17 Blood Pressure 207/97 H 175/63 H Blood Pressure [Left Arm] 207/97 H Blood Pressure Mean [Left Arm] 133 Blood Pressure Source [Left Arm] Automatic Cuff Blood Pressure Position [Left Arm] Sitting 02 Sat by Pulse Oximetry 93 L 94 L 95 Oxygen Delivery Method Room Air Room Air Oxygen Flow Rate (LPM) 06/01/24 14:54 06/01/24 15:00 06/01/24 15:30 Temperature Temperature Source Pulse Rate 54 L 52 L 39 L Pulse Rate [Radial] Respiratory Rate 14 19 14 Blood Pressure 163/62 H 160/61 H 165/55 H Blood Pressure [Left Arm] Blood Pressure Mean [Left Arm] Blood Pressure Source [Left Arm] Blood Pressure Position [Left Arm] 02 Sat by Pulse Oximetry 95 95 96 Oxygen Delivery Method Nasal Cannula Nasal Cannula Nasal Cannula Oxygen Flow Rate (LPM) 2 2 2 06/01/24 16:00 Temperature Temperature Source Pulse Rate 52 L Pulse Rate [Radial] Respiratory Rate 13 Blood Pressure Blood Pressure [Left Arm] Blood Pressure Mean [Left Arm] Blood Pressure Source [Left Arm] Blood Pressure Position [Left Arm] 02 Sat by Pulse Oximetry 96 Oxygen Delivery Method Nasal Cannula Oxygen Flow Rate (LPM) 2 Lab Data Lab results reviewed: Yes I reviewed the patient's lab results. Lab Results 06/01/24 14:00: WBC 7.5, RBC 4.84, Hgb 15.2, Hct 45.4, MCV 93.8, MCH 31.4 H, MCHC 33.5, RDW 14.4, Plt Count 258, MPV 10.2, Neut % (Auto) 56.4, Lymph % (Auto) 33.9, [place] % (Auto) 7.8, Eos % (Auto) 0.8, Baso % (Auto) 0.7, Neut # (Auto) 4.2, Lymph # (Auto) 2.6, [place] # (Auto) 0.6, Eos # (Auto) 0.1, Baso # (Auto) 0.1, Total Counted 100, Neutrophils % (Manual) 56, Lymphocytes % (Manual) 35, Monocytes % (Manual) 8, Eosinophils % (Manual) 1, Platelet Estimate Normal, RBC Morphology Normal, D-Dimer 0.66 H, Sodium 141, Potassium 4.0, Chloride 103, Carbon Dioxide 28, Anion Gap 14.0, BUN 20, Creatinine 0.90, Estimated Creat Clear 53, Estimated GFR 80, Est GFR ( Amer) 97, Glucose 124 H, Calcium 9.7, Magnesium 2.1, Total Bilirubin 0.6, AST 34, ALT 22, Alkaline Phosphatase 84, Troponin I 0.04 H, NT-Pro-B Natriuret Pep 1310 H, Total Protein 8.4 H D, Albumin 4.7, Globulin 3.7 H, Albumin/Globulin Ratio 1.3, TSH 5.63 H, Free T4 0.92, HCV Ab SERGIO w/Rflx PCR Qn Negative, HIV Ag/Ab Combo Qual Negative 06/01/24 14:00 06/01/24 14:00 Orders (Tests/Meds): ED MEDICATIONS Generic Name Dose Route Start Last Admin Trade Name Freq PRN Reason Stop Dose Admin Apixaban 5 mg 06/01/24 21:00 Apixaban 5mg Tablet PO 07/01/24 20:59 BID ALANNA Bumetanide 1 mg 06/01/24 15:42 Bumetanide 1mg/4ml Vial IV 06/01/24 15:43 ONCE ONE Clopidogrel Bisulfate 75 mg 06/02/24 09:00 Clopidogrel 75mg Tab PO 07/02/24 08:59 DAILY ALANNA Lisinopril 20 mg 06/02/24 09:00 Lisinopril 20mg Tablet PO 07/02/24 08:59 DAILY ALANNA Nitroglycerin 0.4 mg 06/01/24 15:38 Nitroglycerin 0.4mg Sl Tablet SL 07/01/24 15:37 Q5M PRN Chest Pain Non-Formulary Medication 0.5 mg 06/02/24 09:00 Bumetanide PO 07/02/24 08:59 DAILY ALANNA Pantoprazole Sodium 40 mg 06/01/24 21:00 Pantoprazole 40mg Tablet PO 07/01/24 20:59 HS ALANNA Pravastatin Sodium 40 mg 06/01/24 21:00 Pravastatin 40mg Tab PO 07/01/24 20:59 HS ALANNA Discontinued Medications Generic Name Dose Route Start Last Admin Trade Name Freq PRN Reason Stop Dose Admin Lisinopril 10 mg 06/01/24 15:39 Lisinopril 10mg Tablet PO 06/01/24 15:40 ONCE ONE ORDERS Category Date Time Status Chest XR -- portable [XR chest portable] Stat Exams 06/01/24 14:17 Completed BNP [NT Pro Brain Natriuretic Pep.] Routine Lab 06/01/24 14:00 Completed CBC Man Diff [Complete Blood Count Man Dif] Stat Lab 06/01/24 14:00 Completed CMP [Comprehensive Metabolic Panel] Stat Lab 06/01/24 14:00 Completed Complete Blood Count Auto Diff AMLAB Lab 06/02/24 06:00 Ordered Comprehensive Metabolic Panel AMLAB Lab 06/02/24 06:00 Ordered D-Dimer Stat Lab 06/01/24 14:00 Completed Free T4 (Free Thyroxine) Stat Lab 06/01/24 14:00 Completed HIV Combo Stat Lab 06/01/24 14:00 Completed Hepatitis C Ab Qual. W/ RFX Stat Lab 06/01/24 14:00 Completed MAG [Magnesium] Stat Lab 06/01/24 14:00 Completed Magnesium AMLAB Lab 06/02/24 06:00 Ordered TSH [Thyroid Stimulating Hormone] Stat Lab 06/01/24 14:00 Completed Trop I [Troponin I] Stat Lab 06/01/24 14:00 Completed Troponin I Q3H Lab 06/01/24 17:30 Ordered Troponin I Q3H Lab 06/01/24 20:30 Ordered Medical Decision Narrative: In summary patient is a 88-year-old male who presents to the emergency department for evaluation of weakness, irregular heart rate. Patient is hemodynamically stable upon arrival, afebrile. Irregular up-and-down heart rate elevated blood pressure differential diagnosis includes heart block, A-fib, Initial workup will be conducted with labs, EKG, chest x-ray. Initial inventions include labs, chest x-ray, EKG. Initial workup reviewed by vt EKG shows 2-1 AV block. Upon repeat evaluation patient still states weakness, based on heart rate up and down as high 90s low 30s with a 2-1 AV block cardiology was consulted, patient and family request to be transferred to [facility] where their tours captain cannot take care of him. Sent to [facility] called spoke with Dr. Avila they have accepted the patient no beds available at this time he is placed on a waiting list and not likely to be transferred tonight. Given this hospitalist consulted accepted patient for admission to [facility] while waiting for bed placement at [facility]. Documented with personnel monitor irregular rate 50 Consideration of test but deferring CTA based on patient's age and years criteria was ruled out for PE. <Lety Coburn, DO - Last Filed: 06/01/24 16:12> Vital Signs: 06/01/24 13:55 06/01/24 14:01 06/01/24 14:30 Temperature 97.9 F Temperature Source Oral Pulse Rate 94 H Pulse Rate [Radial] 91 H Respiratory Rate 18 17 17 Blood Pressure 207/97 H 175/63 H Blood Pressure [Left Arm] 207/97 H Blood Pressure Mean [Left Arm] 133 Blood Pressure Source [Left Arm] Automatic Cuff Blood Pressure Position [Left Arm] Sitting 02 Sat by Pulse Oximetry 93 L 94 L 95 Oxygen Delivery Method Room Air Room Air Oxygen Flow Rate (LPM) 06/01/24 14:54 06/01/24 15:00 06/01/24 15:30 Temperature Temperature Source Pulse Rate 54 L 52 L 39 L Pulse Rate [Radial] Respiratory Rate 14 19 14 Blood Pressure 163/62 H 160/61 H 165/55 H Blood Pressure [Left Arm] Blood Pressure Mean [Left Arm] Blood Pressure Source [Left Arm] Blood Pressure Position [Left Arm] 02 Sat by Pulse Oximetry 95 95 96 Oxygen Delivery Method Nasal Cannula Nasal Cannula Nasal Cannula Oxygen Flow Rate (LPM) 2 2 2 06/01/24 16:00 Temperature Temperature Source Pulse Rate 52 L Pulse Rate [Radial] Respiratory Rate 13 Blood Pressure Blood Pressure [Left Arm] Blood Pressure Mean [Left Arm] Blood Pressure Source [Left Arm] Blood Pressure Position [Left Arm] 02 Sat by Pulse Oximetry 96 Oxygen Delivery Method Nasal Cannula Oxygen Flow Rate (LPM) 2 Lab Data Lab Results 06/01/24 14:00: WBC 7.5, RBC 4.84, Hgb 15.2, Hct 45.4, MCV 93.8, MCH 31.4 H, MCHC 33.5, RDW 14.4, Plt Count 258, MPV 10.2, Neut % (Auto) 56.4, Lymph % (Auto) 33.9, [place] % (Auto) 7.8, Eos % (Auto) 0.8, Baso % (Auto) 0.7, Neut # (Auto) 4.2, Lymph # (Auto) 2.6, [place] # (Auto) 0.6, Eos # (Auto) 0.1, Baso # (Auto) 0.1, Total Counted 100, Neutrophils % (Manual) 56, Lymphocytes % (Manual) 35, Monocytes % (Manual) 8, Eosinophils % (Manual) 1, Platelet Estimate Normal, RBC Morphology Normal, D-Dimer 0.66 H, Sodium 141, Potassium 4.0, Chloride 103, Carbon Dioxide 28, Anion Gap 14.0, BUN 20, Creatinine 0.90, Estimated Creat Clear 53, Estimated GFR 80, Est GFR ( Amer) 97, Glucose 124 H, Calcium 9.7, Magnesium 2.1, Total Bilirubin 0.6, AST 34, ALT 22, Alkaline Phosphatase 84, Troponin I 0.04 H, NT-Pro-B Natriuret Pep 1310 H, Total Protein 8.4 H D, Albumin 4.7, Globulin 3.7 H, Albumin/Globulin Ratio 1.3, TSH 5.63 H, Free T4 0.92, HCV Ab SERGIO w/Rflx PCR Qn Negative, HIV Ag/Ab Combo Qual Negative Orders (Tests/Meds): ED MEDICATIONS Generic Name Dose Route Start Last Admin Trade Name Freq PRN Reason Stop Dose Admin Apixaban 5 mg 06/01/24 21:00 Apixaban 5mg Tablet PO 07/01/24 20:59 BID ALANNA Bumetanide 1 mg 06/01/24 15:42 Bumetanide 1mg/4ml Vial IV 06/01/24 15:43 ONCE ONE Clopidogrel Bisulfate 75 mg 06/02/24 09:00 Clopidogrel 75mg Tab PO 07/02/24 08:59 DAILY ALANNA Lisinopril 20 mg 06/02/24 09:00 Lisinopril 20mg Tablet PO 07/02/24 08:59 DAILY ALANNA Nitroglycerin 0.4 mg 06/01/24 15:38 Nitroglycerin 0.4mg Sl Tablet SL 07/01/24 15:37 Q5M PRN Chest Pain Non-Formulary Medication 0.5 mg 06/02/24 09:00 Bumetanide PO 07/02/24 08:59 DAILY ALANNA Pantoprazole Sodium 40 mg 06/01/24 21:00 Pantoprazole 40mg Tablet PO 07/01/24 20:59 HS ALANNA Pravastatin Sodium 40 mg 06/01/24 21:00 Pravastatin 40mg Tab PO 07/01/24 20:59 HS ALANNA Discontinued Medications Generic Name Dose Route Start Last Admin Trade Name Freq PRN Reason Stop Dose Admin Lisinopril 10 mg 06/01/24 15:39 Lisinopril 10mg Tablet PO 06/01/24 15:40 ONCE ONE ORDERS Category Date Time Status Chest XR -- portable [XR chest portable] Stat Exams 06/01/24 14:17 Completed BNP [NT Pro Brain Natriuretic Pep.] Routine Lab 06/01/24 14:00 Completed CBC Man Diff [Complete Blood Count Man Dif] Stat Lab 06/01/24 14:00 Completed CMP [Comprehensive Metabolic Panel] Stat Lab 06/01/24 14:00 Completed Complete Blood Count Auto Diff AMLAB Lab 06/02/24 06:00 Ordered Comprehensive Metabolic Panel AMLAB Lab 06/02/24 06:00 Ordered D-Dimer Stat Lab 06/01/24 14:00 Completed Free T4 (Free Thyroxine) Stat Lab 06/01/24 14:00 Completed HIV Combo Stat Lab 06/01/24 14:00 Completed Hepatitis C Ab Qual. W/ RFX Stat Lab 06/01/24 14:00 Completed MAG [Magnesium] Stat Lab 06/01/24 14:00 Completed Magnesium AMLAB Lab 06/02/24 06:00 Ordered TSH [Thyroid Stimulating Hormone] Stat Lab 06/01/24 14:00 Completed Trop I [Troponin I] Stat Lab 06/01/24 14:00 Completed Troponin I Q3H Lab 06/01/24 17:30 Ordered Troponin I Q3H Lab 06/01/24 20:30 Ordered ECG Data Tracing #1: I reviewed this ECG and interpreted as documented below: Irregularly irregular with a ventricular rate of 75 bpm. Difficult to ascertain underlying rhythm. No acute STEMI. ECG initial impression date: 06/01/24 ECG initial impression time: 14:12 Tracing #2: I reviewed this ECG and interpreted as documented below: EKG looks to be secondary degree Mobitz type I block without acute ST changes concerning for STEMI. He also has a right bundle branch block. ECG initial impression date: 06/01/24 ECG initial impression time: 14:55 Tracing #3: I reviewed this ECG and interpreted as documented below: 2-1 AV block with a ventricular rate of 37 bpm. No acute STEMI. Right bundle branch block ECG initial impression date: 06/01/24 ECG initial impression time: 15:08 Critical Care <Xu Aguiar ([facility]), MAIL TECHNICIAN - Last Filed: 06/01/24 15:44> Critical Care Time Critical Care Time: Yes Attestation: On 06/01/24, the high probability of a clinically significant, sudden or life threatening deterioration of the following system(s) required my full and direct attention, intervention and personal management. The time I documented below is in addition to time spent performing reported procedures but includes the following listed in this critical care notation. Total Time Total Critical Care Time: 35 <Lety Coburn, DO - Last Filed: 06/01/24 16:12> Total Time Total Critical Care Time: 55
[2024-06-01 14:47] LABS: Troponin I 0.04 ng/ml (0.00-0.034)
[2024-06-01 14:53] LABS: Magnesium 2.1 mg/dl (1.6-2.3)
--- NOTE | 2024-06-01 14:54 | ECG_ITS ---
APPROVED REPORT Exam: Resting ECG HR:54 bpm ECG Measurements Heart Rate 54 AXES HI 281 P 87 QRSd 137 QRS -2 QT 454 T 141 QTc 439 Conclusion Sinus bradycardia 2-1 AV conduction versus complete heart block T wave inversions lateral leads Right bundle branch block morphology Electronically signed by : SHAYNE TORRES, 06/01/2024 23:07:35
[2024-06-01 14:58] LABS: D-Dimer 0.66 ug/mL (0.0-0.5)
[2024-06-01 15:05] LABS: Thyroid Stimulating Hormone 5.63 uIU/mL (0.465-4.68)
--- NOTE | 2024-06-01 15:07 | ECG_ITS ---
APPROVED REPORT Exam: Resting ECG HR:37 bpm ECG Measurements Heart Rate 37 AXES OK 269 P 87 QRSd 146 QRS -3 QT 523 T 158 QTc 441 Conclusion 2-1 AV block Sinus bradycardia Right bundle branch block morphology Electronically signed by : SHAYNE TORRES, 06/01/2024 23:08:02
--- NOTE | 2024-06-01 15:09 | PC.NURSE ---
Dr Coburn is s/w Dr Blanton for cardiac consult
--- NOTE | 2024-06-01 15:17 | PC.NURSE ---
Called [facility] for transfer per Xu Aguiar
--- NOTE | 2024-06-01 15:39 | PC.NURSE ---
BOAT TESTER NOTIFIED OF ADMISSION
[2024-06-01 15:48] LABS: Total Cells Counted 100
[2024-06-01 15:53] LABS: Eosinophils % 1 % (0-3); Free T4 (Free Thyroxine) 0.92 ng/dl (0.78-2.19); Lymphocytes % 35 % (10-50); Monocytes % 8 % (2-9); Neutrophils % 56 % (42-76); Platelet Estimate Normal; RBC Morphology Normal
[2024-06-01 16:00] LABS: HIV Combo NEGATIVE (Negative)
[2024-06-01 16:03] LABS: NT Pro Brain Natriuretic Pep. 1310 pg/mL (0-450)
[2024-06-01 16:08] LABS: Hepatitis C Ab Qual. W/ RFX NEGATIVE (Negative)
--- NOTE | 2024-06-01 16:25 | PC.NURSE ---
Pt retrieved from ER. Transported via wheel chair. Tolerated well, pt in bed with call light in reach.
[2024-06-01] MEDS: BUMETANIDE 1MG/4ML VIAL 1 MG IV (17:27)
--- NOTE | 2024-06-01 17:27 | P.HP_ITS ---
History of Present Illness *Admission Date: 06/01/24 *Reason for visit:: Weakness, variable heart rate *History of present illness: 88-year-old male with history of CABG, COPD. Recently had carotid stent placed on May 20 at [facility]. Presented because of worsening weakness and e rratic heart rate over the past 2 to 3 days. States has been more weak with increased shortness of breath. Having a harder time getting around with his rollator. This is worsened over the past 2 to 3 days. Noted today to have irregular heart rate with heart rate fluctuating from 30-90 at home. Denies cough, congestion, fever, syncope, loss of consciousness. No known sick contacts. On evaluation in the ED, patient found to be hypertensive with systolics of 200. Heart rate fluctuating with EKG obtained showing 2:1 heart block. Labs otherwise unremarkable. Cardiology was consulted, recommended nitroprusside and dopamine. Patient requested transfer to [facility] however results were his train clerk is. They were contacted and accepted patient but have no beds at this time. Recommended Cardene drip for hypertensive urgency. Prior to drips being initiated, blood pressure improved. Medicine consulted for admission while awaiting possible transfer. On my evaluation, patient is pleasant and at his baseline level of function. Family at bedside helps supplement history. Blood pressure improved with systolics of 150 on monitor at time of my evaluation. Heart rate in sinus rh ythm with intermittent block. Does not sustained heart rate less than 40 for more than a few seconds. BNP was evaluated and is found to be elevated. Concern for component of volume overload. Administering 1 mg Bumex IV. Weaning oxygen. Weaned to 1 L nasal cannula during my evaluation. Denies any shortness of breath. [facility] Disclaimer: The information contained in this section may have been updated after the patient was seen, as this information can be updated by other users. Medical History Pulmonary embolism Paraseptal emphysema Spinal compression fracture Macular degeneration CVA (cerebral vascular accident) Myocardial infarction Hyperlipidemia Hypertension Hernia Surgical History Hx of kyphoplasty History of cardiac cath Hx of CABG History of carotid endarterectomy History of appendectomy Family History No significant family history Social History Smoking Status: Former smoker how long ago did patient quit smokin years ago alcohol intake: never current occupational status: retired Travel in the last 8 weeks: None Have you lived/traveled outside [place] in past 30 days?: No Contact w/someone who lives/traveled outside [place] past 30 days?: No Exposure to someone with infectious disease in past 14 days?: No Do you have a fever (greater than 100.4 F or 38 C)?: No Have you tested positive for COVID-19: No Exposed to someone with COVID-19 in past 14 days?: No Do you have a sore throat?: No Do you have a cough?: No Do you have any weakness?: No Are you experiencing any nausea/vomitting?: No Do you have any diarrhea?: No Are you experiencing any unusual bleeding?: No Do you have any muscle aches/pain?: No Do you have any abdominal pain?: No Are you experiencing loss of taste or smell?: No Other Medical History Have you received the Flu Vaccine for this season: Yes Have you received the Pneumonia Vaccine: Yes Review of Systems Review of Systems Review of systems (narrative): 14 point review of systems performed, pertinent positives and negatives as per HPI Constitutional Constitutional: Reports weakness *Neurologic Neurologic: Reports system reviewed and no additional complaints, except as documented, Reports as per HPI and Reports weakness Meds Home Medications and Allergies Home Medications ?Medication ?Instructions ?Recorded ?Confirmed ?Type clopidogrel 75 mg tablet 75 mg PO HS 12/03/22 06/01/24 History nitroglycerin 0.4 mg sublingual 0.4 mg sublingual Q5M PRN Chest 12/03/22 06/01/24 History tablet Pain simvastatin 20 mg tablet 20 mg PO HS 12/03/22 06/01/24 History bumetanide 0.5 mg tablet 0.5 mg PO DAILY 01/02/24 06/01/24 History apixaban 5 mg tablet (Eliquis) 5 mg PO BID 30 days #60 tabs 02/29/24 06/01/24 Rx lansoprazole 30 mg capsule,delayed 30 mg PO DAILY 02/29/24 06/01/24 History release lisinopril 20 mg tablet 20 mg PO DAILY 06/01/24 06/01/24 History New Prescriptions to Start Prescriptions: Allergies Allergy/AdvReac Type Severity Reaction Status Date / Time No Known Allergies Allergy Verified 04/12/24 11:51 Exam Data for Last 24 hours Vital signs and Labs for Last 24 Hours: Temp Pulse Resp BP Pulse Ox O2 Del Method O2 Flow Rate 97.9 F 38 L 15 142/47 H 96 Nasal Cannula 2 06/01/24 16:16 06/01/24 16:16 06/01/24 16:16 06/01/24 16:16 06/01/24 16:00 06/01/24 16:16 06/01/24 16:16 Laboratory Results - last 24 hr 06/01/24 14:00: WBC 7.5, RBC 4.84, Hgb 15.2, Hct 45.4, MCV 93.8, MCH 31.4 H, M CHC 33.5, RDW 14.4, Plt Count 258, MPV 10.2, Neut % (Auto) 56.4, Lymph % (Auto) 33.9, [place] % (Auto) 7.8, Eos % (Auto) 0.8, Baso % (Auto) 0.7, Neut # (Auto) 4.2, Lymph # (Auto) 2.6, [place] # (Auto) 0.6, Eos # (Auto) 0.1, Baso # (Auto) 0.1, Total Counted 100, Neutrophils % (Manual) 56, Lymphocytes % (Manual) 35, Monocytes % (Manual) 8, Eosinophils % (Manual) 1, Platelet Estimate Normal, RBC Morphology Normal, D-Dimer 0.66 H, Sodium 141, Potassium 4.0, Chloride 103, Carbon Dioxide 28, Anion Gap 14.0, BUN 20, Creatinine 0.90, Estimated Creat Clear 53, Estimated GFR 80, Est GFR ( Amer) 97, Glucose 124 H, Calcium 9.7, Magnesium 2.1, Total Bilirubin 0.6, AST 34, ALT 22, Alkaline Phosphatase 84, Troponin I 0.04 H, NT-Pro-B Natriuret Pep 1310 H, Total Protein 8.4 H D, Albumin 4.7, Globulin 3.7 H, Albumin/Globulin Ratio 1.3, TSH 5.63 H, Free T4 0.92, HCV Ab SERGIO w/Rflx PCR Qn Negative, HIV Ag/Ab Combo Qual Negative I & O for Last 24 hours: Intake & Output 05/29/24 05/30/24 05/31/24 06/01/24 23:59 23:59 23:59 23:59 Output Total 0 / 0 Balance 0 / 0 Weight 70.307 kg Constitutional Constitutional: no acute distress, average body habitus, chronically ill appearing and cooperative *Routine HEENT Exam Head: Present normocephalic and atraumatic Eye: Present EOMI, PERRL and normal accommodation ENT: Present mucous membranes moist *Routine Neck Exam Neck: Present supple, full ROM and trachea midline *Routine Respiratory Exam Respiratory: Present prolonged expiratory phase and normal respiratory effort; Absent rhonchi, wheezes or crackles *Routine Cardiovascular Exam Cardiovascular: Present irregular rhythm Comments: Normal sinus rhythm with intermittent bradycardia *Routine Abdominal Exam Abdominal: Present tenderness, distended and wound *Routine Rectal Exam Rectal:: other *Routine Genitalia Exam Genitalia:: deferred *Routine Extremities Exam Extremities: Present edema (Trace to knees), full ROM and normal capillary refill *Routine Skin Exam Skin: Present dry, warm and wounds *Routine Neurological Exam Neurological: Present alert, oriented X3, normal reflexes, moving all extrem ities and normal speech; Absent altered mental status Routine Psychiatric Exam Psychiatric: Present normal affect and cooperative Assessment and Plan *Assessment and plan (1) High degree atrioventricular block: Status: Acute Category: Medical Code(s): I44.39 - Other atrioventricular block (2) Symptomatic bradycardia: Status: Acute Category: Medical Code(s): R00.1 - Bradycardia, unspecified (3) Hypertension: Status: Acute Category: Medical Code(s): I10 - Essential (primary) hypertension (4) Hyperlipidemia: Status: Acute Category: Medical Code(s): E78.5 - Hyperlipidemia, unspecified (5) Debility: Status: Acute Category: Medical Code(s): R53.81 - Other malaise (6) Weakness: Status: Acute Category: Medical Code(s): R53.1 - Weakness (7) CVA (cerebral vascular accident): Status: Chronic Category: Medical Code(s): I63.9 - Cerebral infarction, unspecified (8) Carotid stenosis: Status: Acute Category: Medical Code(s): I65.29 - Occlusion and stenosis of unspecified carotid artery Plan Mr. Neumann is an 88-year-old male with history of CABG, COPD, on oxygen intermittently during the day and 3 L at night. Had a recent stenting of carotid artery stenosis. Presented to the ER because of complaint of weakness and significant variability in his heart rate. Weakness is gotten worse over the past 3 days. On evaluation, found to have intermittent 2-1 AV block. In conjunction with a symptomatic bradycardia, medicine was consulted for admiss ion. Discussed case with ER provider, request admission for monitoring on telemetry and possible treatment along with consideration for pacemaker placement. Patient requested [facility], currently on a wait list. I agreed to admit for further care. Monitoring on telemetry. Blood pressure showing improvement by the time he got to the floor. Will consider dopamine drip if patient develops symptomatic bradycardia with rate less than 40. Necessitating inpatient care. 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 Improved to systolics 140- 150. Heart rate variable from 30s to 80s. -Patient not on any pipe blockading medications. No beta-blockers or calcium channel blockers. Monitor on continuous telemetry. If heart rate consistently below 40, will initiate dopamine 5 mcg/kg/min -Holding on nicardipine or nitroprusside drip due to improvement in blood pressu re. -Resume home lisinopril 20 mg daily, consider 10 mg dose tonight if blood pressure increases. Continue home Plavix 75 mg nightly. Holding Eliquis in anticipation of possible pacemaker placement. -Bridge anticoagulation with Lovenox 1 mg/kg twice daily -BNP elevated above thousand, initiate Bumex 1 mg IV once. Component of HFpEF. Last echo obtained at our institution was in 2022 showing heart failure with preserved ejection fraction. Will obtain records from [facility] for recent echo. If unable to get records, will repeat echocardiogram Monday morning -Cardiology consulted to evaluate Monday for possible pacemaker placement; awaiting possible transfer to [facility] at patient's request. No beds available at this time -Kidney function normal with BUN 20, creatinine 0.9. Hemoglobin normal at 15. TSH slightly above normal at 5.6. Troponin 0.04. Repeat CBC, CMP, magnesium ordered for the morning. Chronic oxygen requirement: Baseline 2 L as needed during the day, 3 L at night. Satting mid 90s on 2 L currently. Will wean as tolerated. GERD: Continue home PPI History of CVA with mild cognitive impairment. Continue with day night routine. Minimize disruptions at night. Caution with sedating medications at a risk for delirium. Full code Hold Eliquis, bridge with lovenox 1mg/kg Cardiac diet
[2024-06-01] MEDS: ENOXAPARIN 100MG/ML SYRINGE 70 MG SUBCUT (17:51)
--- NOTE | 2024-06-01 18:05 | PC.NURSE ---
Per MD, pt is to wear 3L nasal cannula for sleep, or keep pts O2 sats 90% or above.
[2024-06-01 18:17] LABS: Troponin I 0.06 ng/ml (0.00-0.034)
[2024-06-01] MEDS: PRAVASTATIN 40MG TAB 40 MG PO (20:29)
[2024-06-01] MEDS: PANTOPRAZOLE 40MG TABLET 40 MG PO (20:29)
[2024-06-01 20:44] LABS: Troponin I 0.07 ng/ml (0.00-0.034)
[2024-06-02] VITALS (9 sets, daily range): BP systolic 115–159; BP diastolic 48–61; PULSE 40–62; RESP 14–21; TEMP 36.4–36.7; O2SAT 90–94; BMI 25.2
[2024-06-02] MEDS: ENOXAPARIN 80MG/0.8ML SYRINGE 70 MG SUBCUT ×2 (06:31→18:16)
[2024-06-02 08:00] LABS: Basophils # 0.1 K/mm3 (0-0.2); Basophils % 0.7 % (0.1-2.0); Eosinophils # 0.1 K/mm3 (0.0-0.4); Eosinophils % 0.9 % (0.1-12.0); Hematocrit 41.6 % (42.0-52.0); Lymphocytes # 2.5 K/mm3 (0.7-4.5); Lymphocytes % 33.1 % (10-50); Mean Corpuscular HGB Conc 33.7 g/dL (31.8-35.4); Mean Corpuscular Hemoglobin 31.2 pg (27.0-31.2); Mean Corpuscular Volume 92.7 fl (80-94); Mean Platelet Volume 10.4 fl (7.4-10.4); Monocytes # 0.6 K/mm3 (0.1-1.0); Monocytes % 8.3 % (1.7-9.3); Neutrophils # 4.3 K/mm3 (1.8-7.8); Neutrophils % 56.7 % (37.0-80.0); Platelet Count 234 K/mm3 (142-424); Red Blood Count 4.49 M/mm3 (4.60-6.20); Red Cell Distribution Width 14.3 % (11.5-17.5); White Blood Count 7.6 K/mm3 (4.8-10.8)
[2024-06-02 08:05] LABS: Albumin Level 3.9 g/dl (3.5-5.0); Chloride 104 mmol/L (98-107); Potassium 3.6 mmoL/L (3.5-5.1); Sodium 140 mmol/L (136-145)
[2024-06-02 08:07] LABS: Blood Urea Nitrogen 21 mg/dl (9-20); Creatinine Clearance Estimated 51 mL/min (50-200); Estimated Glomerular Filt Rate 71 ml/min (>60); GFR (African American) 86 ML/MIN (>60)
[2024-06-02 08:08] LABS: Alanine Aminotransferase 17 U/L (12-78); Albumin/Globulin Ratio 1.3 (1.1-1.8); Alkaline Phosphatase 80 U/L (38-126); Anion Gap 11.6 mEq/L (5-15); Aspartate Amino Transferase 29 U/L (17-59); Bilirubin,Total 0.9 mg/dl (0.2-1.3); Calcium 9.3 mg/dl (8.4-10.2); Carbon Dioxide 28 mmol/L (22.0-30.0); Globulin 2.9 g/dL (1.3-3.2); Glucose 98 mg/dl (74-100); Magnesium 1.9 mg/dl (1.6-2.3); Total Protein,Serum 6.8 g/dl (6.3-8.2)
[2024-06-02] MEDS: CLOPIDOGREL 75MG TAB 75 MG PO (09:07)
[2024-06-02] MEDS: LISINOPRIL 20MG TABLET 20 MG PO (09:07)
--- NOTE | 2024-06-02 09:41 | HMH.PHAINT1 ---
Pharmacy Intervention Comments: MEDICATION RECONCILIATION COMPLETE USING LIST FROM RECENT PULMONOLOGY OFFICE VISIT NOTE AND EXTERNAL PHARMACY FILL HISTORY.
[2024-06-02] MEDS: BUMETANIDE 1 MG TABLET PO (12:28)
--- NOTE | 2024-06-02 13:15 | EXP.ACUTE.PN ---
Subjective *Date: 06/02/24 *Time: 16:55 Interval history: Stable this morning on 1 L oxygen. Denies chest pain. Heart rate into the 40s overnight but otherwise had minimal episodes of heart block. Denies any chest pain or shortness of breath. No nausea or vomiting. Blood pressure 124/48 on morning rounds. Heart rate 50 Medical Exam Vital signs and Labs for Last 24 Hours: Vital Signs Temp Pulse Pulse Resp BP BP Pulse Ox 06/02/24 11:00 06/02/24 10:00 40 L 18 115/55 L 93 L 06/02/24 09:00 06/02/24 08:00 60 06/02/24 08:00 57 L 18 159/61 H 93 L 06/02/24 08:00 06/02/24 06:41 06/02/24 06:00 50 L 21 124/48 L 92 L 06/02/24 05:00 06/02/24 04:00 40 L 06/02/24 04:00 97.8 F 50 L 15 119/52 L 91 L 06/02/24 03:00 06/02/24 02:00 97.5 F L 55 L 19 116/52 L 93 L 06/02/24 02:00 50 L 90 L 06/02/24 01:00 06/02/24 00:00 50 L 18 138/59 L 90 L 06/01/24 23:00 06/01/24 22:00 51 L 15 109/54 L 94 L 06/01/24 20:42 06/01/24 20:00 70 06/01/24 20:00 59 L 91 L 06/01/24 20:00 97.7 F 62 17 141/65 H 92 L 06/01/24 18:43 06/01/24 18:00 72 18 143/67 H 91 L 06/01/24 17:00 06/01/24 16:16 97.9 F 38 L 15 142/47 H 06/01/24 16:00 98.0 F 41 L 17 162/63 H 94 L 06/01/24 16:00 52 L 13 96 06/01/24 15:57 06/01/24 15:30 39 L 14 165/55 H 96 06/01/24 15:00 52 L 19 160/61 H 95 06/01/24 14:54 54 L 14 163/62 H 95 06/01/24 14:30 17 175/63 H 95 06/01/24 14:01 94 H 17 207/97 H 94 L 06/01/24 13:55 97.9 F 91 H 18 207/97 H 93 L O2 Del Method O2 Flow Rate 06/02/24 11:00 Nasal Cannula 1 06/02/24 10:00 Nasal Cannula 1 06/02/24 09:00 Room Air 06/02/24 08:00 06/02/24 08:00 Nasal Cannula 1 06/02/24 08:00 Nasal Cannula 1 06/02/24 06:41 Nasal Cannula 1 06/02/24 06:00 Nasal Cannula 1 06/02/24 05:00 Nasal Cannula 1 06/02/24 04:00 06/02/24 04:00 Nasal Cannula 1 06/02/24 03:00 Nasal Cannula 1 06/02/24 02:00 Nasal Cannula 1 06/02/24 02:00 Nasal Cannula 1 06/02/24 01:00 Nasal Cannula 1 06/02/24 00:00 Nasal Cannula 1 06/01/24 23:00 Nasal Cannula 1 06/01/24 22:00 Nasal Cannula 1 06/01/24 20:42 Nasal Cannula 1 06/01/24 20:00 06/01/24 20:00 Nasal Cannula 1 06/01/24 20:00 Nasal Cannula 1 06/01/24 18:43 Nasal Cannula 1 06/01/24 18:00 Nasal Cannula 1 06/01/24 17:00 Nasal Cannula 1 06/01/24 16:16 Nasal Cannula 2 06/01/24 16:00 Nasal Cannula 1 06/01/24 16:00 Nasal Cannula 2 06/01/24 15:57 Nasal Cannula 1 06/01/24 15:30 Nasal Cannula 2 06/01/24 15:00 Nasal Cannula 2 06/01/24 14:54 Nasal Cannula 2 06/01/24 14:30 06/01/24 14:01 Room Air 06/01/24 13:55 Room Air Intake and Output 06/01/24 06/02/24 06/02/24 23:59 07:59 15:59 Intake Total 220 / 220 220 / 220 Output Total 200 / 800 600 / 600 Balance 20 / -580 -600 / -380 220 / -380 Intake: Intake, Oral Amount 220 / 220 220 / 220 Output: Output, Urine Amount 200 / 800 600 / 600 Other: Weight 68.538 kg Patient Weight 06/02/24 23:59 Weight 68.538 kg Laboratory Results - last 24 hr 06/01/24 14:00: WBC 7.5, RBC 4.84, Hgb 15.2, Hct 45.4, MCV 93.8, MCH 31.4 H, MCHC 33.5, RDW 14.4, Plt Count 258, MPV 10.2, Neut % (Auto) 56.4, Lymph % (Auto) 33.9, [place] % (Auto) 7.8, Eos % (Auto) 0.8, Baso % (Auto) 0.7, Neut # (Auto) 4.2, Lymph # (Auto) 2.6, [place] # (Auto) 0.6, Eos # (Auto) 0.1, Baso # (Auto) 0.1, Total Counted 100, Neutrophils % (Manual) 56, Lymphocytes % (Manual) 35, Monocytes % (Manual) 8, Eosinophils % (Manual) 1, Platelet Estimate Normal, RBC Morphology Normal, D-Dimer 0.66 H, Sodium 141, Potassium 4.0, Chloride 103, Carbon Dioxide 28, Anion Gap 14.0, BUN 20, Creatinine 0.90, Estimated Creat Clear 53, Estimated GFR 80, Est GFR ( Amer) 97, Glucose 124 H, Calcium 9.7, Magnesium 2.1, Total Bilirubin 0.6, AST 34, ALT 22, Alkaline Phosphatase 84, Troponin I 0.04 H, NT-Pro-B Natriuret Pep 1310 H, Total Protein 8.4 H D, Albumin 4.7, Globulin 3.7 H, Albumin/Globulin Ratio 1.3, TSH 5.63 H, Free T4 0.92, HCV Ab SERGIO w/Rflx PCR Qn Negative, HIV Ag/Ab Combo Qual Negative 06/01/24 17:45: Troponin I 0.06 H 06/01/24 20:15: Troponin I 0.07 H 06/02/24 06:30: Sodium 140, Potassium 3.6, Chloride 104, Carbon Dioxide 28, Anion Gap 11.6, BUN 21 H, Creatinine 1.00, Estimated Creat Clear 51, Estimated GFR 71, Est GFR ( Amer) 86, Glucose 98 D, Calcium 9.3, Magnesium 1.9, Total Bilirubin 0.9, AST 29, ALT 17, Alkaline Phosphatase 80, Total Protein 6.8, Albumin 3.9 D, Globulin 2.9, Albumin/Globulin Ratio 1.3 06/02/24 07:10: WBC 7.6, RBC 4.49 L, Hgb 14.0 L, Hct 41.6 L, MCV 92.7, MCH 31.2, MCHC 33.7, RDW 14.3, Plt Count 234, MPV 10.4, Neut % (Auto) 56.7, Lymph % (Auto) 33.1, [place] % (Auto) 8.3, Eos % (Auto) 0.9, Baso % (Auto) 0.7, Neut # (Auto) 4.3, Lymph # (Auto) 2.5, [place] # (Auto) 0.6, Eos # (Auto) 0.1, Baso # (Auto) 0.1 I & O for Labs for Last 24 Hours: Intake & Output 05/30/24 05/31/24 06/01/24 06/02/24 23:59 23:59 23:59 23:59 Intake Total 220 / 220 220 / 220 Output Total 200 / 800 600 / 600 Balance 20 / -580 -380 / -380 Weight 70.307 kg 68.538 kg Constitutional: Present no acute distress, average body habitus and chronically ill appearing Head: Present atraumatic and normocephalic ENT: Present normal exam Neck: Present normal inspection Respiratory: Present normal respiratory effort; Absent accessory muscle use, rhonchi, wheezes or crackles Cardiac: Present Reg Rate and Rhythm and No Murmur GI: Present soft and normal bowel sounds; Absent distention or tenderness Rectal (male): Present deferred Extremities: Present normal inspection and full ROM; Absent edema Skin: Present intact; Absent erythema Neuro: Present Grossly Intact, alert, awake, oriented x 3 and moves all extremities Assessment and Plan *Assessment and plan (1) High degree atrioventricular block: Status: Acute Category: Medical Code(s): I44.39 - Other atrioventricular block (2) Symptomatic bradycardia: Status: Acute Category: Medical Code(s): R00.1 - Bradycardia, unspecified (3) Hypertension: Status: Acute Category: Medical Code(s): I10 - Essential (primary) hypertension (4) Hyperlipidemia: Status: Acute Category: Medical Code(s): E78.5 - Hyperlipidemia, unspecified (5) Debility: Status: Acute Category: Medical Code(s): R53.81 - Other malaise (6) Weakness: Status: Acute Category: Medical Code(s): R53.1 - Weakness (7) CVA (cerebral vascular accident): Status: Chronic Category: Medical Code(s): I63.9 - Cerebral infarction, unspecified (8) Carotid stenosis: Status: Acute Category: Medical Code(s): I65.29 - Occlusion and stenosis of unspecified carotid artery Plan Mr. Neumann is an 88-year-old male with history of CABG, COPD, on oxygen intermittently during the day and 3 L at night. Had a recent stenting of carotid artery stenosis. Presented to the ER because of complaint of weakness and significant variability in his heart rate. Weakness is gotten worse over the past 3 days. On evaluation, found to have intermittent 2-1 AV block. In conjunction with a symptomatic bradycardia, medicine was consulted for admission. Discussed case with ER provider, request admission for monitoring on telemetry and possible treatment along with consideration for pacemaker placement. Patient requested [facility], currently on a wait list. I agreed to admit for further care. Monitoring on telemetry. Blood pressure better this morning. Currently not on any drips. Continues to require inpatient management. Cardiology to evaluate in the morning if patient does not transfer before then. 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 Vitals this morning with systolic blood pressure in the 120s. Heart rate in the 50s. -Patient not on any pipe blockading medications. No beta-blockers or calcium channel blockers. Monitor on continuous telemetry. If heart rate consistently below 40, will initiate dopamine 5 mcg/kg/min -Holding on nicardipine or nitroprusside drip due to improvement in blood pressure. Holding dopamine drip as heart rate is above 40 -Resume home lisinopril 20 mg daily, Continue home Plavix 75 mg nightly. Holding Eliquis in anticipation of possible pacemaker placement. -Bridge anticoagulation with Lovenox 1 mg/kg twice daily -BNP elevated above thousand, increase Bumex to 1 mg p.o. daily. Concern for component of HFpEF. Reviewed records from [facility] from recent carotid stent, had an echo performed showing preserved EF, elevated RVSP. - Cardiology consulted to evaluate Monday for possible pacemaker placement; awaiting possible transfer to [facility] at patient's request. No beds available at this time -Kidney function normal with BUN 21, creatinine 1.0. Hemoglobin normal at 14. TSH slightly above normal at 5.6. Troponin 0.04. Repeat CBC, CMP, magnesium ordered for the morning. Chronic oxygen requirement: Baseline 2 L as needed during the day, 3 L at night. Satting mid 90s on 1 L currently. Will wean as tolerated. GERD: Continue home PPI History of CVA with mild cognitive impairment. Continue with day night routine. Minimize disruptions at night. Caution with sedating medications at a risk for delirium. Full code Hold Eliquis, bridge with lovenox 1mg/kg Cardiac diet
--- NOTE | 2024-06-02 13:34 | HMH.PTEV ---
Physical Therapy Evaluation Rehab PT IP Evaluation Start: 06/02/24 10:50 Freq: ONCE Status: Active Protocol: Document 06/02/24 13:08 [email or web address] (Rec: 06/02/24 13:34 [email or web address] [id number]) Subjective/History History History Pt. is an 87 yo male who presents to 2nd floor [facility] Inpatient setting for the Inpatient Physical Therapy initial evaluation this date( 06/02/24). Pt. c/o increased fatigue, shortness of breath, and difficulty performing ADL function. Pt. reports I'm tired all the time. Pt. c/o having increasing difficulty that has been worsening w/ participating in ADLs at home d/t fatigue and weakness. Pt. reports having a consult at [facility] for surgery to have pacemaker put in secondary to cardiac arrhythmia. Pt. reports he is on supplemental O2 at home and was checking his O2 status when his resting HR was fluctuating between 30 and 84 bpm. Secondary to the fluctuation pt. deemed it appropriate to admit self to hospital. Pt. reports he lives at home w/ his and his daughter comes to visit from time to time. Pt.'s daughter was present at bedside upon initial evaluation at this time. Pt.'s daughter was giving head nods(meaning yes) when PT was asking pt. on requiring assistance at home w / functional mobility. PMH includes pulmonary embolism, pneumonia, sepsis, Hx of kyphoplasty, history of cardiac cath, CABG, carotid endarterectomy, appendectomy. Subjective Subjective Pt. reports, I think I'm going to [facility] for a pacemaker. PT discussed w/ MD on transfer from [facility] to [facility] for surgical procedure for pacemaker implant. Functional mobility and ambulation assessment limited to bed mobility this date due to poor oxygen saturation reading <90% on 2-3L NC. New diagnosis of cancer in past 12 No months? [facility] How much help from another person do you currently need... Turning from your back to your side A little while in a flat bed without using bedrails? Moving from lying on back to sitting on A little the side of a flat bed without using bedrails? Moving to and from a bed to a chair ( A lot including a wheelchair)? Standing up from a chair using your arms A lot ? (e.g., wheelchair, bedside chair) Walking in hospital room? A lot Climbing 3-5 steps with a railing? A lot Mobility Score [address] [facility] Mobility Calculator Mobility 4 Move to chair/ commode Rehab PT IP Eval Objective Appearance Patient Behavior Appropriate,Cooperative Patient Orientation Person,Place,Time,Situation Difficulty following instructions none Speech Pattern Clear,Appropriate,Coherent Balance Ability to Arise Able, uses arms to help Sitting Balance Steady, safe Dynamic Sitting Balance Ability Good Transfers Bed Transfer Ability Contact Guard/Hand Hold ROM RLE PT ROM Status WFL LLE PT ROM Status WFL MMT RLE PT MMT WFL LLE PT MMT WFL Rehab PT IP prob,goals,plan Problems Date of Evaluation: 06/02/24 PT IP Problems Bed Mobility,Transfers,Gait, Self care,Safety Rehab Potential Rehab Potential Good Equipment Needs Assistive Devices Rolling / Wheeled Walker Plan PT Intervention Plan Bed Mobility,Transfers,Gait, Balance,Self care,Safety, Therapeutic Exercise PT Plan Frequency BID Duration LOS Discharge Goals Bed Transfer Ability Supervision/Stand by Discharge Plan PT Discharge Plan Pt will benefit from skilled PT while at [facility] to assist with functional transfers and generalized strengthening as tolerated. Per MD, pt. plans to discharge from [facility] to [facility] for pacemaker placement once medically stable. If pt does not discharge to [facility], PT current recommendations would be short-term rehab placement to improve functional mobility and strength. Without skilled PT treatment pt is at an increased risk of falls, fractures, wounds and increased burden of care. Eval Complexity Eval Charge Codes 74209 - Low Complexity PHYSICIAN CERTIFICATION: I certify the specified therapy services for Junaid Awan SR are required, authorized, and reviewed every 30 days.
--- NOTE | 2024-06-02 16:46 | P.DS_ITS ---
General Admission date:: 06/01/24 Discharge date: 06/02/24 HPI HPI HPI: 88-year-old male with history of CABG, COPD. Recently had carotid stent placed on May 20 at [facility]. Presented because of worsening weakness and erratic heart rate over the past 2 to 3 days. States has been more weak with increased shortness of breath. Having a harder time getting around with his rollator. This is worsened over the past 2 to 3 days. Noted today to have irregular heart rate with heart rate fluctuating from 30-90 at home. Denies cough, congestion, fever, syncope, loss of consciousness. No known sick con tacts. On evaluation in the ED, patient found to be hypertensive with systolics of 200. Heart rate fluctuating with EKG obtained showing 2:1 heart block. Labs otherwise unremarkable. Cardiology was consulted, recommended nitroprusside and dopamine. Patient requested transfer to [facility] however results were his field technical support consultant is. They were contacted and accepted patient but have no beds at this time. Recommended Cardene drip for hypertensive urgency. Prior to drips being initiated, blood pressure improved. Medicine consulted for admission while awaiting possible transfer. On my evaluation, patient is pleasant and at his baseline level of function. Family at bedside helps supplement history. Blood pressure improved with systolics of 150 on monitor at time of my evaluation. Heart rate in sinus rhythm with intermittent block. Does not sustained heart rate less than 40 for more than a few seconds. BNP was evaluated and is found to be elevated. Concern for component of volume overload. Administering 1 mg Bumex IV. Weaning oxygen. Weaned to 1 L nasal cannula during my evaluation. Denies any shortness of breath. Hospital Course Hospital Course Hospital Course: Mr. Awan is an 88-year-old male with history of CABG, COPD, on oxygen intermittently during the day and 3 L at night. Had a recent stenting of carotid artery stenosis. Presented to the ER because of complaint of weakness and significant variability in his heart rate. Weakness is gotten worse over the past 3 days. On evaluation, found to have intermittent 2-1 AV block. In conjunction with a symptomatic bradycardia, medicine was consulted for admission. Discussed case with ER provider, request admission for monitoring on telemetry and possible treatment along with consideration for pacemaker placement. Patient requested [facility], currently on a wait list. I agreed to admit for further care. Monitoring on telemetry. Blood pressure showing improvement by the time he got to the floor. Will consider dopamine drip if patient develops symptomatic bradycardia with rate less than 40. Necessitating inpatient care. 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 Improved to systolics 140- 150. Heart rate variable from 30s to 80s. -Patient not on any pipe blockading medications. No beta-blockers or calcium channel blockers. Monitor on continuous telemetry. If heart rate consistently below 40, will initiate dopamine 5 mcg/kg/min -Holding on nicardipine or nitroprusside drip due to improvement in blood pressure. -Resume home lisinopril 20 mg daily, consider 10 mg dose tonight if blood pressure increases. Continue home Plavix 75 mg nightly. Holding Eliquis in anticipation of possible pacemaker placement. -Bridge anticoagulation with Lovenox 1 mg/kg twice daily -BNP elevated above thousand, initiate Bumex 1 mg IV once. Component of HFpEF. Last echo obtained at our institution was in 2022 showing heart failure with preserved ejection fraction. Will obtain records from [facility] for recent echo. If unable to get records, will repeat echocardiogram Monday morning -Cardiology consulted to evaluate Monday for possible pacemaker placement; awaiting possible transfer to [facility] at patient's request. No beds available at this time -Kidney function normal with BUN 20, creatinine 0.9. Hemoglobin normal at 15. TSH slightly above normal at 5.6. Troponin 0.04. Repeat CBC, CMP, magnesium ordered for the morning. Chronic oxygen requirement: Baseline 2 L as needed during the day, 3 L at night. Satting mid 90s on 2 L currently. Will wean as tolerated. GERD: Continue home PPI History of CVA with mild cognitive impairment. Continue with day night routine. Minimize disruptions at night. Caution with sedating medications at a risk for delirium. Hold Eliquis, bridge with lovenox 1mg/kg Exam Data for Last 24 hours Vital signs and Labs for Last 24 Hours: Temp Pulse Resp BP Pulse Ox O2 Del Method O2 Flow Rate 97.8 F 50 L 18 115/55 L 93 L Room Air 1 06/02/24 04:00 06/02/24 12:00 06/02/24 10:00 06/02/24 10:00 06/02/24 10:00 06/02/24 15:00 06/02/24 13:00 Laboratory Results - last 24 hr 06/01/24 17:45: Troponin I 0.06 H 06/01/24 20:15: Troponin I 0.07 H 06/02/24 06:30: Sodium 140, Potassium 3.6, Chloride 104, Carbon Dioxide 28, Anion Gap 11.6, BUN 21 H, Creatinine 1.00, Estimated Creat Clear 51, Estimated GFR 71, Est GFR ( Amer) 86, Glucose 98 D, Calcium 9.3, Magnesium 1.9, Total Bilirubin 0.9, AST 29, ALT 17, Alkaline Phosphatase 80, Total Protein 6.8, Albumin 3.9 D, Globulin 2.9, Albumin/Globulin Ratio 1.3 06/02/24 07:10: WBC 7.6, RBC 4.49 L, Hgb 14.0 L, Hct 41.6 L, MCV 92.7, MCH 31.2, MCHC 33.7, RDW 14.3, Plt Count 234, MPV 10.4, Neut % (Auto) 56.7, Lymph % (Auto) 33.1, Haskell % (Auto) 8.3, Eos % (Auto) 0.9, Baso % (Auto) 0.7, Neut # (Auto) 4.3, Lymph # (Auto) 2.5, Haskell # (Auto) 0.6, Eos # (Auto) 0.1, Baso # (Auto) 0.1 I & O for Last 24 hours: Intake & Output 05/30/24 05/31/24 06/01/24 06/02/24 23:59 23:59 23:59 23:59 Intake Total 220 / 220 580 / 580 Output Total 200 / 800 1050 / 1050 Balance 20 / -580 -470 / -470 Weight 70.307 kg 68.538 kg Constitutional Constitutional: no acute distress, thin, chronically ill appearing and cooperative *Routine HEENT Exam Head: Present normocephalic and atraumatic Eye: Present EOMI and PERRL ENT: Present mucous membranes moist *Routine Neck Exam Neck: Present supple Routine Chest/Breast/Axilla Exam Comments: Equal expansion bilaterally on chest no signs of injury no sign of pain *Routine Respiratory Exam Respiratory: Present decreased breath sounds, able to speak in complete sentences and symmetric chest movement; Absent rhonchi, wheezes or crackles *Routine Cardiovascular Exam Cardiovascular: Present RRR *Routine Abdominal Exam Abdominal: Present soft and normoactive bowel sounds; Absent tenderness *Routine Rectal Exam Patient deferred: visual exam *Routine Exam Patient deferred: penile exam *Routine Extremities Exam Extremities: Present cyanosis Comments: Able to move all extremities well Routine Back/Spine/Pelvis Exam Back/Spine: Present full ROM Comments: Patient was standing and walking without difficulty before being put back to bed *Routine Skin Exam Skin: Present intact and warm Comments: Slightly pale but with brisk capillary refill in both hands nailbeds, no edema in the lower extremities *Routine Neurological Exam Neurological: Present alert, oriented X3 and moving all extremities; Absent altered mental status Routine Psychiatric Exam Psychiatric: Present cooperative Results Data Completed and Pending Labs on day of discharge: Labs from last 24 hours 06/02/24 06/02/24 06/01/24 07:10 06:30 20:15 WBC 7.6 RBC 4.49 L Hgb 14.0 L Hct 41.6 L MCV 92.7 MCH 31.2 MCHC 33.7 RDW 14.3 Plt Count 234 MPV 10.4 Neut % (Auto) 56.7 Lymph % (Auto) 33.1 Haskell % (Auto) 8.3 Eos % (Auto) 0.9 Baso % (Auto) 0.7 Neut # (Auto) 4.3 Lymph # (Auto) 2.5 Haskell # (Auto) 0.6 Eos # (Auto) 0.1 Baso # (Auto) 0.1 Sodium 140 Potassium 3.6 Chloride 104 Carbon Dioxide 28 Anion Gap 11.6 BUN 21 H Creatinine 1.00 Estimated Creat Clear 51 Estimated GFR 71 Est GFR ( Amer) 86 Glucose 98 D Calcium 9.3 Magnesium 1.9 Total Bilirubin 0.9 AST 29 ALT 17 Alkaline Phosphatase 80 Troponin I 0.07 H Total Protein 6.8 Albumin 3.9 D Globulin 2.9 Albumin/Globulin Ratio 1.3 06/01/24 17:45 WBC RBC Hgb Hct MCV MCH MCHC RDW Plt Count MPV Neut % (Auto) Lymph % (Auto) Haskell % (Auto) Eos % (Auto) Baso % (Auto) Neut # (Auto) Lymph # (Auto) Haskell # (Auto) Eos # (Auto) Baso # (Auto) Sodium Potassium Chloride Carbon Dioxide Anion Gap BUN Creatinine Estimated Creat Clear Estimated GFR Est GFR ( Amer) Glucose Calcium Magnesium Total Bilirubin AST ALT Alkaline Phosphatase Troponin I 0.06 H Total Protein Albumin Globulin Albumin/Globulin Ratio DS: Diagnosis Discharge Diagnosis (1) High degree atrioventricular block: Status: Acute Code(s): I44.39 - Other atrioventricular block (2) Symptomatic bradycardia: Status: Acute Code(s): R00.1 - Bradycardia, unspecified (3) Hypertension: Status: Acute Code(s): I10 - Essential (primary) hypertension (4) Hyperlipidemia: Status: Acute Code(s): E78.5 - Hyperlipidemia, unspecified (5) Debility: Status: Acute Code(s): R53.81 - Other malaise (6) Weakness: Status: Acute Code(s): R53.1 - Weakness (7) CVA (cerebral vascular accident): Status: Chronic Code(s): I63.9 - Cerebral infarction, unspecified (8) Carotid stenosis: Status: Acute Code(s): I65.29 - Occlusion and stenosis of unspecified carotid artery Meds Home Medications and Allergies Home Medications ?Medication ?Instructions ?Recorded ?Confirmed ?Type clopidogrel 75 mg tablet 75 mg PO DAILY 12/03/22 06/02/24 History nitroglycerin 0.4 mg sublingual 0.4 mg sublingual Q5MINP PRN Chest 12/03/22 06/02/24 History tablet Pain simvastatin 20 mg tablet 20 mg PO HS 12/03/22 06/02/24 History apixaban 5 mg tablet (Eliquis) 5 mg PO BID 30 days #60 tabs 02/29/24 06/02/24 Rx lisinopril 20 mg tablet 20 mg PO DAILY 06/01/24 06/02/24 History bumetanide 1 mg tablet 1 mg PO DAILY #0 tabs 06/02/24 Rx enoxaparin 80 mg/0.8 mL 70 mg (0.7 mL) SQ Q12H #0 mL 06/02/24 Rx subcutaneous syringe pantoprazole 40 mg tablet,delayed 40 mg PO HS #0 tabs 06/02/24 Rx release New Prescriptions to Start Prescriptions: Allergies Allergy/AdvReac Type Severity Reaction Status Date / Time No Known Allergies Allergy Verified 04/12/24 11:51 Discharge Plan Disposition Patient Disposition: Xfer Short-Term Hosp Condition: Fair Follow up Plan Prescriptions/Medication Reconciliation: New bumetanide 1 mg Tablet 1 mg PO DAILY Qty: 0 0RF enoxaparin 80 mg/0.8 mL Syringe 70 mg SQ Q12H Qty: 0 0RF pantoprazole 40 mg Tablet,Delayed Release (Dr/Ec) 40 mg PO HS Qty: 0 0RF Continued clopidogrel 75 mg tablet 75 mg PO DAILY simvastatin 20 mg tablet 20 mg PO HS nitroglycerin 0.4 mg Tablet, Sublingual 0.4 mg SUBLINGUAL Q5MINP PRN (Reason: Chest Pain) Rx Instructions: do not exceed 3 doses per episode lisinopril 20 mg Tablet 20 mg PO DAILY Held Eliquis 5 mg tablet 5 mg PO BID 30 Days Qty: 60 4RF Hold Instructions: bridging with lovenox pending pacemaker placement Discontinued lansoprazole 30 mg capsule,delayed release(DR/EC) 30 mg PO DAILY bumetanide 0.5 mg tablet 0.5 mg PO DAILY Patient Comments: TAKE 1 TABLET BY MOUTH DAILY Problem Reconciliation Problems Reviewed?: Yes Patient Discharge Instructions ACTIVITY: Continue current activity DIET: continue same diet Patient Instructions: DI for Heart Block, DI for Bradycardia Print Language: Slovak Providers Primary Care Provider: Janis Sparks Admit Provider: yKler Paz Attending Provider: Kyler Paz
[2024-06-02] MEDS: PANTOPRAZOLE 40MG TABLET 40 MG PO (21:28)
[2024-06-02] MEDS: PRAVASTATIN 40MG TAB 40 MG PO (21:28)
[2024-06-03] VITALS (8 sets, daily range): BP systolic 124–161; BP diastolic 58–69; PULSE 50–70; RESP 16–20; TEMP 36.4–36.7; O2SAT 90–97; BMI 37.0
--- NOTE | 2024-06-03 05:33 | PC.NURSE ---
Pt awaiting bed at [facility]. v/s, ox4, at bedside. Overnight HR got down as low as 27, nurse notified, nurse went to check on pt and wake the pt from sleep. Once pt woke up HR sprung back up to 60's. Pt denied sob and chest pain. Pt stated he felt normal was just resting. Plan of care ongoing until transfer.
[2024-06-03 06:52] LABS: Basophils % 0.6 % (0.1-2.0); Eosinophils # 0.1 K/mm3 (0.0-0.4); Eosinophils % 0.9 % (0.1-12.0); Hematocrit 41.5 % (42.0-52.0); Hemoglobin 14.1 g/dL (14.1-18.0); Lymphocytes # 2.4 K/mm3 (0.7-4.5); Lymphocytes % 37.2 % (10-50); Mean Corpuscular Hemoglobin 31.8 pg (27.0-31.2); Mean Corpuscular Volume 93.5 fl (80-94); Mean Platelet Volume 10.5 fl (7.4-10.4); Monocytes # 0.6 K/mm3 (0.1-1.0); Neutrophils # 3.3 K/mm3 (1.8-7.8); Platelet Count 214 K/mm3 (142-424); Red Blood Count 4.44 M/mm3 (4.60-6.20); Red Cell Distribution Width 14.4 % (11.5-17.5); White Blood Count 6.4 K/mm3 (4.8-10.8)
[2024-06-03] MEDS: ENOXAPARIN 80MG/0.8ML SYRINGE 70 MG SUBCUT (06:55)
[2024-06-03 07:06] LABS: Sodium 139 mmol/L (136-145)
[2024-06-03 07:07] LABS: Alanine Aminotransferase 17 U/L (12-78); Albumin Level 3.7 g/dl (3.5-5.0); Albumin/Globulin Ratio 1.2 (1.1-1.8); Alkaline Phosphatase 76 U/L (38-126); Anion Gap 11.5 mEq/L (5-15); Aspartate Amino Transferase 27 U/L (17-59); Bilirubin,Total 0.9 mg/dl (0.2-1.3); Blood Urea Nitrogen 27 mg/dl (9-20); Calcium 9.2 mg/dl (8.4-10.2); Carbon Dioxide 28 mmol/L (22.0-30.0); Chloride 103 mmol/L (98-107); Creatinine Clearance Estimated 69 mL/min (50-200); Estimated Glomerular Filt Rate 63 ml/min (>60); GFR (African American) 77 ML/MIN (>60); Glucose 111 mg/dl (74-100); Magnesium 2.2 mg/dl (1.6-2.3); Potassium 3.5 mmoL/L (3.5-5.1); Total Protein,Serum 6.7 g/dl (6.3-8.2)
[2024-06-03 07:24] LABS: POC Glucose,Bedside 129 (70-110)
--- NOTE | 2024-06-03 07:49 | CA_ITS ---
APPROVED REPORT EXAM: Comprehensive 2D, Doppler, and color-flow Echocardiogram Country Printer: Taylor Albert RT(R) Ht: 5 ft 5 in Wt: 153lbs BSA: 1.77 BP: 115/55 mmHg Indications: bradycardia, ex smoker, HTN, HLD, hx CABG, recent carotid stent, 2-1 AV block, hx CVA, weakness, HFpEF. 2D Dimensions LVEF (Deleon's) 49.90 % M: 52 - 72 LV Volume 87.10 mL M: 62 - 150 LV Volume Index 49.2 mL/m2 M: 34 - 74 EF AP4 49.50 % EF AP2 51.6 % EF BP 49.9 % GL Strain -15.4 % M-Mode Dimensions RVDd 3.50 cm (0.9-2.6) LA Diam 3.70 cm (1.9-4.0) LVDd 5.21 cm (3.5-5.7) LVDs 3.84 cm (3.5-5.7) IVSd 0.80 cm (0.6-1.1) PWd 0.99 cm (0.6-1.1) EF (Teich) 51.20% FS 26.30% EDV (Teich) 130.10 mL ESV (Teich) 63.50 mL LV Diastology E Decel Time 333 (160-240 msec) E/A Ratio 0.6 Mitral Valve MV E Max Abhilash. 69.0 (40-130 cm/s) MV A Velocity 117.0 (40-130 cm/s) E/A Ratio 0.59 MV PHT 98.0 ms Tricuspid Valve TR P. Velocity 276.00 cm/s RAP Estimate 10.00 mmHg RVSP 40.50 mmHg Left Ventricle The left ventricle is normal size. The left ventricular systolic function is low normal. There is increased LV wall thickness. There is normal LV segmental wall motion. Diastolic function is indeterminate. LVEF is 50%. Right Ventricle The right ventricle is normal size. The right ventricular systolic function is normal. Atria Left atrium is mildly dilated. Right atrium is mildly dilated. There is no Doppler evidence of interatrial shunt. Aortic Valve Aortic valve is mildly thickened. There is no aortic valvular stenosis. Trace aortic regurgitation is present. Mitral Valve The mitral valve is normal in structure. No evidence of mitral valve stenosis. Trace mitral regurgitation. Tricuspid Valve Tricuspid valve is grossly normal in structure and function. Mild tricuspid regurgitation. RVSP is 30-25 mmHg. Pulmonic Valve The pulmonary valve is normal in structure. Mild pulmonic regurgitation. Great Vessels The aortic root is normal in size. IVC is normal in size and collapses >50% with inspiration. Pericardium There is no pericardial effusion. Other Information Study Quality: Fair Conclusion Low normal LV systolic function (LVEF 50%). Mild biatrial dilation. Mild TR, mild PI. Electronically signed by : Francine Qiu MD 06/03/2024 11:55:50
[2024-06-03] MEDS: CLOPIDOGREL 75MG TAB 75 MG PO (08:20)
[2024-06-03] MEDS: LISINOPRIL 20MG TABLET 20 MG PO (08:20)
[2024-06-03] MEDS: BUMETANIDE 1 MG TABLET PO (08:20)
--- NOTE | 2024-06-03 10:59 | P.CONCA_ITS ---
History of Present Illness History of Present Illness Consult date: 06/03/24 Requesting physician: Kyler Paz Chief complaint: Generalized weakness, symptomatic bradycardia History of present illness: Hospitalist note: 88-year-old male with history of CABG, COPD. Recently had carotid stent placed on May 20 at [facility]. Presented because of worsening weakness and erratic heart rate over the past 2 to 3 days. States has been more weak with increased shortness of breath. Having a harder time getting around with his rollator. This is worsened over the past 2 to 3 days. Noted today to have irregular heart rate with heart rate fluctuating from 30-90 at home. Denies cough, congestion, fever, syncope, loss of consciousness. No known sick contacts. On evaluation in the ED, patient found to be hypertensive with systolics of 200. Heart rate fluctuating with EKG obtained showing 2:1 heart block. Labs otherwise unremarkable. Cardiology was consulted, recommended nitroprusside and dopamine. 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 They were contacted and accepted patient but have no beds at this time. Recommended Cardene drip for hypertensive urgency. Prior to drips being initiated, blood pressure improved. Medicine consulted for admission while awaiting possible transfer. Cardiology note: This is an 88-year-old white male with past medical history of coronary artery disease status post CABG, pulmonary embolism in December 2023-on Eliquis and carotid artery disease who presented to hospital with complaints of generalized weakness and an erratic heart rate ranging from 30 to 90 bpm at home. Upon presentation to ER patient was noted to be in a 2-1 AV block and was admitted for symptomatic bradycardia and possible pacemaker placement. Patient is requesting transfer to [facility] [place] to see his character actor. He has been accepted and is awaiting bed placement. Patient goes in and out of a 2-1 AV block with heart rates ranging from the 50s to the 70s. Patient does report that last night his nurse woke him up a few times because his heart rate got down into the 20s. This morning patient is resting comfortably in bed and denies chest pain or shortness of breath. [facility] Disclaimer: The information contained in this section may have been updated after the patient was seen, as this information can be updated by other users. Medical History Pulmonary embolism Paraseptal emphysema Spinal compression fracture Macular degeneration CVA (cerebral vascular accident) Myocardial infarction Hyperlipidemia Hypertension Hernia Surgical History Hx of kyphoplasty History of cardiac cath Hx of CABG History of carotid endarterectomy History of appendectomy Family History No significant family history Social History Smoking Status: Former smoker how long ago did patient quit smokin years ago alcohol intake: never current occupational status: retired Travel in the last 8 weeks: None Review of Systems Review of Systems Review of systems:: pertinent systems reviewed and negative unless documented below Constitutional Constitutional: Reports weakness *Neurologic Neurologic: Reports system reviewed and no additional complaints, except as documented, Reports as per HPI and Reports weakness Exam Data for Last 24 hours Vital signs and Labs for Last 24 Hours: Temp Pulse Resp BP Pulse Ox O2 Del Method O2 Flow Rate 97.7 F 60 20 152/64 H 97 Nasal Cannula 1 06/03/24 07:47 06/03/24 08:00 06/03/24 07:47 06/03/24 07:47 06/03/24 08:00 06/03/24 09:00 06/03/24 09:00 Laboratory Results - last 24 hr 06/01/24 13:58: POC Glucose 129 H 06/03/24 06:09: WBC 6.4, RBC 4.44 L, Hgb 14.1, Hct 41.5 L, MCV 93.5, MCH 31.8 H, MCHC 34.0, RDW 14.4, Plt Count 214, MPV 10.5 H, Neut % (Auto) 52.0, Lymph % (Auto) 37.2, [place] % (Auto) 9.0, Eos % (Auto) 0.9, Baso % (Auto) 0.6, Neut # (Auto) 3.3, Lymph # (Auto) 2.4, [place] # (Auto) 0.6, Eos # (Auto) 0.1, Baso # (Auto) 0.0, Sodium 139, Potassium 3.5, Chloride 103, Carbon Dioxide 28, Anion Gap 11.5, BUN 27 H D, Creatinine 1.10, Estimated Creat Clear 69, Estimated GFR 63, Est GFR ( Amer) 77, Glucose 111 H, Calcium 9.2, Magnesium 2.2 D, Total Bilirubin 0.9, AST 27, ALT 17, Alkaline Phosphatase 76, Total Protein 6.7, Albumin 3.7, Globulin 3.0, Albumin/Globulin Ratio 1.2 I & O for Last 24 hours: Intake & Output 05/31/24 06/01/24 06/02/24 06/03/24 23:59 23:59 23:59 23:59 Intake Total 220 / 220 940 / 990 410 / 410 Output Total 200 / 800 1950 / 1950 300 / 300 Balance 20 / -580 -1010 / -960 110 / 110 Weight 155 lb 151 lb 1.6 oz 222 lb 5 oz Constitutional Constitutional: no acute distress *Routine Respiratory Exam Respiratory: Present CTA bilaterally and symmetric chest movement *Routine Cardiovascular Exam Cardiovascular: Present Normal S1, Normal S2 and bradycardia *Routine Abdominal Exam Abdominal: Present soft and normoactive bowel sounds; Absent tenderness *Routine Extremities Exam Extremities: Present full ROM and normal capillary refill; Absent edema *Routine Skin Exam Skin: Present intact, dry and warm Detailed Neck Exam: Thyroids Thyroid: Absent bruit Meds Home Medications and Allergies Home Medications ?Medication ?Instructions ?Recorded ?Confirmed ?Type clopidogrel 75 mg tablet 75 mg PO DAILY 12/03/22 06/02/24 History nitroglycerin 0.4 mg sublingual 0.4 mg sublingual Q5MINP PRN Chest 12/03/22 06/02/24 History tablet Pain simvastatin 20 mg tablet 20 mg PO HS 12/03/22 06/02/24 History apixaban 5 mg tablet (Eliquis) 5 mg PO BID 30 days #60 tabs 02/29/24 06/02/24 Rx lisinopril 20 mg tablet 20 mg PO DAILY 06/01/24 06/02/24 History bumetanide 1 mg tablet 1 mg PO DAILY #0 tabs 06/02/24 Rx enoxaparin 80 mg/0.8 mL 70 mg (0.7 mL) SQ Q12H #0 mL 06/02/24 Rx subcutaneous syringe pantoprazole 40 mg tablet,delayed 40 mg PO HS #0 tabs 06/02/24 Rx release New Prescriptions to Start Prescriptions: Allergies Allergy/AdvReac Type Severity Reaction Status Date / Time No Known Allergies Allergy Verified 04/12/24 11:51 Assessment and Plan *Assessment and plan (1) Symptomatic bradycardia: Status: Acute Category: Medical Code(s): R00.1 - Bradycardia, unspecified (2) High degree atrioventricular block: Status: Acute Category: Medical Code(s): I44.39 - Other atrioventricular block (3) Carotid stenosis: Status: Acute Category: Medical Code(s): I65.29 - Occlusion and stenosis of unspecified carotid artery (4) Pulmonary embolism: Status: Acute Category: Medical Code(s): I26.99 - Other pulmonary embolism without acute cor pulmonale (5) Hypertension: Status: Acute Category: Medical Code(s): I10 - Essential (primary) hypertension (6) Coronary artery disease: Status: Acute Category: Medical Code(s): I25.10 - Atherosclerotic heart disease of [place] coronary artery without angina pectoris Plan Symptomatic bradycardia Transient 2:1 AV block Hold all AV blockers Initiate dopamine drip for heart rate falling below 40 bpm Will likely need pacemaker placement. Currently awaiting transfer to [facility] [place] per patient's request as that is where his cardiology team is. Acute HFpEF Prelim echocardiogram shows a normal ejection fraction with mild PI and mild RV dilation. Official read is pending Chest x-ray on admission showed cardiomegaly with vascular prominence which may represent interstitial edema Patient has been diuresed over the weekend Continue Bumex 1 mg p.o. daily Consider addition of Jardiance prior to discharge History of coronary artery disease Status post CABG Continue home Plavix 75 mg daily Hold beta-blockers Continue simvastatin 20 mg p.o. daily Hypertension Continue lisinopril 20 mg daily History of carotid artery stenosis Continue Plavix and statin History of pulmonary embolism December 2023 Eliquis currently on hold for possible pacemaker placement Continue Lovenox CV summary 06/03/2024: Patient is awaiting transfer to [facility] [place] for a 2-1 AV block, symptomatic bradycardia and evaluation for pacemaker placement. Preliminary echo shows a normal ejection fraction.
[2024-06-03] MEDS: POTASSIUM CHLORIDE 20MEQ TAB 40 MEQ PO ×2 (11:08→14:03)
--- NOTE | 2024-06-03 20:06 | EXP.ACUTE.PN ---
Subjective *Date: 06/03/24 *Time: 20:06 Interval history: Stable this morning on 1 L oxygen. Denies chest pain. Heart rate into the 40s overnight but otherwise had minimal episodes of heart block. Denies any chest pain or shortness of breath. No nausea or vomiting. Blood pressure 150/60s on morning rounds. Heart rate 50. dipped to 20s overnight, was asymptomatic while sleeping Medical Exam Vital signs and Labs for Last 24 Hours: Vital Signs Temp Pulse Pulse Resp BP Pulse Ox O2 Del Method 06/03/24 18:52 Nasal Cannula 06/03/24 17:00 Room Air 06/03/24 16:00 70 06/03/24 16:00 98.1 F 60 16 154/69 H 90 L Room Air 06/03/24 15:00 Room Air 06/03/24 13:00 Room Air 06/03/24 12:00 60 06/03/24 11:59 97.6 F 57 L 16 161/63 H 95 Room Air 06/03/24 11:00 Room Air 06/03/24 09:00 Nasal Cannula 06/03/24 08:00 60 06/03/24 08:00 97 Nasal Cannula 06/03/24 07:47 97.7 F 63 20 152/64 H 97 Nasal Cannula 06/03/24 06:27 Nasal Cannula 06/03/24 04:33 Nasal Cannula 06/03/24 04:00 97.6 F 52 L 16 151/58 H 94 L Room Air 06/03/24 04:00 50 L 06/03/24 03:00 Nasal Cannula 06/03/24 01:00 Nasal Cannula 06/03/24 00:00 50 L 06/03/24 00:00 97.8 F 62 16 151/59 H 92 L Nasal Cannula 06/02/24 23:00 Nasal Cannula O2 Flow Rate 06/03/24 18:52 1 06/03/24 17:00 06/03/24 16:00 06/03/24 16:00 06/03/24 15:00 06/03/24 13:00 06/03/24 12:00 06/03/24 11:59 06/03/24 11:00 06/03/24 09:00 1 06/03/24 08:00 06/03/24 08:00 1 06/03/24 07:47 2 06/03/24 06:27 1 06/03/24 04:33 1 06/03/24 04:00 06/03/24 04:00 06/03/24 03:00 1 06/03/24 01:00 1 06/03/24 00:00 06/03/24 00:00 2 06/02/24 23:00 1 Intake and Output 06/03/24 06/03/24 06/03/24 07:59 15:59 23:59 Intake Total 50 / 410 360 / 410 Output Total 300 / 1150 850 / 1150 Balance -250 / -740 360 / -740 -850 / -740 Intake: Intake, Oral Amount 50 / 410 360 / 410 Output: Output, Urine Amount 300 / 1150 850 / 1150 Other: Number of Unmeasured Voids 2 Weight 100.839 kg Patient Weight 06/03/24 23:59 Weight 100.839 kg Laboratory Results - last 24 hr 06/01/24 13:58: POC Glucose 129 H 06/03/24 06:09: WBC 6.4, RBC 4.44 L, Hgb 14.1, Hct 41.5 L, MCV 93.5, MCH 31.8 H, MCHC 34.0, RDW 14.4, Plt Count 214, MPV 10.5 H, Neut % (Auto) 52.0, Lymph % (Auto) 37.2, [place] % (Auto) 9.0, Eos % (Auto) 0.9, Baso % (Auto) 0.6, Neut # (Auto) 3.3, Lymph # (Auto) 2.4, [place] # (Auto) 0.6, Eos # (Auto) 0.1, Baso # (Auto) 0.0, Sodium 139, Potassium 3.5, Chloride 103, Carbon Dioxide 28, Anion Gap 11.5, BUN 27 H D, Creatinine 1.10, Estimated Creat Clear 69, Estimated GFR 63, Est GFR ( Amer) 77, Glucose 111 H, Calcium 9.2, Magnesium 2.2 D, Total Bilirubin 0.9, AST 27, ALT 17, Alkaline Phosphatase 76, Total Protein 6.7, Albumin 3.7, Globulin 3.0, Albumin/Globulin Ratio 1.2 I & O for Labs for Last 24 Hours: Intake & Output 05/31/24 06/01/24 06/02/24 06/03/24 23:59 23:59 23:59 23:59 Intake Total 220 / 220 940 / 990 410 / 410 Output Total 200 / 800 1950 / 1950 1150 / 1150 Balance 20 / -580 -1010 / -960 -740 / -740 Weight 70.307 kg 68.538 kg 100.839 kg Constitutional: Present no acute distress, average body habitus and chronically ill appearing Head: Present atraumatic and normocephalic ENT: Present normal exam Neck: Present normal inspection Respiratory: Present normal respiratory effort; Absent accessory muscle use, rhonchi, wheezes or crackles Cardiac: Present Reg Rate and Rhythm and No Murmur GI: Present soft and normal bowel sounds; Absent distention or tenderness Rectal (male): Present deferred Extremities: Present normal inspection and full ROM; Absent edema Skin: Present intact; Absent erythema Neuro: Present Grossly Intact, alert, awake, oriented x 3 and moves all extremities Assessment and Plan *Assessment and plan (1) High degree atrioventricular block: Status: Acute Category: Medical Code(s): I44.39 - Other atrioventricular block (2) Symptomatic bradycardia: Status: Acute Category: Medical Code(s): R00.1 - Bradycardia, unspecified (3) Hypertension: Status: Acute Category: Medical Code(s): I10 - Essential (primary) hypertension (4) Hyperlipidemia: Status: Acute Category: Medical Code(s): E78.5 - Hyperlipidemia, unspecified (5) Debility: Status: Acute Category: Medical Code(s): R53.81 - Other malaise (6) Weakness: Status: Acute Category: Medical Code(s): R53.1 - Weakness (7) CVA (cerebral vascular accident): Status: Chronic Category: Medical Code(s): I63.9 - Cerebral infarction, unspecified (8) Carotid stenosis: Status: Acute Category: Medical Code(s): I65.29 - Occlusion and stenosis of unspecified carotid artery Plan Mr. Awan is an 88-year-old male with history of CABG, COPD, on oxygen intermittently during the day and 3 L at night. Had a recent stenting of carotid artery stenosis. Presented to the ER because of complaint of weakness and significant variability in his heart rate. Weakness is gotten worse over the past 3 days. On evaluation, found to have intermittent 2-1 AV block. In conjunction with a symptomatic bradycardia, medicine was consulted for admission. Discussed case with ER provider, request admission for monitoring on telemetry and possible treatment along with consideration for pacemaker placement. Patient requested [facility], currently on a wait list. I agreed to admit for further care. Monitoring on telemetry. Blood pressure better this morning. Currently not on any drips. Continues to require inpatient management. Cardiology to evaluate today. Problems addressed as follows: Acute on chronic HFpEF Symptomatic bradycardia High-grade AV block with 2:1 [place] CAD -Patient not on any pipe blockading medications. No beta-blockers or calcium channel blockers. Monitor on continuous telemetry. If heart rate consistently below 40, will initiate dopamine 5 mcg/kg/min -Discussed case with cardiology today, recommend awaiting transfer for pacemaker placement at patient request. Prelim echo obtained today shows normal EF with mild PI and mild RV dilation. -Continue Bumex 1 mg p.o. daily, consider addition of Jardiance prior to discharge -Continue home lisinopril 20 mg daily, Continue home Plavix 75 mg nightly. Holding Eliquis in anticipation of possible pacemaker placement. -Bridge anticoagulation with Lovenox 1 mg/kg twice daily -Kidney function normal with BUN 27, creatinine 1.1, potassium 3.5, magnesium 2.2. Repeat CBC, CMP, magnesium ordered for the morning Chronic oxygen requirement: Baseline 2 L as needed during the day, 3 L at night. Satting mid 90s on 1 L currently. Will wean as tolerated. GERD: Continue home PPI History of CVA with mild cognitive impairment. Continue with day night routine. Minimize disruptions at night. Caution with sedating medications at a risk for delirium. Full code Hold Eliquis, bridge with lovenox 1mg/kg Cardiac diet
[2024-06-03] MEDS: PRAVASTATIN 40MG TAB 40 MG PO (20:27)
[2024-06-03] MEDS: PANTOPRAZOLE 40MG TABLET 40 MG PO (20:27)
[2024-06-04] VITALS: BP 137/51; PULSE 53; PULSE 60; RESP 14; TEMP 36.4; O2SAT 96
--- NOTE | 2024-06-04 01:39 | EXP.DCTXFER ---
Discharge/Transfer Plan of Care Resident has been informed of condition and prognosis?: Yes (Plan disch) Mobility Status: ambulatory w/o assistance Goal for planned treatment course: Return to previous facility where stents were placed Rehab Potential: Fair I concur with the most recent History & Physical: Yes Date of most recent H & P: 06/01/24 Certification: I have reviewed and agree with this resident's plan of care. I certify that post-hospital longterm facility services are required to be given on an inpatient basis because of the need for longterm care on a continuing basis for the condition(s) for which he/she is receiving inpatient hospital services prior to admission to swing bed. I also certify that the resident meets existing SNF level of care definition.
--- NOTE | 2024-06-04 01:40 | PC.NURSE ---
[facility] called for available bed for pt transfer. Nurse talked to MARQUISE patel. Nurse stated to leave IV in place for transport. V/s, ox4, 1LNC. Plan of care ongoing until transfer.
--- NOTE | 2024-06-04 01:40 | EXP.DC.SUM ---
General Admission date:: 06/01/24 Discharge date: 06/04/24 HPI HPI HPI: Admitted to Psychiatric, no beds were available at [facility] was placed on the floor H&P note 88-year-old male with history of CABG, COPD. Recently had carotid stent placed on May 20 at [facility]. Presented because of worsening weakness and erratic heart rate over the past 2 to 3 days. States has been more weak with increased shortness of breath. Having a harder time getting around with his rollator. This is worsened over the past 2 to 3 days. Noted today to have irregular heart rate with heart rate fluctuating from 30-90 at home. Denies cough, congestion, fever, syncope, loss of consciousness. No known sick contacts. On evaluation in the ED, patient found to be hypertensive with systolics of 200. Heart rate fluctuating with EKG obtained showing 2:1 heart block. Labs otherwise unremarkable. Cardiology was consulted, recommended nitroprusside and dopamine. Patient requested transfer to [facility] however results were his customer service associate is. They were contacted and accepted patient but have no beds at this time. Recommended Cardene drip for hypertensive urgency. Prior to drips being initiated, blood pressure improved. Medicine consulted for admission while awaiting possible transfer. On my evaluation, patient is pleasant and at his baseline level of function. Family at bedside helps supplement history. Blood pressure improved with systolics of 150 on monitor at time of my evaluation. Heart rate in sinus rhythm with intermittent block. Does not sustained heart rate less than 40 for more than a few seconds. BNP was evaluated and is found to be elevated. Concern for component of volume overload. Administering 1 mg Bumex IV. Weaning oxygen. Weaned to 1 L nasal cannula during my evaluation. Denies any shortness of breath. Mr. Neumann is an 88-year-old male with history of CABG, COPD, on oxygen intermittently during the day and 3 L at night. Had a recent stenting of carotid artery stenosis. Presented to the ER because of complaint of weakness and significant variability in his heart rate. Weakness is gotten worse over the past 3 days. On evaluation, found to have intermittent 2-1 AV block. In conjunction with a symptomatic bradycardia, medicine was consulted for admission. Discussed case with ER provider, request admission for monitoring on telemetry and possible treatment along with consideration for pacemaker placement. Patient requested [facility], currently on a wait list. I agreed to admit for Health Information Management [id number] [facility] 6 Patient name: Junaid Awan further care. Monitoring on telemetry. Blood pressure showing improvement by the time he got to the floor. Will consider dopamine drip if patient develops symptomatic bradycardia with rate less than 40. Necessitating inpatient care. 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 Improved to systolics 140-150. Heart rate variable from 30s to 80s. -Patient not on any pipe blockading medications. No beta-blockers or calcium channel blockers. Monitor on continuous telemetry. If heart rate consistently below 40, will initiate dopamine 5 mcg/ kg/min -Holding on nicardipine or nitroprusside drip due to improvement in blood pressure. -Resume home lisinopril 20 mg daily, consider 10 mg dose tonight if blood pressure increases. Continue home Plavix 75 mg nightly. Holding Eliquis in anticipation of possible pacemaker placement. -Bridge anticoagulation with Lovenox 1 mg/kg twice daily -BNP elevated above thousand, initiate Bumex 1 mg IV once. Component of HFpEF. Last echo obtained at our institution was in 2022 showing heart failure with preserved ejection fraction. Will obtain records from [facility] for recent echo. If unable to get records, will repeat echocardiogram Monday morning -Cardiology consulted to evaluate Monday for possible pacemaker placement; awaiting possible transfer to [facility] at patient's request. No beds available at this time -Kidney function normal with BUN 20, creatinine 0.9. Hemoglobin normal at 15. TSH slightly above normal at 5.6. Troponin 0.04. Repeat CBC, CMP, magnesium ordered for the morning. Chronic oxygen requirement: Baseline 2 L as needed during the day, 3 L at night. Satting mid 90s on 2 L currently. Will wean as tolerated. Cardiology note: This is an 88-year-old white male with past medical history of coronary artery disease status post CABG, pulmonary embolism in December 2023-on Eliquis and carotid artery disease who presented to hospital with complaints of generalized weakness and an erratic heart rate ranging from 30 to 90 bpm at home. Upon presentation to ER patient was noted to be in a 2-1 AV block and was admitted for symptomatic bradycardia and possible pacemaker placement. Patient is requesting transfer to [facility] to see his customer service associate. He has been accepted and is awaiting bed placement. Patient goes in and out of a 2-1 AV block with heart rates ranging from the 50s to the 70s. Patient does report that last night his nurse woke him up a few times because his heart rate got down into the 20s. This morning patient is resting comfortably in bed and denies chest pain or shortness of breath. I have just reexamined the patient. No respiratory distress cardiovascular is adequate at this time patient is alert oriented asking questions well., He is extremely disabled and does require help for daily care. He can normal help be able to stand beside the bed but requires a walker to move. At this point in time he expresses no distress no signs of pain. Respiration is normal. Skin color is pink Hospital Course Hospital Course Hospital Course: Patient has significant bradycardia. There were no beds available at [facility] on his evaluation in the emergency room.. It was felt that a pacemaker may be required for this patient patient was seen by cardiology. Patient has remained stable with us and expecting to be transferred to [facility] for further care Exam Data for Last 24 hours Vital signs and Labs for Last 24 Hours: Temp Pulse Resp BP Pulse Ox O2 Del Method O2 Flow Rate 97.5 F L 53 L 14 137/51 L 96 Nasal Cannula 1 06/04/24 00:00 06/04/24 00:00 06/04/24 00:00 06/04/24 00:00 06/04/24 00:00 06/04/24 01:00 06/04/24 01:00 Laboratory Results - last 24 hr 06/01/24 13:58: POC Glucose 129 H 06/03/24 06:09: WBC 6.4, RBC 4.44 L, Hgb 14.1, Hct 41.5 L, MCV 93.5, MCH 31.8 H, MCHC 34.0, RDW 14.4, Plt Count 214, MPV 10.5 H, Neut % (Auto) 52.0, Lymph % (Auto) 37.2, Hockley % (Auto) 9.0, Eos % (Auto) 0.9, Baso % (Auto) 0.6, Neut # (Auto) 3.3, Lymph # (Auto) 2.4, [place]ockley # (Auto) 0.6, Eos # (Auto) 0.1, Baso # (Auto) 0.0, Sodium 139, Potassium 3.5, Chloride 103, Carbon Dioxide 28, Anion Gap 11.5, BUN 27 H D, Creatinine 1.10, Estimated Creat Clear 69, Estimated GFR 63, Est GFR ( Amer) 77, Glucose 111 H, Calcium 9.2, Magnesium 2.2 D, Total Bilirubin 0.9, AST 27, ALT 17, Alkaline Phosphatase 76, Total Protein 6.7, Albumin 3.7, Globulin 3.0, Albumin/Globulin Ratio 1.2 I & O for Last 24 hours: Intake & Output 06/01/24 06/02/24 06/03/24 06/04/24 05:59 05:59 05:59 05:59 Intake Total 220 / 220 990 / 990 460 / 460 Output Total 800 / 800 1350 / 1650 1150 / 1150 Balance -580 / -580 -360 / -660 -690 / -690 Weight 151 lb 1.6 oz 222 lb 5 oz Radiology Reports for the Last 24 Hours: 1. Cardiomegaly and vascular prominence may represent interstitial edema.. 2. Opacities in both bases may represent atelectasis or pneumonia. Constitutional Constitutional: no acute distress *Routine HEENT Exam Head: Present normocephalic and atraumatic Eye: Present EOMI and PERRL ENT: Present mucous membranes moist *Routine Neck Exam Neck: Present supple *Routine Respiratory Exam Respiratory: Present diminished air movement, normal respiratory effort, able to speak in complete sentences and symmetric chest movement *Routine Cardiovascular Exam Cardiovascular: Present bradycardia *Routine Abdominal Exam Abdominal: Present soft and normoactive bowel sounds Comments: No tenderness *Routine Extremities Exam Extremities: Present pulses intact Comments: No significant abnormalities in joints. For man his age Routine Back/Spine/Pelvis Exam Back/Spine: Present full ROM Comments: Patient with minimal assistance is able to stand but must have a walker to be able to ambulate *Routine Skin Exam Skin: Present intact *Routine Neurological Exam Neurological: Present alert and oriented X3 Comments: No significant neurological exams. Patient is generally weak but he is alert oriented answering questions well and asking good questions. Routine Psychiatric Exam Psychiatric: Present normal affect, cooperative, good insight and good judgment Results Data Completed and Pending Labs on day of discharge: Labs from last 24 hours 04/07/25 04/05/25 06:09 13:58 WBC 6.4 RBC 4.44 L Hgb 14.1 Hct 41.5 L MCV 93.5 MCH 31.8 H MCHC 34.0 RDW 14.4 Plt Count 214 MPV 10.5 H Neut % (Auto) 52.0 Lymph % (Auto) 37.2 Hockley % (Auto) 9.0 Eos % (Auto) 0.9 Baso % (Auto) 0.6 Neut # (Auto) 3.3 Lymph # (Auto) 2.4 Hockley # (Auto) 0.6 Eos # (Auto) 0.1 Baso # (Auto) 0.0 Sodium 139 Potassium 3.5 Chloride 103 Carbon Dioxide 28 Anion Gap 11.5 BUN 27 H D Creatinine 1.10 Estimated Creat Clear 69 Estimated GFR 63 Est GFR ( Amer) 77 Glucose 111 H POC Glucose 129 H Calcium 9.2 Magnesium 2.2 D Total Bilirubin 0.9 AST 27 ALT 17 Alkaline Phosphatase 76 Total Protein 6.7 Albumin 3.7 Globulin 3.0 Albumin/Globulin Ratio 1.2 DS: Diagnosis Discharge Diagnosis (1) High degree atrioventricular block: Start date: 06/03/24 Status: Acute Code(s): I44.39 - Other atrioventricular block (2) Symptomatic bradycardia: Start date: 06/03/24 Status: Acute Code(s): R00.1 - Bradycardia, unspecified (3) Hypertension: Start date: 05/28/24 Status: Acute Code(s): I10 - Essential (primary) hypertension Problem details: Noting long-term history (4) Hyperlipidemia: Start date: 06/03/24 Status: Acute Code(s): E78.5 - Hyperlipidemia, unspecified Problem details: Noting hyperlipidemia long-term (5) Debility: Start date: 06/03/24 Status: Acute Code(s): R53.81 - Other malaise Problem details: Patient needs help with daily care. (6) Weakness: Start date: 06/03/24 Status: Acute Code(s): R53.1 - Weakness Problem details: Generalized weakness we rate to overall health status (7) CVA (cerebral vascular accident): Start date: 06/03/24 Status: Chronic Code(s): I63.9 - Cerebral infarction, unspecified Problem details: Patient is stable at this time CVA was in the past (8) Carotid stenosis: Start date: 06/03/24 Status: Acute Code(s): I65.29 - Occlusion and stenosis of unspecified carotid artery Problem details: Long history past history of this. Related to age Meds Home Medications and Allergies Home Medications ?Medication ?Instructions ?Recorded ?Confirmed ?Type clopidogrel 75 mg tablet 75 mg PO DAILY 12/03/22 06/02/24 History nitroglycerin 0.4 mg sublingual 0.4 mg sublingual Q5MINP PRN Chest 12/03/22 06/02/24 History tablet Pain simvastatin 20 mg tablet 20 mg PO HS 12/03/22 06/02/24 History apixaban 5 mg tablet (Eliquis) 5 mg PO BID 30 days #60 tabs 02/29/24 06/02/24 Rx lisinopril 20 mg tablet 20 mg PO DAILY 06/01/24 06/02/24 History bumetanide 1 mg tablet 1 mg PO DAILY #0 tabs 06/02/24 Rx enoxaparin 80 mg/0.8 mL 70 mg (0.7 mL) SQ Q12H #0 mL 06/02/24 Rx subcutaneous syringe pantoprazole 40 mg tablet,delayed 40 mg PO HS #0 tabs 06/02/24 Rx release New Prescriptions to Start Prescriptions: Allergies Allergy/AdvReac Type Severity Reaction Status Date / Time No Known Allergies Allergy Verified 04/12/24 11:51 Discharge Plan Disposition Patient Disposition: Xfer Short-Term Hosp Condition: Fair Discharge Order Discharge Orders: Discharge Order (Routine); Ordered 06/04/24 Ordered By: Marciano Benavidez Follow up Plan Prescriptions/Medication Reconciliation: New bumetanide 1 mg Tablet 1 mg PO DAILY Qty: 0 0RF enoxaparin 80 mg/0.8 mL Syringe 70 mg SQ Q12H Qty: 0 0RF pantoprazole 40 mg Tablet,Delayed Release (Dr/Ec) 40 mg PO HS Qty: 0 0RF Continued clopidogrel 75 mg tablet 75 mg PO DAILY simvastatin 20 mg tablet 20 mg PO HS nitroglycerin 0.4 mg Tablet, Sublingual 0.4 mg SUBLINGUAL Q5MINP PRN (Reason: Chest Pain) Rx Instructions: do not exceed 3 doses per episode lisinopril 20 mg Tablet 20 mg PO DAILY Held Eliquis 5 mg tablet 5 mg PO BID 30 Days Qty: 60 4RF Hold Instructions: bridging with lovenox pending pacemaker placement Discontinued lansoprazole 30 mg capsule,delayed release(DR/EC) 30 mg PO DAILY bumetanide 0.5 mg tablet 0.5 mg PO DAILY Patient Comments: TAKE 1 TABLET BY MOUTH DAILY Problem Reconciliation Problems Reviewed?: Yes Patient Discharge Instructions ACTIVITY: Continue current activity DIET: continue same diet Stand Alone Forms: Transfer Record Patient Instructions: DI for Heart Block, DI for Bradycardia Print Language: Swedish Providers Primary Care Provider: Janis Sparks Admit Provider: Kyler Paz Attending Provider: Kyler Paz
--- NOTE | 2024-06-04 02:06 | PC.NURSE ---
Patient left with EMS at 02:05.
--- OUTSIDE RECORDS SUMMARY | 2024-06-06 19:50 | XMS_ITS ---
Author Organization Unknown Vital Signs BpStanding BpSitting BpSupine Date Temperature HeartRate Weight Hei ght Spo2 Respiration Bmi HeadCircumference FieldCount TimeRecorded NeckCircumferen ce WaistCircumference Pulse 148/80 03/13 00:00 :00 98.3 66 152,0 5,7 93 23.8 7 08:30
== END 2024-06-04 02:09 | disposition short-term general hospital (02) | DRG 308 ==
LOC: ER 15:44 → 2ND 15:50
PROVIDERS: Emergency Medicine; Nurse Practitioner Family; Admitting Provider Internal Medicine Adolescent Medicine; Emergency Provider Emergency Medicine; PCP Family Medicine; Visit Provider Internal Medicine Adolescent Medicine
DX: I44.1 Atrioventricular block, second degree (principal); I50.33 Acute on chronic diastolic (congestive) heart failure; I11.0 Hypertensive heart disease with heart failure; J44.9 Chronic obstructive pulmonary disease, unspecified; E78.5 Hyperlipidemia, unspecified; I16.0 Hypertensive urgency; I25.2 Old myocardial infarction; I25.10 Atherosclerotic heart disease of native coronary artery without angina pectoris; R53.1 Weakness; R00.1 Bradycardia, unspecified; I45.10 Unspecified right bundle-branch block; K21.9 Gastro-esophageal reflux disease without esophagitis; I69.319 Unspecified symptoms and signs involving cognitive functions following cerebral infarction; Z95.1 Presence of aortocoronary bypass graft; Z99.81 Dependence on supplemental oxygen; Z79.899 Other long term (current) drug therapy; Z95.828 Presence of other vascular implants and grafts; Z74.1 Need for assistance with personal care; Z99.89 Dependence on other enabling machines and devices; Z86.711 Personal history of pulmonary embolism; Z87.891 Personal history of nicotine dependence; Z79.02 Long term (current) use of antithrombotics/antiplatelets
CPT/HCPCS: 36415; 71045; 80053; 82962; 83735; 83880; 84439; 84443; 84484; 85007; 85014; 85018; 85025; 85048; 85049; 85378; 86803; 87389; 93005; 93306; 97161; 97530; 99291; G0378; J1650; J1939

== ENCOUNTER 2024-07-03 12:55 | Outpatient (CLI) | payer MEDICARE, BC, SELFPAY ==
[2024-07-03 13:35] LABS: Basophils % 0.7 % (0.1-2.0); Eosinophils % 0.7 % (0.1-12.0); Hematocrit 40.2 % (42.0-52.0); Hemoglobin 13.7 g/dL (14.1-18.0); Immature Granulocytes # 0.03 10^3uL; Immature Granulocytes % 0.5 %; Lymphocytes # 2.4 K/mm3 (0.7-4.5); Lymphocytes % 39.4 % (10-50); Mean Corpuscular HGB Conc 34.1 g/dL (31.8-35.4); Mean Corpuscular Hemoglobin 31.7 pg (27.0-31.2); Mean Corpuscular Volume 93.1 fl (80-94); Mean Platelet Volume 9.9 fl (7.4-10.4); Monocytes # 0.4 K/mm3 (0.1-1.0); Monocytes % 6.7 % (1.7-9.3); Neutrophils # 3.1 K/mm3 (1.8-7.8); Nucleated Red Blood Cells # 0 10^3/uL; Nucleated Red Blood Cells % 0 %; Platelet Count 223 K/mm3 (142-424); Red Blood Count 4.32 M/mm3 (4.60-6.20); Red Cell Distribution Width 14.4 % (11.5-17.5); Red Cell Distribution Width-SD 49.5 fL
== END 2024-07-03 23:59 | disposition home or self-care (01) ==
LOC: LAB 12:56
PROVIDERS: PCP Family Medicine; Visit Provider Internal Medicine Pulmonary Disease
DX: J45.909 Unspecified asthma, uncomplicated (principal); I26.99 Other pulmonary embolism without acute cor pulmonale
CPT/HCPCS: 36415; 85025; 85378